=== PATIENT | female | born 1935 | race Caucasian/White ===

== ENCOUNTER 2019-04-03 08:29 | Emergency (ER) | payer MEDICARE, OTHER ==
[2019-04-03 08:42] VITALS: BP 155/90
--- NOTE | 2019-04-03 09:57 | EDM.PDOC ---
ED HPI GENERAL MEDICAL PROBLEM - General Chief Complaint: Respiratory Problem Stated Complaint: RIB PAIN DUE TO FALL Time Seen by Provider: 04/03/19 08:51 Source of Information: Reports: Patient, RN Notes Reviewed History Limitations: Reports: No Limitations - History of Present Illness INITIAL COMMENTS - FREE TEXT/NARRATIVE: The patient states that she tripped and fell over a garden hose in her backyard on 03/24/2019, somehow injuring her lower left ribs. She is not sure what she might have struck them on. Since then, she reports that she feels dyspneic while lying down, especially if lying on her left side, although lying supine is painful as well. Her greatest pain is when she gets into bed. She states that she is able to walk without difficulty. She feels like she may have exacerbated the pain when getting out of a pickup truck yesterday. She has been taking Tylenol for her discomfort. Since she is on Coumadin, she cannot take an NSAID. No prior medical evaluation for this complaint. The patient's PCP is Dr. Geoffrey Tidwell. Her Cardiology contact is JOE Rendon. Left Lower Chest Pain Score (Numeric/FACES): 7 - Related Data Allergies Allergy/AdvReac Type Severity Reaction Status Date / Time morphine Allergy Anaphylactic Verified 04/03/19 08:42 Shock oxycodone Allergy Anaphylactic Verified 04/03/19 08:42 Shock codeine AdvReac Chest Pain Verified 04/03/19 08:42 nitroglycerin AdvReac Change Verified 04/03/19 08:42 [From Nitroglyn] Mental Status tramadol AdvReac Insomnia Verified 04/03/19 08:42 shellfish AdvReac Tachycardia Uncoded 04/03/19 08:42 Home Meds: Home Meds Furosemide [Lasix] 40 tab PO BEDTIME 11/20/14 [History] Furosemide [Lasix] 80 mg PO DAILY 11/20/14 [History] Losartan [Cozaar] 25 tab PO DAILY 11/20/14 [History] Metoprolol Succinate [Toprol Xl] 100 mg PO DAILY 11/20/14 [History] Spironolactone [Aldactone] 12.5 mg PO DAILY 11/20/14 [History] Thyroid [[place] Thyroid] 30 mg PO DAILY 11/20/14 [History] Warfarin [Coumadin] 4 tab PO SUTUWETHSA 11/20/14 [History] Metoprolol Succinate 50 mg PO BEDTIME 04/03/19 [History] Warfarin [Coumadin] 2 mg PO MOFR 04/03/19 [History] Past Medical History Cardiovascular History: Reports: Afib (paroxysmal), CAD, Cardiomyopathy ( Hypertrophic), Heart Failure, High Cholesterol, Hypertension Gastrointestinal History: Reports: Celiac Disease, Colon Polyp, Diverticulosis, PUD Genitourinary History: Reports: Renal Calculus, Urinary Incontinence (stress incontinence) Musculoskeletal History: Reports: Osteoarthritis Neurological History: Reports: TIA, Other (See Below) (Essential tremor) Endocrine/Metabolic History: Reports: Hypothyroidism, Osteopenia - Past Surgical History HEENT Surgical History: Reports: Oral Surgery (Edentulous), Tonsillectomy Cardiovascular Surgical History: Reports: Coronary Artery Stent (x 3), Other ( See Below) (Coronary angiogram x 2) GI Surgical History: Reports: Cholecystectomy (1998), Colonoscopy (x 3), EGD (x 2) Female Surgical History: Reports: Other (See Below) (Repair of uterine prolapse) Musculoskeletal Surgical History: Reports: Amputation (partial, 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 ED EXAM, GENERAL - Physical Exam Exam: See Below Exam Limited By: No Limitations General Appearance: Alert, WD/WN, No Apparent Distress Eye Exam: Bilateral Eye: EOMI, Normal Inspection Ears: Normal External Exam, Hearing Grossly Normal Nose: Normal Inspection Throat/Mouth: Normal Inspection, Normal Lips, Normal Voice, No Airway Compromise Head: Atraumatic, Normocephalic Neck: Normal Inspection Respiratory/Chest: No Respiratory Distress, Lungs Clear, Normal Breath Sounds, No Accessory Muscle Use, Other (The patient is tender to the inferior ribs, left midaxillary line. No visible abnormality at this location, such as swelling , erythema, ecchymosis, abrasion, or rash. No pleural rub heard in this location.). No: Decreased Breath Sounds, Crackles, Rhonchi, Wheezing, Pleural Rub, Prolonged Expiration Cardiovascular: Normal Peripheral Pulses, Regular Rate, Rhythm, No Gallop, No JVD, No Murmur, No Rub Peripheral Pulses: 4+: Radial (L), Radial (R) GI/Abdominal: Normal Bowel Sounds, Soft, Non-Tender, No Organomegaly, No Distention, No Abnormal Bruit, No Mass, Other (5 x 2 cm essentially nontender ecchymosis to the left upper quadrant) (Female) Exam: Deferred Rectal (Female) Exam: Deferred Back Exam: Normal Inspection, Full Range of Motion, NT Extremities: Normal Inspection, Normal Range of Motion, No Pedal Edema, Normal Capillary Refill Neurological: Alert, Oriented, Normal Cognition, No Motor/Sensory Deficits, Other (Essential tremor noted) Psychiatric: Normal Affect Skin Exam: Warm, Dry, Intact, Normal Color, No Rash Course - Vital Signs Last Recorded V/S: Last Vital Signs Temp 36.2 C 04/03/19 08:38 Pulse 68 04/03/19 08:38 Resp 18 04/03/19 08:38 BP 155/90 H 04/03/19 08:38 Pulse Ox 97 04/03/19 08:38 - Re-Assessments/Exams Free Text/Narrative Re-Assessment/Exam: 04/03/19 09:22 I have ordered a chest x-ray to make sure that the patient has not suffered a significant consequence from a rib fracture, such as a hemothorax or pneumothorax. 04/03/19 10:53 2-view chest radiograph reviewed. The cardiac silhouette is within normal limits. No pulmonary vascular congestion. No pleural effusions seen. No focal infiltrate. No pneumothorax. There is mild scoliosis. Left shoulder reverse arthroplasty incidentally noted. Clips in the right upper quadrant, consistent with prior cholecystectomy incidentally noted. Formal read per the Radiologist pending. 04/03/19 11:01 Chest x-ray results discussed with the patient. I see no evidence of a broken rib, hemothorax, or pneumothorax. The patient likely contused the area when she fell. Because she is on Coumadin, I am recommending that she continue Tylenol, only. I explained that I do not feel she would be benefited by treatment with an opioid pain reliever, as it would likely increase her risk of falls. The patient stated that she does not tolerate opioids, anyway. Departure - Departure Time of Disposition: 11:02 Disposition: Home, Self-Care 01 Condition: Good Clinical Impression: Contusion of rib on left side - Discharge Information *PRESCRIPTION DRUG MONITORING PROGRAM REVIEWED*: Not Applicable *COPY OF PRESCRIPTION DRUG MONITORING REPORT IN PATIENT KYLER: Not Applicable Instructions: Rib Contusion Referrals: Geoffrey Tidwell MD [Primary Care Provider] - Hannah Felipe PA-C [Ordering Only Provider] - Forms: ED Department Discharge Additional Instructions: You were seen in the emergency room for left rib pain after tripping and falling 10 days ago. Workup in the ER included a chest x-ray, which did not find any evidence of a rib fracture. Based on your history, physical exam, and ER chest x-ray, you most likely contused (bruised) the area when you fell. We recommend that you continue to take [id number] Tylenol as needed for discomfort. Stay active. Walking is good. Follow-up with your PCP, Dr. Geoffrey Tidwell, as needed. If any other problems, please do not hesitate to return to the ER.
--- NOTE | 2019-04-04 11:18 | CR ---
Chest: Two views of the chest were obtained. Comparison: Previous chest x-ray of 10/12/17. Heart size is slightly enlarged. Tortuous thoracic aorta is seen. Lungs show slight left basilar atelectasis. Lungs otherwise are clear. Left shoulder prosthesis is seen. Mild degenerative change is noted within the spine. Bony structures are osteopenic. Surgical clips are seen from prior cholecystectomy. Lungs are mildly hyperinflated compatible with emphysematous change. Impression: 1. Findings as noted above. Nothing acute is appreciated on two-view chest x-ray. Diagnostic code #2
== END 2019-04-03 11:15 | disposition home or self-care (01) ==
LOC: JD.ED 08:29
DX: S20.212A Contusion of left front wall of thorax, initial encounter (principal); I11.0 Hypertensive heart disease with heart failure; I50.9 Heart failure, unspecified; I48.91 Unspecified atrial fibrillation; I25.10 Atherosclerotic heart disease of native coronary artery without angina pectoris; Z86.73 Personal history of transient ischemic attack (TIA), and cerebral infarction without residual deficits; E03.9 Hypothyroidism, unspecified; Z91.013 Allergy to seafood; Z88.5 Allergy status to narcotic agent; Z88.8 Allergy status to other drugs, medicaments and biological substances; Z79.899 Other long term (current) drug therapy; Z79.01 Long term (current) use of anticoagulants; Z98.890 Other specified postprocedural states; Z90.49 Acquired absence of other specified parts of digestive tract; Z95.5 Presence of coronary angioplasty implant and graft; W01.198A Fall on same level from slipping, tripping and stumbling with subsequent striking against other object, initial encounter
CPT/HCPCS: 71046; 71046-26; 99282; 99283-25

== ENCOUNTER 2019-04-29 13:49 | Inpatient (IN) | payer MEDICARE, OTHER ==
[~2019-04-29 13:49] MED LIST: Enoxaparin 30 MG/0.3 ML Syringe SUBCUT SCH
[2019-04-29] MEDS ORDERED: Diltiazem 50 MG/10 ML SDV IVPUSH ONE ×3 (14:15→14:46)
[2019-04-29] MEDS ORDERED: Sodium Chloride 0.9% 10 ML Syringe FLUSH PRN ×2 (14:16→16:45)
--- NOTE | 2019-04-29 14:43 | EDM.PDOC ---
ED HPI GENERAL MEDICAL PROBLEM - General Chief Complaint: Chest Pain Stated Complaint: SOB/HIGH BP Time Seen by Provider: 04/29/19 13:59 Source of Information: Reports: Patient, RN Notes Reviewed - History of Present Illness INITIAL COMMENTS - FREE TEXT/NARRATIVE: 84-year-old female comes in with anterior chest discomfort, palpitations, dizziness. She had onset of these symptoms about an hour ago. She does have history of hypertension and she states also does have personal history of "cardiomyopathy". She believes she has had atrial fibrillation in the past. She apparently is on Coumadin in addition to her other medications. No abdominal pain nausea or vomiting. She had been feeling totally fine earlier today. It sounds like she does keep quite active for her age with a large outdoor garden keeping her very busy this time of the year. She also does have history of hypertension, type 2 diabetes. Bilateral Chest Pain Score (Numeric/FACES): 7 - Related Data Allergies Allergy/AdvReac Type Severity Reaction Status Date / Time morphine Allergy Anaphylactic Verified 04/03/19 08:42 Shock oxycodone Allergy Anaphylactic Verified 04/03/19 08:42 Shock codeine AdvReac Chest Pain Verified 04/03/19 08:42 nitroglycerin AdvReac Change Verified 04/03/19 08:42 [From Nitroglyn] Mental Status tramadol AdvReac Insomnia Verified 04/03/19 08:42 shellfish AdvReac Tachycardia Uncoded 04/03/19 08:42 Home Meds: Home Meds Furosemide [Lasix] 40 tab PO BEDTIME 11/20/14 [History] Furosemide [Lasix] 80 mg PO DAILY 11/20/14 [History] Metoprolol Succinate [Toprol Xl] 100 mg PO DAILY 11/20/14 [History] Spironolactone [Aldactone] 25 mg PO DAILY 11/20/14 [History] Thyroid [[place] Thyroid] 30 mg PO DAILY 11/20/14 [History] Warfarin [Coumadin] 4 tab PO SUTUWETHSA 11/20/14 [History] Metoprolol Succinate 50 mg PO BEDTIME 04/03/19 [History] Warfarin [Coumadin] 2 mg PO MOFR 04/03/19 [History] Celecoxib [CeleBREX] 100 mg PO BID PRN 04/29/19 [History] Lisinopril 5 mg PO DAILY 04/29/19 [History] Past Medical History Cardiovascular History: Reports: Afib, CAD, Cardiomyopathy, Heart Failure, High Cholesterol, Hypertension Other Cardiovascular History: growth in LL chamber. hypertrophic cardiomyopathy Gastrointestinal History: Reports: Celiac Disease, Colon Polyp, Diverticulosis, PUD Other Gastrointestinal History: celiac disease Genitourinary History: Reports: Renal Calculus, Urinary Incontinence Musculoskeletal History: Reports: Osteoarthritis Neurological History: Reports: TIA, Other (See Below) Endocrine/Metabolic History: Reports: Hypothyroidism, Osteopenia - Past Surgical History HEENT Surgical History: Reports: Oral Surgery, Tonsillectomy Cardiovascular Surgical History: Reports: Coronary Artery Stent, Other (See Below) GI Surgical History: Reports: Cholecystectomy, Colonoscopy, EGD Female Surgical History: Reports: Other (See Below) Musculoskeletal Surgical History: Reports: Amputation, Knee Replacement, Shoulder Replacement Social & Family History - Family History Family Medical History: Noncontributory - Caffeine Use Caffeine Use: Reports: None - Living Situation & Occupation Living situation: Reports: , with Spouse Occupation: Retired ED ROS GENERAL - Review of Systems Review Of Systems: See Below Constitutional: Denies: Fever, Chills, Diaphoresis HEENT: Denies: Throat Pain Respiratory: Denies: Shortness of Breath, Pleuritic Chest Pain Cardiovascular: Reports: Chest Pain GI/Abdominal: Denies: Abdominal Pain, Nausea, Vomiting Musculoskeletal: Reports: Back Pain (Mild). Denies: Shoulder Pain, Arm Pain Skin: Reports: No Symptoms Neurological: Reports: Dizziness (Moderate when standing), Weakness (Mild generalized). Denies: Trouble Speaking ED EXAM, GENERAL - Physical Exam Exam: See Below General Appearance: Alert, Mild Distress Throat/Mouth: Normal Inspection, Normal Oropharynx Head: No: Facial Swelling Neck: Supple Respiratory/Chest: No Respiratory Distress, Lungs Clear, Normal Breath Sounds Cardiovascular: Irregularly Irregular GI/Abdominal: Soft, Non-Tender Extremities: Pedal Edema. No: Leg Pain (Mild bilateral), Redness Neurological: Alert, Oriented, No Motor/Sensory Deficits Skin Exam: Warm, Dry, Normal Color EKG INTERPRETATION EKG Date: 04/29/19 Rhythm: A-Fib Rate (Beats/Min): 143 QRS: Normal ST-T: Depressed (Mild ST depression V3V6) Course - Vital Signs Last Recorded V/S: Last Vital Signs Temp 97.1 F 04/29/19 14:01 Pulse 140 H 04/29/19 14:01 Resp 20 04/29/19 14:01 BP 134/77 04/29/19 14:01 Pulse Ox 95 04/29/19 14:01 - Orders/Labs/Meds Orders: Active Orders 24 hr Category Date Time Status EKG 12 Lead [EKG Documentation Completion] [RC] STAT Care 04/29/19 14:15 Active Peripheral IV Care [RC] . DIRECTED Care 04/29/19 14:17 Active Chest 1V Frontal [CR] Stat Exams 04/29/19 14:20 Taken Diltiazem 125 mg Med 04/29/19 15:15 Active Sodium Chloride 0.9% [Normal Saline] 100 ml IV TITRATE Sodium Chloride 0.9% [Normal Saline] 1,000 ml Med 04/29/19 15:45 Active IV ASDIRECTED Sodium Chloride 0.9% [Saline Flush] Med 04/29/19 14:16 Active 10 ml FLUSH ASDIRECTED PRN Peripheral IV Insertion Adult [OM.PC] Stat Oth 04/29/19 14:16 Ordered Medication Orders Acetaminophen (Tylenol) 650 mg PO Q4H PRN PRN Reason: Pain (Mild 1-3)/fever Enoxaparin Sodium (Lovenox) 40 mg SUBCUT DAILY MARANDA Diltiazem HCl 125 mg/ Sodium (Chloride) 125 mls @ 5 mls/hr IV TITRATE MARANDA; Protocol Last Admin: 04/29/19 15:30 Dose: 5 mg/hr, 5 mls/hr Sodium Chloride (Normal Saline) 1,000 mls @ 75 mls/hr IV ASDIRECTED MARANDA Last Admin: 04/29/19 15:40 Dose: 75 mls/hr Sodium Chloride (Saline Flush) 10 ml FLUSH ASDIRECTED PRN PRN Reason: Keep Vein Open Last Admin: 04/29/19 14:20 Dose: 10 ml Sodium Chloride (Saline Flush) 10 ml FLUSH ASDIRECTED PRN PRN Reason: Keep Vein Open Labs: Laboratory Tests 04/29/19 04/29/19 04/29/19 Range/Units 13:57 13:57 13:57 WBC 6.88 (3.98-10.04) K/mm3 RBC 4.34 (3.98-5.22) M/mm3 Hgb 13.6 (11.2-15.7) gm/L Hct 41.1 (34.1-44.9) % MCV 94.7 D (79.4-94.8) fl MCH 31.3 (25.6-32.2) pg MCHC 33.1 (32.2-35.5) g/dl RDW Std Deviation 42.1 (36.4-46.3) fL Plt Count 179 L (182-369) K/mm3 MPV 10.9 (9.4-12.3) fl Neut % (Auto) 60.0 (34.0-71.1) % Lymph % (Auto) 27.6 (19.3-51.7) % [place] % (Auto) 10.0 (4.7-12.5) % Eos % (Auto) 1.7 (0.7-5.8) Baso % (Auto) 0.6 (0.1-1.2) % Neut # (Auto) 4.12 (1.56-6.13) K/mm3 Lymph # (Auto) 1.90 (1.18-3.74) K/mm3 [place] # (Auto) 0.69 H (0.24-0.36) K/mm3 Eos # (Auto) 0.12 (0.04-0.36) K/mm3 Baso # (Auto) 0.04 (0.01-0.08) K/mm3 PT (9.5-12.1) SECONDS INR Sodium 139 (136-145) mEq/L Potassium 3.1 L (3.5-5.1) mEq/L Chloride 101 (98-107) mEq/L Carbon Dioxide 24 (21-32) mEq/L Anion Gap 17.1 H (5-15) BUN 22 H (7-18) mg/dL Creatinine 1.2 H (0.55-1.02) mg/dL Est Cr Clr Drug Dosing 28.59 mL/min Estimated GFR (MDRD) 43 (>60) mL/min BUN/Creatinine Ratio 18.3 H (14-18) Glucose 192 H (83-115) mg/dL Calcium 9.1 (8.5-10.1) mg/dL Total Bilirubin 0.4 (0.2-1.0) mg/dL AST 26 (15-37) U/L ALT 33 (14-59) U/L Alkaline Phosphatase 60 (46-116) U/L Troponin I 0.022 (0.00-0.056) ng/mL NT-Pro-B Natriuret Pep 580 H (0-450) pg/mL Total Protein 6.4 (6.4-8.2) g/dl Albumin 3.4 (3.4-5.0) g/dl Globulin 3.0 gm/dL Albumin/Globulin Ratio 1.1 (1-2) 04/29/19 Range/Units 13:57 WBC (3.98-10.04) K/mm3 RBC (3.98-5.22) M/mm3 Hgb (11.2-15.7) gm/L Hct (34.1-44.9) % MCV (79.4-94.8) fl MCH (25.6-32.2) pg MCHC (32.2-35.5) g/dl RDW Std Deviation (36.4-46.3) fL Plt Count (182-369) K/mm3 MPV (9.4-12.3) fl Neut % (Auto) (34.0-71.1) % Lymph % (Auto) (19.3-51.7) % [place] % (Auto) (4.7-12.5) % Eos % (Auto) (0.7-5.8) Baso % (Auto) (0.1-1.2) % Neut # (Auto) (1.56-6.13) K/mm3 Lymph # (Auto) (1.18-3.74) K/mm3 [place] # (Auto) (0.24-0.36) K/mm3 Eos # (Auto) (0.04-0.36) K/mm3 Baso # (Auto) (0.01-0.08) K/mm3 PT 15.9 H (9.5-12.1) SECONDS INR 1.47 Sodium (136-145) mEq/L Potassium (3.5-5.1) mEq/L Chloride (98-107) mEq/L Carbon Dioxide (21-32) mEq/L Anion Gap (5-15) BUN (7-18) mg/dL Creatinine (0.55-1.02) mg/dL Est Cr Clr Drug Dosing mL/min Estimated GFR (MDRD) (>60) mL/min BUN/Creatinine Ratio (14-18) Glucose (83-115) mg/dL Calcium (8.5-10.1) mg/dL Total Bilirubin (0.2-1.0) mg/dL AST (15-37) U/L ALT (14-59) U/L Alkaline Phosphatase (46-116) U/L Troponin I (0.00-0.056) ng/mL NT-Pro-B Natriuret Pep (0-450) pg/mL Total Protein (6.4-8.2) g/dl Albumin (3.4-5.0) g/dl Globulin gm/dL Albumin/Globulin Ratio (1-2) Meds: Medications Generic Name Dose Route Start Last Admin Trade Name Freq PRN Reason Stop Dose Admin Acetaminophen 650 mg 04/29/19 16:45 Tylenol PO Q4H PRN Pain (Mild 1-3)/fever Enoxaparin Sodium 40 mg 04/29/19 09:00 Lovenox SUBCUT DAILY MARANDA Diltiazem HCl 125 mg/ Sodium 125 mls @ 5 mls/hr 04/29/19 15:15 04/29/19 15:30 Chloride IV 5 mg/hr TITRATE MARANDA 5 mls/hr Administration Protocol 5 MG/HR Sodium Chloride 1,000 mls @ 75 mls/hr 04/29/19 15:45 04/29/19 15:40 Normal Saline IV 75 mls/hr ASDIRECTED MARANDA Administration Sodium Chloride 10 ml 04/29/19 14:16 04/29/19 14:20 Saline Flush FLUSH 10 ml ASDIRECTED PRN Administration Keep Vein Open Sodium Chloride 10 ml 04/29/19 16:45 Saline Flush FLUSH ASDIRECTED PRN Keep Vein Open Discontinued Medications Generic Name Dose Route Start Last Admin Trade Name Freq PRN Reason Stop Dose Admin Diltiazem HCl 10 mg 04/29/19 14:15 04/29/19 14:20 Cardizem IVPUSH 04/29/19 14:16 5 mg ONETIME ONE Administration Diltiazem HCl 2.5 mg 04/29/19 14:43 04/29/19 14:46 Cardizem IVPUSH 04/29/19 14:44 2.5 mg ONETIME ONE Administration Diltiazem HCl 2.5 mg 04/29/19 14:46 04/29/19 14:56 Cardizem IVPUSH 04/29/19 14:47 2.5 mg ONETIME ONE Administration Potassium Chloride 40 meq 04/29/19 15:30 04/29/19 15:45 Klor-Con M20 PO 04/29/19 15:31 40 meq ONETIME ONE Administration - Re-Assessments/Exams Free Text/Narrative Re-Assessment/Exam: 04/29/19 15:09 Chest x-ray looks fine, we did give diltiazem 5 mg IV and heart rate has come down to the 95 to 115 range. Another 2.5 mg diltiazem IV was ordered. We'll start a diltiazem drip at this time. Labs are as documented. Troponin has come back at 0.0-2. K+ to be 3.1. Other labs were relatively normal. She does not appear to be in any significant heart failure at this time. Patient will be admitted to ICU for further treatment. She will be given potassium 40 mEq by mouth. Departure - Departure Time of Disposition: 15:15 Disposition: Admitted As Inpatient 66 Condition: Fair Clinical Impression: Atrial fibrillation with RVR ED Communication - Discussed Case With (1) Discussed Case With (1): Admitting Provider (Dr Cooper, decision to admit at about 15:05.) - My Orders Last 24 Hours: My Active Orders 04/29/19 14:15 EKG 12 Lead [EKG Documentation Completion] [RC] STAT 04/29/19 14:16 Sodium Chloride 0.9% [Saline Flush] 10 ml FLUSH ASDIRECTED PRN Peripheral IV Insertion Adult [OM.PC] Stat 04/29/19 14:17 Peripheral IV Care [RC] . DIRECTED 04/29/19 14:20 Chest 1V Frontal [CR] Stat 04/29/19 15:15 Diltiazem 125 mg Sodium Chloride 0.9% [Normal Saline] 100 ml IV TITRATE 04/29/19 15:45 Sodium Chloride 0.9% [Normal Saline] 1,000 ml IV ASDIRECTED - Assessment/Plan Last 24 Hours: My Active Orders 04/29/19 14:15 EKG 12 Lead [EKG Documentation Completion] [RC] STAT 04/29/19 14:16 Sodium Chloride 0.9% [Saline Flush] 10 ml FLUSH ASDIRECTED PRN Peripheral IV Insertion Adult [OM.PC] Stat 04/29/19 14:17 Peripheral IV Care [RC] . DIRECTED 04/29/19 14:20 Chest 1V Frontal [CR] Stat 04/29/19 15:15 Diltiazem 125 mg Sodium Chloride 0.9% [Normal Saline] 100 ml IV TITRATE 04/29/19 15:45 Sodium Chloride 0.9% [Normal Saline] 1,000 ml IV ASDIRECTED
[2019-04-29] MEDS ORDERED: Diltiazem 125 MG in Sodium Chloride 0.9% 100 ML IV SCH (15:15)
[2019-04-29] MEDS ORDERED: Potassium Chloride 20 MEQ Tab.ER PO ONE ×2 (15:30→17:43)
[2019-04-29] MEDS: Sodium Chloride 0.9% 1,000 ML IV SCH (15:40)
[2019-04-29] MEDS ORDERED: Acetaminophen 325 MG Tab PO PRN (16:45)
--- NOTE | 2019-04-29 17:14 | PCM.HP ---
H&P History of Present Illness - General Date of Service: 04/29/19 Admit Problem/Dx: Admission Diagnosis/Problem Admission Diagnosis/Problem Atrial fibrillation with rapid ventricular response presented to er with afib and rvr 130s to 140s and having mild banks and not feeling well hx of paf on meds and compliant by hx. on thyroid and multiple meds including beta eber . k low and mag. pending and ca normal . on lasix high dose and working alot in garden but drinks lot of fluid . pt on coumadin subtheraputic . hx of cad and stents x 3 2 years ago . 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 hx of cardiomyaopathy ihss and thinks is obstructing , no hx of cardiac arrest or syncope. on celabrex for arthritis and spironolactone and arb as well . no k suppliments inr 1.47 . started on diltiazem drip and rate coming down. denies other symptoms or cv signs starting oral potassium and checking mag. Source of Information: Patient, EMS Notes Reviewed, Family, Old Records History Limitations: Reports: No Limitations - History of Present Illness Onset of Symptoms: Reports: Today Duration of Symptoms: Reports: Hour(s): (2) Location: Reports: Chest, Generalized Quality: Reports: Same as Previous Episode Improves with: Reports: None Worsens with: Reports: None Associated Symptoms: Reports: No Other Symptoms Bilateral Chest Pain Score (Numeric/FACES): 7 - Related Data Allergies/Adverse Reactions: Allergies Allergy/AdvReac Type Severity Reaction Status Date / Time morphine Allergy Anaphylactic Verified 04/03/19 08:42 Shock oxycodone Allergy Anaphylactic Verified 04/03/19 08:42 Shock codeine AdvReac Chest Pain Verified 04/03/19 08:42 nitroglycerin AdvReac Change Verified 04/03/19 08:42 [From Nitroglyn] Mental Status tramadol AdvReac Insomnia Verified 04/03/19 08:42 shellfish AdvReac Tachycardia Uncoded 04/03/19 08:42 Home Medications: Home Meds Furosemide [Lasix] 40 tab PO BEDTIME 11/20/14 [History] Furosemide [Lasix] 80 mg PO DAILY 11/20/14 [History] Metoprolol Succinate [Toprol Xl] 100 mg PO DAILY 11/20/14 [History] Spironolactone [Aldactone] 25 mg PO DAILY 11/20/14 [History] Thyroid [[place] Thyroid] 30 mg PO DAILY 11/20/14 [History] Warfarin [Coumadin] 4 tab PO SUTUWETHSA 11/20/14 [History] Metoprolol Succinate 50 mg PO BEDTIME 04/03/19 [History] Warfarin [Coumadin] 2 mg PO MOFR 04/03/19 [History] Celecoxib [CeleBREX] 100 mg PO BID PRN 04/29/19 [History] Lisinopril 5 mg PO DAILY 04/29/19 [History] Past Medical History Cardiovascular History: Reports: Afib, CAD, Cardiomyopathy (possable ihss with obstruction of lv), Heart Failure, High Cholesterol, Hypertension, Stents Other Cardiovascular History: growth in LL chamber. hypertrophic cardiomyopathy Gastrointestinal History: Reports: Celiac Disease, Colon Polyp, Diverticulosis, PUD Other Gastrointestinal History: celiac disease Genitourinary History: Reports: Renal Calculus, Urinary Incontinence Musculoskeletal History: Reports: Osteoarthritis Neurological History: Reports: TIA, Other (See Below) Endocrine/Metabolic History: Reports: Hypothyroidism, Osteopenia - Past Surgical History Head Surgeries/Procedures: Reports: None (4th finger rt) HEENT Surgical History: Reports: Oral Surgery, Tonsillectomy Cardiovascular Surgical History: Reports: Coronary Artery Stent, Other (See Below) GI Surgical History: Reports: Cholecystectomy, Colonoscopy, EGD Female Surgical History: Reports: Other (See Below) Musculoskeletal Surgical History: Reports: Amputation, Knee Replacement, Shoulder Replacement Social & Family History - Family History Family Medical History: Noncontributory - Tobacco Use Smoking Status *Q: Never Smoker Tobacco Use Within Last Twelve Months: No Used Tobacco, but Quit: No Second Hand Smoke Exposure: No - Caffeine Use Caffeine Use: Reports: None - Recreational Drug Use Recreational Drug Use: No - Living Situation & Occupation Living situation: Reports: , with Spouse Occupation: Retired H&P Review of Systems - Review of Systems: Review Of Systems: See Below General: Reports: No Symptoms HEENT: Reports: No Symptoms Pulmonary: Reports: No Symptoms Cardiovascular: Reports: No Symptoms Gastrointestinal: Reports: No Symptoms Genitourinary: Reports: No Symptoms Musculoskeletal: Reports: No Symptoms Skin: Reports: No Symptoms Psychiatric: Reports: No Symptoms Neurological: Reports: No Symptoms Hematologic/Lymphatic: Reports: No Symptoms Immunologic: Reports: No Symptoms Exam - Exam Exam: See Below - Vital Signs Vital Signs: Last Vital Signs Temp 36.2 C 04/29/19 14:01 Pulse 140 H 04/29/19 14:01 Resp 20 04/29/19 14:01 BP 134/77 04/29/19 14:01 Pulse Ox 95 04/29/19 14:01 Weight: 67.449 kg - Exam General: Alert, Oriented, 4 HEENT: PERRLA, Hearing Intact, Mucosa Moist & [place], Nares Patent, Normal Nasal Septum, Posterior Pharynx Clear, Conjunctiva Clear, EOMI, EACs Clear, TMs Clear Neck: Supple, Trachea Midline, 2 Lungs: Clear to Auscultation, Normal Respiratory Effort Cardiovascular: Regular Rate, Regular Rhythm GI/Abdominal Exam: Normal Bowel Sounds, Soft, Non-Tender, No Organomegaly, No Distention, No Abnormal Bruit, No Mass, Pelvis Stable (Female) Exam: Normal External Exam, Normal Speculum Exam, Normal Bimanual Exam Rectal (Female) Exam: Normal Exam, Normal Rectal Tone Back Exam: Normal Inspection, Full Range of Motion, NT Extremities: Normal Inspection, Normal Range of Motion, Non-Tender, No Pedal Edema, Normal Capillary Refill Skin: Warm, Dry, Intact Neurological: Cranial Nerves Intact, Reflexes Equal Bilateral Neuro Extensive - Mental Status: Alert, Oriented x3, Normal Mood/Affect, Normal Cognition Neuro Extensive - Motor, Sensory, Reflexes: CN II-XII Intact, Normal Gait, Normal Reflexes Psychiatric: Alert, Normal Affect, Normal Mood - Patient Data Lab Results Last 24 hrs: Laboratory Results - last 24 hr 04/29/19 04/29/19 04/29/19 Range/Units 13:57 13:57 13:57 WBC 6.88 (3.98-10.04) K/mm3 RBC 4.34 (3.98-5.22) M/mm3 Hgb 13.6 (11.2-15.7) gm/L Hct 41.1 (34.1-44.9) % MCV 94.7 D (79.4-94.8) fl MCH 31.3 (25.6-32.2) pg MCHC 33.1 (32.2-35.5) g/dl RDW Std Deviation 42.1 (36.4-46.3) fL Plt Count 179 L (182-369) K/mm3 MPV 10.9 (9.4-12.3) fl Neut % (Auto) 60.0 (34.0-71.1) % Lymph % (Auto) 27.6 (19.3-51.7) % Bertie % (Auto) 10.0 (4.7-12.5) % Eos % (Auto) 1.7 (0.7-5.8) Baso % (Auto) 0.6 (0.1-1.2) % Neut # (Auto) 4.12 (1.56-6.13) K/mm3 Lymph # (Auto) 1.90 (1.18-3.74) K/mm3 Bertie # (Auto) 0.69 H (0.24-0.36) K/mm3 Eos # (Auto) 0.12 (0.04-0.36) K/mm3 Baso # (Auto) 0.04 (0.01-0.08) K/mm3 PT (9.5-12.1) SECONDS INR Sodium 139 (136-145) mEq/L Potassium 3.1 L (3.5-5.1) mEq/L Chloride 101 (98-107) mEq/L Carbon Dioxide 24 (21-32) mEq/L Anion Gap 17.1 H (5-15) BUN 22 H (7-18) mg/dL Creatinine 1.2 H (0.55-1.02) mg/dL Est Cr Clr Drug Dosing 28.59 mL/min Estimated GFR (MDRD) 43 (>60) mL/min BUN/Creatinine Ratio 18.3 H (14-18) Glucose 192 H (83-115) mg/dL Calcium 9.1 (8.5-10.1) mg/dL Total Bilirubin 0.4 (0.2-1.0) mg/dL AST 26 (15-37) U/L ALT 33 (14-59) U/L Alkaline Phosphatase 60 (46-116) U/L Troponin I 0.022 (0.00-0.056) ng/mL NT-Pro-B Natriuret Pep 580 H (0-450) pg/mL Total Protein 6.4 (6.4-8.2) g/dl Albumin 3.4 (3.4-5.0) g/dl Globulin 3.0 gm/dL Albumin/Globulin Ratio 1.1 (1-2) 04/29/19 Range/Units 13:57 WBC (3.98-10.04) K/mm3 RBC (3.98-5.22) M/mm3 Hgb (11.2-15.7) gm/L Hct (34.1-44.9) % MCV (79.4-94.8) fl MCH (25.6-32.2) pg MCHC (32.2-35.5) g/dl RDW Std Deviation (36.4-46.3) fL Plt Count (182-369) K/mm3 MPV (9.4-12.3) fl Neut % (Auto) (34.0-71.1) % Lymph % (Auto) (19.3-51.7) % Bertie % (Auto) (4.7-12.5) % Eos % (Auto) (0.7-5.8) Baso % (Auto) (0.1-1.2) % Neut # (Auto) (1.56-6.13) K/mm3 Lymph # (Auto) (1.18-3.74) K/mm3 Bertie # (Auto) (0.24-0.36) K/mm3 Eos # (Auto) (0.04-0.36) K/mm3 Baso # (Auto) (0.01-0.08) K/mm3 PT 15.9 H (9.5-12.1) SECONDS INR 1.47 Sodium (136-145) mEq/L Potassium (3.5-5.1) mEq/L Chloride (98-107) mEq/L Carbon Dioxide (21-32) mEq/L Anion Gap (5-15) BUN (7-18) mg/dL Creatinine (0.55-1.02) mg/dL Est Cr Clr Drug Dosing mL/min Estimated GFR (MDRD) (>60) mL/min BUN/Creatinine Ratio (14-18) Glucose (83-115) mg/dL Calcium (8.5-10.1) mg/dL Total Bilirubin (0.2-1.0) mg/dL AST (15-37) U/L ALT (14-59) U/L Alkaline Phosphatase (46-116) U/L Troponin I (0.00-0.056) ng/mL NT-Pro-B Natriuret Pep (0-450) pg/mL Total Protein (6.4-8.2) g/dl Albumin (3.4-5.0) g/dl Globulin gm/dL Albumin/Globulin Ratio (1-2) Result Diagrams: 04/29/19 13:57 04/29/19 13:57 EKG INTERPRETATION EKG Date: 04/29/19 Rhythm: A-Fib [place]: Normal P-Wave: Absent QRS: Normal ST-T: Normal QT: Prolonged Comparison: No Change - Problem List (1) Protime monitoring SNOMED Code(s): 463848280, 177726856 ICD Code: Z01.89 - ENCOUNTER FOR OTHER SPECIFIED SPECIAL EXAMINATIONS Status: Acute Priority: Medium Current Visit: Yes Onset Date: 04/29/19 Problem Details: subtheraputic pt inr 1.47 (2) Hypothyroidism SNOMED Code(s): 97885769 ICD Code: E03.9 - HYPOTHYROIDISM, UNSPECIFIED Status: Acute Priority: Medium Current Visit: Yes Onset Date: 04/29/19 Qualifiers: Hypothyroidism type: unspecified Qualified Code(s): E03.9 - Hypothyroidism , unspecified (3) Atrial fibrillation with RVR SNOMED Code(s): 200940230818405 ICD Code: I48.91 - UNSPECIFIED ATRIAL FIBRILLATION Status: Acute Priority : High Current Visit: Yes Onset Date: 04/29/19 Problem Details: recurrant or paroxsimal (4) Hx of idiopathic hypertrophic subaortic stenosis SNOMED Code(s): 136709989 ICD Code: Z86.79 - PERSONAL HISTORY OF OTHER DISEASES OF THE CIRCULATORY SYSTEM Status: Acute Current Visit: Yes Onset Date: 04/29/19 Problem Details: reviewing old echo (5) CAD (coronary artery disease) SNOMED Code(s): 22482289 ICD Code: I25.10 - ATHSCL HEART DISEASE OF [place] CORONARY ARTERY W/O ANG PCTRS Status: Acute Current Visit: Yes Qualifiers: Coronary Disease-Associated Artery/Lesion type: due to lipid rich plaque Qualified Code(s): I25.10 - Atherosclerotic heart disease of [place] coronary artery without angina pectoris; I25.83 - Coronary atherosclerosis due to lipid rich plaque (6) Stented coronary artery Status: Acute Priority: Medium Current Visit: Yes Onset Date: 04/29/19 (7) Hypokalemia SNOMED Code(s): 55713210 ICD Code: E87.6 - HYPOKALEMIA Status: Acute Priority: High Current Visit: Yes Problem Details: contributing to afib recurrance suspected , from high lasix dose (8) Coronary arteriosclerosis, CAD SNOMED Code(s): 80563743 ICD Code: I25.10 - ATHSCL HEART DISEASE OF [place] CORONARY ARTERY W/O ANG PCTRS Status: Acute Current Visit: No Problem List Initiated/Reviewed/Updated: Yes Orders Last 24hrs: Active Orders 24 hr Category Date Time Status Admission Status [Patient Status] [ADT] Routine ADT 04/29/19 16:03 Active Patient Status [ADT] Routine ADT 04/29/19 16:43 Ordered Patient Status [ADT] Routine ADT 04/29/19 16:45 Ordered Bedrest Bathroom Privileges [RC] ASDIRECTED Care 04/29/19 16:45 Ordered Cardiac Monitoring [RC] CONTINUOUS Care 04/29/19 16:47 Ordered EKG 12 Lead [EKG Documentation Completion] [RC] STAT Care 04/29/19 14:15 Active EKG Documentation Completion [RC] ROUTINE Care 04/30/19 16:45 Ordered Oxygen Therapy [RC] PRN Care 04/29/19 16:43 Ordered Oxygen Therapy [RC] PRN Care 04/29/19 16:45 Ordered Peripheral IV Care [RC] . DIRECTED Care 04/29/19 14:17 Active Peripheral IV Care [RC] . DIRECTED Care 04/29/19 16:51 Ordered Up With Assistance [RC] ASDIRECTED Care 04/29/19 16:45 Ordered VTE/DVT Education [RC] PER UNIT ROUTINE Care 04/29/19 16:45 Ordered Vital Signs [RC] Q4H Care 04/29/19 16:43 Ordered Vital Signs [RC] Q4H Care 04/29/19 16:45 Ordered Regular Diet [DIET] Diet 04/29/19 Dinner Ordered Chest 1V Frontal [CR] Stat Exams 04/29/19 14:20 Taken BASIC METABOLIC PANEL,BMP [CHEM] AM Lab 04/30/19 05:11 Ordered INR,PT,PROTHROMBIN TIME [COAG] AM Lab 04/30/19 05:11 Ordered MAGNESIUM [CHEM] Routine Lab 04/29/19 17:07 Ordered Acetaminophen [Tylenol] Med 04/29/19 16:45 Ordered 650 mg PO Q4H PRN Diltiazem 125 mg Med 04/29/19 15:15 Active Sodium Chloride 0.9% [Normal Saline] 100 ml IV TITRATE Enoxaparin [Lovenox] Med 04/29/19 09:00 Ordered 40 mg SUBCUT DAILY Lisinopril [Prinivil] Med 04/30/19 09:00 Ordered 5 mg PO DAILY Metoprolol Succinate Med 04/30/19 09:00 Ordered 100 mg PO DAILY Metoprolol Succinate [Toprol XL] Med 04/29/19 21:00 Ordered 50 mg PO BEDTIME Potassium Chloride [Klor-Con M20] Med 04/29/19 21:00 Ordered 20 meq PO BID Sodium Chloride 0.9% [Normal Saline] 1,000 ml Med 04/29/19 15:45 Active IV ASDIRECTED Sodium Chloride 0.9% [Saline Flush] Med 04/29/19 14:16 Active 10 ml FLUSH ASDIRECTED PRN Sodium Chloride 0.9% [Saline Flush] Med 04/29/19 16:45 Ordered 10 ml FLUSH ASDIRECTED PRN Spironolactone [Aldactone] Med 04/30/19 09:00 Ordered 25 mg PO DAILY Thyroid Med 04/30/19 09:00 Ordered 30 mg PO DAILY Warfarin [Coumadin] Med 04/29/19 16:59 Once 2 mg PO ONETIME ONE Warfarin [Coumadin] Med 04/29/19 18:00 Ordered 4 mg PO DAILY@1800 Peripheral IV Insertion Adult [OM.PC] Routine Oth 04/29/19 16:45 Ordered Peripheral IV Insertion Adult [OM.PC] Stat Oth 04/29/19 14:16 Ordered Resuscitation Status Routine Resus Stat 04/29/19 16:43 Ordered Medication Orders Acetaminophen (Tylenol) 650 mg PO Q4H PRN PRN Reason: Pain (Mild 1-3)/fever Enoxaparin Sodium (Lovenox) 30 mg SUBCUT DAILY MARANDA Diltiazem HCl 125 mg/ Sodium (Chloride) 125 mls @ 5 mls/hr IV TITRATE MARANDA; Protocol Last Admin: 04/29/19 15:30 Dose: 5 mg/hr, 5 mls/hr Sodium Chloride (Normal Saline) 1,000 mls @ 75 mls/hr IV ASDIRECTED MARANDA Last Admin: 04/29/19 15:40 Dose: 75 mls/hr Lisinopril (Prinivil) 5 mg PO DAILY MARANDA Metoprolol Succinate (Toprol Xl) 50 mg PO BEDTIME MARANDA Non-Formulary Medication (Metoprolol Succinate) 100 mg PO DAILY MARANDA Non-Formulary Medication (Thyroid) 30 mg PO DAILY MARANDA Potassium Chloride (Klor-Con M20) 20 meq PO BID MARANDA Sodium Chloride (Saline Flush) 10 ml FLUSH ASDIRECTED PRN PRN Reason: Keep Vein Open Last Admin: 04/29/19 14:20 Dose: 10 ml Sodium Chloride (Saline Flush) 10 ml FLUSH ASDIRECTED PRN PRN Reason: Keep Vein Open Spironolactone (Aldactone) 25 mg PO DAILY MARANDA Warfarin Sodium (Coumadin) 4 mg PO DAILY@1800 MARANDA Warfarin Sodium (Coumadin) 2 mg PO ONETIME ONE Stop: 04/29/19 17:00 titrate diltiazem/ oral k . check mag. repeat ekg minimal changes noted . starting to converta nd recommended high k foods / tsh pending / increased coumadin . no ansiads for now . hold lasix cont iv fluids ns and rechecck blood sugars ( elavated ) Assessment/Plan Comment:: see orders
[2019-04-29] MEDS ORDERED: Potassium Chloride 10 MEQ in Premix Bag 1 BAG IV SCH (17:45)
[2019-04-29] MEDS: Potassium Chloride 10 MEQ in Premix Bag 1 BAG IV SCH ×2 (18:18→19:15)
[2019-04-29] MEDS ORDERED: Warfarin 2 MG Tab PO ONE (19:30)
[2019-04-29] MEDS ORDERED: Warfarin 4 MG Tab PO ONE (19:30)
[2019-04-29] MEDS: Potassium Chloride 20 MEQ Tab.ER PO SCH (20:58)
[2019-04-29] MEDS ORDERED: Metoprolol Succinate 50 MG Tab.ER PO SCH (21:00)
[2019-04-29] MEDS ORDERED: Diltiazem 120 MG Cap.CD PO ONE (21:00)
[2019-04-30] MEDS: Sodium Chloride 0.9% 1,000 ML IV SCH (04:52)
[2019-04-30 06:35] LABS: HEMOGLOBIN A1C 5.8 % (4.50-6.20)
[2019-04-30] MEDS ORDERED: ARMOUR THYROID 30 MG PO SCH (09:00)
[2019-04-30] MEDS ORDERED: Metoprolol Succinate 50 MG Tab.ER PO SCH ×2 (09:00→10:15)
[2019-04-30] MEDS ORDERED: Spironolactone 25 MG Tab PO SCH (09:00)
[2019-04-30] MEDS ORDERED: Lisinopril 10 MG Tab PO SCH (09:00)
[2019-04-30] MEDS ORDERED: Lisinopril 5 MG Tab PO SCH ×2 (09:00→10:15)
[2019-04-30] MEDS ORDERED: Potassium Chloride 20 MEQ Tab.ER PO SCH (10:15)
[2019-04-30] MEDS ORDERED: Diltiazem 120 MG Cap.CD PO SCH (10:15)
[2019-04-30] MEDS: Potassium Chloride 20 MEQ Tab.ER PO SCH (10:28)
--- NOTE | 2019-04-30 12:04 | PCM.DCSUM1 ---
Discharge Summary - Hospital Course HPI Initial Comments: presented to er with afib and rvr 130s to 140s and having mild banks and not feeling well hx of paf on meds and compliant by hx. on thyroid and multiple meds including beta eber . k low and mag. pending and ca normal . on lasix high dose and working alot in garden but drinks lot of fluid . pt on coumadin subtheraputic . hx of cad and stents x 3 2 years ago . no local technical consultant . hx of cardiomyaopathy ihss and thinks is obstructing , no hx of cardiac arrest or syncope. on celabrex for arthritis and spironolactone and arb as well . no k suppliments inr 1.47 . started on diltiazem drip and rate coming down. denies other symptoms or cv signs starting oral potassium and checking mag. Diagnosis: Stroke: No - Discharge Data Discharge Date: 04/30/19 (Admit date: ) Discharge Disposition: Home, Self-Care 01 Condition: Good - Discharge Diagnosis/Problem(s) (1) On warfarin at home SNOMED Code(s): 835948026 ICD Code: Z79.01 - LAUNDRY TUB MAKER (CURRENT) USE OF ANTICOAGULANTS Status: Acute Current Visit: Yes (2) Atrial fibrillation with RVR SNOMED Code(s): 919010904139894 ICD Code: I48.91 - UNSPECIFIED ATRIAL FIBRILLATION Status: Acute Priority : High Current Visit: Yes Onset Date: 04/29/19 Problem Details: recurrant or paroxsimal (3) CAD (coronary artery disease) SNOMED Code(s): 36566808 ICD Code: I25.10 - ATHSCL HEART DISEASE OF [place] CORONARY ARTERY W/O ANG PCTRS Status: Acute Current Visit: Yes Qualifiers: Coronary Disease-Associated Artery/Lesion type: due to lipid rich plaque Qualified Code(s): I25.10 - Atherosclerotic heart disease of [place] coronary artery without angina pectoris; I25.83 - Coronary atherosclerosis due to lipid rich plaque (4) Hx of idiopathic hypertrophic subaortic stenosis SNOMED Code(s): 632857284 ICD Code: Z86.79 - PERSONAL HISTORY OF OTHER DISEASES OF THE CIRCULATORY SYSTEM Status: Acute Current Visit: Yes Onset Date: 04/29/19 Problem Details: reviewing old echo (5) Hypokalemia SNOMED Code(s): 80078303 ICD Code: E87.6 - HYPOKALEMIA Status: Acute Priority: High Current Visit: Yes Problem Details: contributing to afib recurrance suspected , from high lasix dose (6) Hypothyroidism SNOMED Code(s): 27909828 ICD Code: E03.9 - HYPOTHYROIDISM, UNSPECIFIED Status: Acute Priority: Medium Current Visit: Yes Onset Date: 04/29/19 Qualifiers: Hypothyroidism type: unspecified Qualified Code(s): E03.9 - Hypothyroidism , unspecified (7) Stented coronary artery Status: Acute Priority: Medium Current Visit: Yes Onset Date: 04/29/19 (8) Atypical chest pain SNOMED Code(s): 399294793 ICD Code: R07.89 - OTHER CHEST PAIN Status: Acute Current Visit: No (9) Subtherapeutic international normalized ratio (INR) SNOMED Code(s): 912300583, 434831214 ICD Code: R79.1 - ABNORMAL COAGULATION PROFILE Status: Acute Priority: High Current Visit: Yes - Patient Summary/Data Labs Pending at D/C: None Recommended Follow-up Testing/Procedures: Follow-up with PCP within 3-5 days of discharge. -Recommend re-check electrolytes and 12-lead EKG at that appointment Repeat INR ordered for 05/03/[address] [facility] with results to PCP - Dr. Tidwell Follow-up with Hannah Felipe PA-C within the next month Hospital Course: Deb presented to our ED on 04/29/19 with anterior chest discomfort, palpitations , and dizziness. At that time she was noted to be in A. fib with RVR having a rate in the 130s to 140s. She does have a rather significant cardiac history including prior episodes of A. fib, CAD, hypertrophic cardiomyopathy, heart failure, and HLD. She was also noted to be subtherapeutic with her INR of 1.47. In the ED she was given a 5 mg IV push of diltiazem which brought her heart rate down in the 95 to 115 range. This was followed by another 2.5 mg IV push of Cardizem. Cardizem drip was then started at 5 mg. Potassium was noted to be very low at 3.1 and she is given 40 mEq oral potassium. She is then admitted to the ICU. Magnesium is noted to be normal along with calcium. Potassium continued to be supplemented orally. She did respond well to the Cardizem drip and was able to be weaned off. She was then switched to 120 mg by mouth daily Cardizem. She is already on metoprolol and dosing was changed to 50 mg by mouth twice a day. She is on significant amounts of Lasix and it is felt that this is likely a cause of her low potassium. This was decreased to 40 mg twice a day. Discussion ensued about whether or not to increase her lisinopril and ultimately it was decided it should remain at 5 mg by mouth daily. Spironolactone was continued at home dose. She is very hesitant to take new medications or have her medications adjusted as in the past she has reportedly had multiple complications from changes. She is quite convinced that many of these symptoms on this visit were caused by a detox tea she had consumed. Discussion was also had with pharmacy about warfarin dosing and decision was made to set warfarin at 4 mg by mouth every afternoon. She responded well to treatment and heart rate has actually been in the upper 50s to low 60s. She would occasionally drop into the 40s however she remained asymptomatic. We discussed monitoring blood pressure and heart rate after discharge and she does report she has a blood pressure cuff at home. She was instructed to take this twice a day and record blood pressure and heart rate in a journal, bringing this with to all medical appointments. She was instructed to immediately sit down or lie down should she feel dizzy. She has not had any episodes of dizziness or lightheadedness while here. She was instructed to report to [facility] on 05/03/19 and have her INR checked with results to her primary care provider, Dr. Tidwell. She is aware her warfarin dosing may change again. She was instructed to follow-up with her primary care provider within the next 3-5 days. It is recommended that she have a repeat 12-lead EKG looking for QT prolongation at that time. Also recommend rechecking electrolytes, including potassium. She will be discharged on 3 more days of by mouth potassium. She will also be discharged on prior mentioned medication changes as suggested by Dr. Cooper. She was instructed to follow-up with her certified phlebotomist within the next month. She was also told if symptoms return or worsen she should contact her primary care provider's office or come to the emergency room. She will be discharged today. - Patient Instructions Diet: Heart Healthy Diet Activity: As Tolerated Driving: Do Not Drive (today ) Notify Provider of: Fever, Increased Pain, Nausea and/or Vomiting - Discharge Plan *PRESCRIPTION DRUG MONITORING PROGRAM REVIEWED*: No *COPY OF PRESCRIPTION DRUG MONITORING REPORT IN PATIENT KYLER: No Prescriptions/Med Rec: Diltiazem [Cardizem CD] 120 mg PO DAILY #30 cap.cd Furosemide [Lasix] 40 mg PO BIDDIURETIC #60 tablet Metoprolol Succinate [Toprol XL 50mg] 50 mg PO BID #1 tab.er Potassium Chloride [Klor-Con M20] 20 meq PO DAILY #3 tab.er Warfarin [Coumadin] 4 mg PO QPM #1 tablet Home Medications: Home Meds Spironolactone [Aldactone] 25 mg PO DAILY 11/20/14 [History] Thyroid [[place] Thyroid] 30 mg PO DAILY 11/20/14 [History] Celecoxib [CeleBREX] 100 mg PO BID PRN 04/29/19 [History] Lisinopril 5 mg PO DAILY 04/29/19 [History] Diltiazem [Cardizem CD] 120 mg PO DAILY #30 cap.cd 04/30/19 [Rx] Furosemide [Lasix] 40 mg PO BIDDIURETIC #60 tablet 04/30/19 [Rx] Metoprolol Succinate [Toprol XL 50mg] 50 mg PO BID #1 tab.er 04/30/19 [Rx] Potassium Chloride [Klor-Con M20] 20 meq PO DAILY #3 tab.er 04/30/19 [Rx] Warfarin [Coumadin] 4 mg PO QPM #1 tablet 04/30/19 [Rx] Oxygen Therapy Mode: Room Air Patient Handouts: Bleeding Precautions When on Anticoagulant Therapy, Adult, Hypokalemia, Potassium Content of Foods, Atrial Fibrillation, [id number] Forms: ED Department Discharge Referrals: Geoffrey Tidwell MD [Primary Care Provider] - - Discharge Summary/Plan Comment DC Time >30 min.: Yes (45 minutes) - General Info Date of Service: 04/30/19 Admission Dx/Problem (Free Text: Admission Diagnosis/Problem Admission Diagnosis/Problem Atrial fibrillation with rapid ventricular response presented to er with afib and rvr 130s to 140s and having mild banks and not feeling well hx of paf on meds and compliant by hx. on thyroid and multiple meds including beta eber . k low and mag. pending and ca normal . on lasix high dose and working alot in garden but drinks lot of fluid . pt on coumadin subtheraputic . hx of cad and stents x 3 2 years ago . no local technical consultant . hx of cardiomyaopathy ihss and thinks is obstructing , no hx of cardiac arrest or syncope. on celabrex for arthritis and spironolactone and arb as well . no k suppliments inr 1.47 . started on diltiazem drip and rate coming down. denies other symptoms or cv signs starting oral potassium and checking mag. Functional Status: Reports: Pain Controlled, Tolerating Diet, Ambulating, Urinating. Denies: New Symptoms - Review of Systems General: Reports: No Symptoms. Denies: Fever, Weakness, Fatigue, Malaise HEENT: Reports: No Symptoms. Denies: Headaches, Sore Throat Pulmonary: Reports: No Symptoms. Denies: Shortness of Breath, Cough, Sputum, Wheezing Cardiovascular: Reports: Edema (chronic ). Denies: Chest Pain, Palpitations Gastrointestinal: Reports: No Symptoms. Denies: Abdominal Pain, Constipation, Diarrhea, Nausea, Vomiting Genitourinary: Reports: No Symptoms. Denies: Pain Musculoskeletal: Reports: No Symptoms Skin: Reports: No Symptoms. Denies: Cyanosis Neurological: Reports: No Symptoms. Denies: Confusion, Trouble Speaking, Difficulty Walking, Gait Disturbance Psychiatric: Reports: No Symptoms - Patient Data Vitals - Most Recent: Last Vital Signs Temp 97.4 F 04/30/19 09:38 Pulse 60 04/30/19 10:22 Resp 18 04/30/19 09:38 BP 142/73 H 04/30/19 10:22 Pulse Ox 98 04/30/19 09:38 Weight - Most Recent: 150 lb 6.4 oz I&O - Last 24 hours: Intake & Output 04/29/19 04/30/19 04/30/19 22:59 06:59 14:59 Intake Total 320 1478 Output Total 1400 550 400 Balance -1080 928 -400 Lab Results - Last 24 hrs: Laboratory Results - last 24 hr 04/29/19 04/29/19 04/29/19 Range/Units 13:57 13:57 13:57 WBC 6.88 (3.98-10.04) K/mm3 RBC 4.34 (3.98-5.22) M/mm3 Hgb 13.6 (11.2-15.7) gm/L Hct 41.1 (34.1-44.9) % MCV 94.7 D (79.4-94.8) fl MCH 31.3 (25.6-32.2) pg MCHC 33.1 (32.2-35.5) g/dl RDW Std Deviation 42.1 (36.4-46.3) fL Plt Count 179 L (182-369) K/mm3 MPV 10.9 (9.4-12.3) fl Neut % (Auto) 60.0 (34.0-71.1) % Lymph % (Auto) 27.6 (19.3-51.7) % [place] % (Auto) 10.0 (4.7-12.5) % Eos % (Auto) 1.7 (0.7-5.8) Baso % (Auto) 0.6 (0.1-1.2) % Neut # (Auto) 4.12 (1.56-6.13) K/mm3 Lymph # (Auto) 1.90 (1.18-3.74) K/mm3 [place] # (Auto) 0.69 H (0.24-0.36) K/mm3 Eos # (Auto) 0.12 (0.04-0.36) K/mm3 Baso # (Auto) 0.04 (0.01-0.08) K/mm3 PT (9.5-12.1) SECONDS INR Sodium 139 (136-145) mEq/L Potassium 3.1 L (3.5-5.1) mEq/L Chloride 101 (98-107) mEq/L Carbon Dioxide 24 (21-32) mEq/L Anion Gap 17.1 H (5-15) BUN 22 H (7-18) mg/dL Creatinine 1.2 H (0.55-1.02) mg/dL Est Cr Clr Drug Dosing 28.59 mL/min Estimated GFR (MDRD) 43 (>60) mL/min BUN/Creatinine Ratio 18.3 H (14-18) Glucose 192 H (83-115) mg/dL POC Glucose (83-110) mg/dL Hemoglobin A1c (4.50-6.20) % Calcium 9.1 (8.5-10.1) mg/dL Magnesium (1.8-2.4) mg/dl Total Bilirubin 0.4 (0.2-1.0) mg/dL AST 26 (15-37) U/L ALT 33 (14-59) U/L Alkaline Phosphatase 60 (46-116) U/L Troponin I 0.022 (0.00-0.056) ng/mL NT-Pro-B Natriuret Pep 580 H (0-450) pg/mL Total Protein 6.4 (6.4-8.2) g/dl Albumin 3.4 (3.4-5.0) g/dl Globulin 3.0 gm/dL Albumin/Globulin Ratio 1.1 (1-2) 04/29/19 04/29/19 04/29/19 Range/Units 13:57 13:57 18:16 WBC (3.98-10.04) K/mm3 RBC (3.98-5.22) M/mm3 Hgb (11.2-15.7) gm/L Hct (34.1-44.9) % MCV (79.4-94.8) fl MCH (25.6-32.2) pg MCHC (32.2-35.5) g/dl RDW Std Deviation (36.4-46.3) fL Plt Count (182-369) K/mm3 MPV (9.4-12.3) fl Neut % (Auto) (34.0-71.1) % Lymph % (Auto) (19.3-51.7) % [place] % (Auto) (4.7-12.5) % Eos % (Auto) (0.7-5.8) Baso % (Auto) (0.1-1.2) % Neut # (Auto) (1.56-6.13) K/mm3 Lymph # (Auto) (1.18-3.74) K/mm3 [place] # (Auto) (0.24-0.36) K/mm3 Eos # (Auto) (0.04-0.36) K/mm3 Baso # (Auto) (0.01-0.08) K/mm3 PT 15.9 H (9.5-12.1) SECONDS INR 1.47 Sodium (136-145) mEq/L Potassium (3.5-5.1) mEq/L Chloride (98-107) mEq/L Carbon Dioxide (21-32) mEq/L Anion Gap (5-15) BUN (7-18) mg/dL Creatinine (0.55-1.02) mg/dL Est Cr Clr Drug Dosing mL/min Estimated GFR (MDRD) (>60) mL/min BUN/Creatinine Ratio (14-18) Glucose (83-115) mg/dL POC Glucose 118 H (83-110) mg/dL Hemoglobin A1c (4.50-6.20) % Calcium (8.5-10.1) mg/dL Magnesium 2.0 (1.8-2.4) mg/dl Total Bilirubin (0.2-1.0) mg/dL AST (15-37) U/L ALT (14-59) U/L Alkaline Phosphatase (46-116) U/L Troponin I (0.00-0.056) ng/mL NT-Pro-B Natriuret Pep (0-450) pg/mL Total Protein (6.4-8.2) g/dl Albumin (3.4-5.0) g/dl Globulin gm/dL Albumin/Globulin Ratio (1-2) 04/30/19 04/30/19 04/30/19 Range/Units 05:40 05:40 05:40 WBC (3.98-10.04) K/mm3 RBC (3.98-5.22) M/mm3 Hgb (11.2-15.7) gm/L Hct (34.1-44.9) % MCV (79.4-94.8) fl MCH (25.6-32.2) pg MCHC (32.2-35.5) g/dl RDW Std Deviation (36.4-46.3) fL Plt Count (182-369) K/mm3 MPV (9.4-12.3) fl Neut % (Auto) (34.0-71.1) % Lymph % (Auto) (19.3-51.7) % [place] % (Auto) (4.7-12.5) % Eos % (Auto) (0.7-5.8) Baso % (Auto) (0.1-1.2) % Neut # (Auto) (1.56-6.13) K/mm3 Lymph # (Auto) (1.18-3.74) K/mm3 [place] # (Auto) (0.24-0.36) K/mm3 Eos # (Auto) (0.04-0.36) K/mm3 Baso # (Auto) (0.01-0.08) K/mm3 PT 17.0 H (9.5-12.1) SECONDS INR 1.57 Sodium 142 (136-145) mEq/L Potassium 4.1 (3.5-5.1) mEq/L Chloride 109 H (98-107) mEq/L Carbon Dioxide 24 (21-32) mEq/L Anion Gap 13.1 (5-15) BUN 23 H (7-18) mg/dL Creatinine 0.8 (0.55-1.02) mg/dL Est Cr Clr Drug Dosing 42.88 mL/min Estimated GFR (MDRD) > 60 (>60) mL/min BUN/Creatinine Ratio 28.8 H (14-18) Glucose 90 (83-115) mg/dL POC Glucose (83-110) mg/dL Hemoglobin A1c 5.80 (4.50-6.20) % Calcium 8.6 (8.5-10.1) mg/dL Magnesium (1.8-2.4) mg/dl Total Bilirubin (0.2-1.0) mg/dL AST (15-37) U/L ALT (14-59) U/L Alkaline Phosphatase (46-116) U/L Troponin I (0.00-0.056) ng/mL NT-Pro-B Natriuret Pep (0-450) pg/mL Total Protein (6.4-8.2) g/dl Albumin (3.4-5.0) g/dl Globulin gm/dL Albumin/Globulin Ratio (1-2) Med Orders - Current: Current Medications Acetaminophen (Tylenol) 650 mg PO Q4H PRN PRN Reason: Pain (Mild 1-3)/fever Diltiazem HCl (Cardizem Cd) 120 mg PO DAILY [facility] Last Admin: 04/30/19 10:22 Dose: 120 mg Enoxaparin Sodium (Lovenox) 40 mg SUBCUT Q24H MARANDA Furosemide (Lasix) 40 mg PO BIDDIURETIC MARANDA Lisinopril (Prinivil) 5 mg PO DAILY [facility] Last Admin: 04/30/19 10:20 Dose: 5 mg Metoprolol Succinate (Toprol Xl) 50 mg PO BID MARANDA Last Admin: 04/30/19 10:22 Dose: 50 mg [place] Thyroid 30 Mg (Own Med) 0 mg PO DAILY [facility] Last Admin: 04/30/19 10:26 Dose: 30 mg Potassium Chloride (Klor-Con M20) 20 meq PO DAILY [facility] Last Admin: 04/30/19 10:22 Dose: 20 meq Sodium Chloride (Saline Flush) 10 ml FLUSH ASDIRECTED PRN PRN Reason: Keep Vein Open Spironolactone (Aldactone) 25 mg PO DAILY [facility] Last Admin: 04/30/19 10:23 Dose: 25 mg Warfarin Sodium (Coumadin) 4 mg PO QPM [facility] Discontinued Medications Diltiazem HCl (Cardizem) 10 mg IVPUSH ONETIME ONE Stop: 04/29/19 14:16 Last Admin: 04/29/19 14:20 Dose: 5 mg Diltiazem HCl (Cardizem) 2.5 mg IVPUSH ONETIME ONE Stop: 04/29/19 14:44 Last Admin: 04/29/19 14:46 Dose: 2.5 mg Diltiazem HCl (Cardizem) 2.5 mg IVPUSH ONETIME ONE Stop: 04/29/19 14:47 Last Admin: 04/29/19 14:56 Dose: 2.5 mg Diltiazem HCl (Cardizem Cd) 120 mg PO ONETIME ONE Stop: 04/29/19 21:01 Last Admin: 04/29/19 22:08 Dose: 120 mg Enoxaparin Sodium (Lovenox) 30 mg SUBCUT DAILY [facility] Last Admin: 04/29/19 18:14 Dose: 30 mg Diltiazem HCl 125 mg/ Sodium (Chloride) 125 mls @ 5 mls/hr IV TITRATE MARANDA; Protocol Last Titration: 04/29/19 19:01 Dose: 0 mg/hr, 0 mls/hr Sodium Chloride (Normal Saline) 1,000 mls @ 75 mls/hr IV ASDIRECTED [facility] Last Admin: 04/30/19 04:52 Dose: 75 mls/hr Potassium Chloride 10 meq/ (Premix) 100 mls @ 100 mls/hr IV Q1H [facility] Stop: 04/29/19 21:44 Last Admin: 04/29/19 18:02 Dose: Not Given Potassium Chloride 10 meq/ (Premix) 100 mls @ 100 mls/hr IV Q1H [facility] Stop: 04/29/19 19:59 Last Admin: 04/29/19 19:15 Dose: 100 mls/hr Lisinopril (Prinivil) 5 mg PO DAILY [facility] Lisinopril (Prinivil) 10 mg PO DAILY [facility] Last Admin: 04/30/19 10:28 Dose: Not Given Metoprolol Succinate (Toprol Xl) 100 mg PO DAILY [facility] Last Admin: 04/30/19 10:28 Dose: Not Given Metoprolol Succinate (Toprol Xl) 50 mg PO BEDTIME [facility] Last Admin: 04/29/19 21:17 Dose: Not Given Potassium Chloride (Klor-Con M20) 40 meq PO ONETIME ONE Stop: 04/29/19 15:31 Last Admin: 04/29/19 15:45 Dose: 40 meq Potassium Chloride (Klor-Con M20) 20 meq PO BID [facility] Last Admin: 04/30/19 10:28 Dose: Not Given Potassium Chloride (Klor-Con M20) 20 meq PO ONETIME ONE Stop: 04/29/19 17:44 Last Admin: 04/29/19 18:23 Dose: 20 meq Sodium Chloride (Saline Flush) 10 ml FLUSH ASDIRECTED PRN PRN Reason: Keep Vein Open Last Admin: 04/29/19 14:20 Dose: 10 ml Warfarin Sodium (Coumadin) 4 mg PO DAILY@1800 [facility] Warfarin Sodium (Coumadin) 6 mg PO ONETIME ONE Stop: 04/29/19 18:46 Last Admin: 04/29/19 19:10 Dose: Not Given Warfarin Sodium (Coumadin) 4 mg PO ONETIME ONE Stop: 04/29/19 19:31 Last Admin: 04/29/19 19:10 Dose: 4 mg Warfarin Sodium (Coumadin) 2 mg PO ONETIME ONE Stop: 04/29/19 19:31 Last Admin: 04/29/19 19:10 Dose: 2 mg - Exam Quality Assessment: Reports: DVT Prophylaxis General: Reports: Alert, Oriented, Cooperative, No Acute Distress HEENT: Reports: Pupils Equal, Pupils Reactive, EOMI, Mucous Membr. Moist/[place] Neck: Reports: Supple, Trachea Midline, No JVD Lungs: Reports: Clear to Auscultation, Normal Respiratory Effort Cardiovascular: Reports: Regular Rate, Regular Rhythm GI/Abdominal Exam: Normal Bowel Sounds, Soft, Non-Tender, No Distention, No Abnormal Bruit (Female) Exam: Deferred Rectal (Female) Exam: Deferred Back Exam: Reports: Normal Inspection, Full Range of Motion Extremities: Normal Inspection, Normal Range of Motion, Non-Tender, Normal Capillary Refill, Pedal Edema (Trace ) Skin: Reports: Warm, Dry, Intact Neurological: Reports: No New Focal Deficit Psy/Mental Status: Reports: Alert, Normal Affect, Normal Mood
[2019-04-30] MEDS ORDERED: Furosemide 40 MG Tab PO SCH (14:00)
[2019-04-30 14:19] VITALS: BP 142/58
[2019-04-30] MEDS ORDERED: Enoxaparin 40 MG/0.4 ML Syringe SUBCUT SCH (18:00)
[2019-04-30] MEDS ORDERED: Warfarin 4 MG Tab PO SCH ×2 (18:00)
--- NOTE | 2019-05-01 09:36 | CR ---
Chest: Portable view of the chest was obtained. Comparison: Prior chest x-ray of 04/03/19. Heart size is slightly enlarged but accentuated from portable technique. Tortuous thoracic aorta is seen. Pulmonary vessels may be minimally increased. Lungs otherwise are clear. Left shoulder prosthesis is noted. Bony structures are osteopenic. Impression: 1. Difficult to exclude mild pulmonary vascular congestion. 2. Other incidental findings. Diagnostic code #3
== END 2019-04-30 15:30 | disposition home or self-care (01) | DRG 310 ==
LOC: JD.ED 13:49 → JD.ICU 16:03 → UNDOADMOB 16:12 → INTOOBSV 16:12 → JD.ICU 16:12 → OBSVTOIN 16:43
PROVIDERS: ADMIT Pediatrics; ATTEND Pediatrics
DX: I48.91 Unspecified atrial fibrillation (principal); Z88.5 Allergy status to narcotic agent; Z91.013 Allergy to seafood; Z88.8 Allergy status to other drugs, medicaments and biological substances; Z79.01 Long term (current) use of anticoagulants; E87.6 Hypokalemia; I10 Essential (primary) hypertension; Z79.899 Other long term (current) drug therapy; E11.9 Type 2 diabetes mellitus without complications; R79.1 Abnormal coagulation profile; I42.9 Cardiomyopathy, unspecified; M19.91 Primary osteoarthritis, unspecified site; I25.10 Atherosclerotic heart disease of native coronary artery without angina pectoris; I11.0 Hypertensive heart disease with heart failure; I50.9 Heart failure, unspecified; E78.00 Pure hypercholesterolemia, unspecified; Z86.010 Personal history of colon polyps; K90.0 Celiac disease; M19.90 Unspecified osteoarthritis, unspecified site; Z90.49 Acquired absence of other specified parts of digestive tract; Z89.9 Acquired absence of limb, unspecified; Z86.73 Personal history of transient ischemic attack (TIA), and cerebral infarction without residual deficits; E03.9 Hypothyroidism, unspecified; Z95.5 Presence of coronary angioplasty implant and graft; Z96.659 Presence of unspecified artificial knee joint; Z96.619 Presence of unspecified artificial shoulder joint
CPT/HCPCS: 36415; 71045; 80053; 83735; 83880; 84484; 85025; 85610; 93005; 96365; 96376; 99285; A9270; J3490 ×4; J7030; J7040; 80048; 82962; 83036; 93010; 99284; J1650; J3480

== ENCOUNTER 2019-07-08 19:23 | Emergency (ER) | payer MEDICARE, OTHER ==
[2019-07-08 19:33] VITALS: BP 157/73
--- NOTE | 2019-07-08 19:52 | EDM.PDOC ---
ED HPI GENERAL MEDICAL PROBLEM - General Chief Complaint: Chest Pain Stated Complaint: BACK PAIN, CHEST DISCOMFORT Time Seen by Provider: 07/08/19 19:33 Source of Information: Reports: Patient History Limitations: Reports: No Limitations - History of Present Illness INITIAL COMMENTS - FREE TEXT/NARRATIVE: The patient states that she has been experiencing chest and back pain on and off for the past 4 months. When present, her symptoms last from 15-20 minutes up to an hour, and recur about once or twice a week. She is reporting a severe pressure behind her left breast, as well as pain, a sensation similar to being punched, felt between her scapula (although on exam, she actually localized the pain to her mid-thoracic vertebrae) that began around 16:30 this afternoon. She has not identified any modifiers; her symptoms can occur day or night, with rest or with exertion. She denies any associated nausea, dyspnea, diaphoresis, or sense of impending doom, although she notes that she chronically has dyspnea with even minimal exertion, that has not changed. Her most recent episode was about 5 days ago, lasting about 45 minutes to an hour. She states that she discussed her symptoms with her PCP when she saw him on a routine visit but 2 weeks ago. He instructed her that if it continues, that she should go to the ED. In the meantime, he was going to call her Cardiology contact, to see if she should have a cardiac stress test, however, the patient has not heard back either way. She states that her last cardiac stress test was about 1.5 years ago. The patient states that she had similar symptoms, although worse, around 2010. She states that the emergency physicians at that time somehow felt that her symptoms were cardiac, although she states that she was not diagnosed with a KS. She states that she was transferred to [facility], where she went for a coronary angiogram and received 3 coronary stents. The patient denies recent illness, such as fever, chills, dyspnea at rest, palpitations, nausea, vomiting, constipation, diarrhea, abdominal pain, recent weight gain or weight loss, recent bloody bowel movements or black bowel movements, recent urinary symptoms, joint aches, headaches, or rash. The patient states that she has been experiencing an infrequent cough that her PCP thinks may be due to the lisinopril that she is on. At her last visit, a new medicine, whose name she cannot recall, was introduced, with the intention of getting off the lisinopril, however, she states that she is still on the lisinopril. The patient is on Coumadin for paroxysmal atrial fibrillation. The patient's PCP is Dr. Geoffrey Tidwell. Her Cardiology contact is JOE Rendon. Left Chest Pain Score (Numeric/FACES): 5 - Related Data Allergies Allergy/AdvReac Type Severity Reaction Status Date / Time morphine Allergy Anaphylactic Verified 07/08/19 19:30 Shock oxycodone Allergy Anaphylactic Verified 07/08/19 19:30 Shock codeine AdvReac Chest Pain Verified 07/08/19 19:30 nitroglycerin AdvReac Change Verified 07/08/19 19:30 [From Nitroglyn] Mental Status tramadol AdvReac Insomnia Verified 07/08/19 19:30 shellfish AdvReac Tachycardia Uncoded 07/08/19 19:30 Home Meds: Home Meds Spironolactone [Aldactone] 25 mg PO DAILY 11/20/14 [History] Thyroid [[place] Thyroid] 30 mg PO DAILY 11/20/14 [History] Celecoxib [CeleBREX] 100 mg PO BID PRN 04/29/19 [History] Lisinopril 5 mg PO DAILY 04/29/19 [History] Diltiazem [Cardizem CD] 120 mg PO DAILY #30 cap.cd 04/30/19 [Rx] Furosemide [Lasix] 40 mg PO BIDDIURETIC #60 tablet 04/30/19 [Rx] Metoprolol Succinate [Toprol XL 50mg] 50 mg PO BID #1 tab.er 04/30/19 [Rx] Potassium Chloride [Klor-Con M20] 20 meq PO DAILY #3 tab.er 04/30/19 [Rx] Warfarin [Coumadin] 4 mg PO QPM #1 tablet 04/30/19 [Rx] Past Medical History HEENT History: Reports: Impaired Vision Other HEENT History: Wears glasses Cardiovascular History: Reports: Afib (paroxysmal), CAD, Cardiomyopathy ( hypertrophic), Heart Failure, High Cholesterol, Hypertension Gastrointestinal History: Reports: Celiac Disease, Colon Polyp, Diverticulosis, PUD Genitourinary History: Reports: Renal Calculus, Urinary Incontinence (stress incontinence) 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: Musculoskeletal History: Reports: Osteoarthritis Neurological History: Reports: TIA, Other (See Below) (Essential tremor) Endocrine/Metabolic History: Reports: Hypothyroidism, Osteopenia Hematologic History: Reports: Anticoagulation Therapy (Coumadin) - Past Surgical History HEENT Surgical History: Reports: Oral Surgery (edentulous), Tonsillectomy Cardiovascular Surgical History: Reports: Coronary Artery Stent (x 3, around 2011), Other (See Below) (Coronary angiogram x 2) GI Surgical History: Reports: Cholecystectomy (1998), Colonoscopy (x 3), EGD (x 2) Female Surgical History: Reports: Other (See Below) (Repair uterine prolapse) Musculoskeletal Surgical History: Reports: Amputation (partial, 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 ED EXAM, GENERAL - Physical Exam Exam: See Below Exam Limited By: No Limitations General Appearance: Alert, WD/WN, No Apparent Distress Eye Exam: Bilateral Eye: EOMI, Nystagmus Ears: Normal External Exam, Hearing Grossly Normal Nose: Normal Inspection Throat/Mouth: Normal Inspection, Normal Lips, Normal Voice, No Airway Compromise Head: Atraumatic, Normocephalic Neck: Normal Inspection, Full Range of Motion Respiratory/Chest: No Respiratory Distress, Lungs Clear, Normal Breath Sounds, No Accessory Muscle Use, Chest Non-Tender (including to the left breast area) Cardiovascular: Normal Peripheral Pulses, Regular Rate, Rhythm, No Gallop, No JVD, No Murmur, No Rub Peripheral Pulses: 4+: Radial (L), Radial (R) GI/Abdominal: Normal Bowel Sounds, Soft, Non-Tender, No Organomegaly, No Distention, No Abnormal Bruit, No Mass (Female) Exam: Deferred Rectal (Female) Exam: Deferred Back Exam: Normal Inspection, Full Range of Motion, Other (The patient localizes her pain to a relatively small area over the mid thoracic vertebrae. No visible abnormality to this area, such as swelling, erythema, ecchymosis, or abrasion, and the area is completely nontender.) Extremities: Normal Inspection, Normal Range of Motion, No Pedal Edema, Normal Capillary Refill, Other (1+ pitting pretibial edema bilaterally) Neurological: Alert, Oriented, Normal Cognition, No Motor/Sensory Deficits Psychiatric: Normal Affect Skin Exam: Warm, Dry, Intact, Normal Color, No Rash EKG INTERPRETATION EKG Date: 07/08/19 Time: 19:37 Rhythm: Other (Sinus bradycardia) Rate (Beats/Min): 58 [place]: Normal P-Wave: Present (1 AVB) QRS: Normal ST-T: Elevated (A [address] elevation in the anterolateral leads. No T wave inversions, and no recent changes.) QT: Prolonged (QTc 483 ms) Comparison: Change From Previous EKG (ST elevations were not seen on 04/29/2019) Course - Vital Signs Last Recorded V/S: Last Vital Signs Temp Pulse 60 07/08/19 19:30 Resp 15 07/08/19 19:30 BP 157/73 H 07/08/19 19:30 Pulse Ox 98 07/08/19 19:30 - Orders/Labs/Meds Orders: Active Orders 24 hr Category Date Time Status EKG Documentation Completion [RC] STAT Care 07/08/19 19:49 Active Chest 2V [CR] Stat Exams 07/08/19 19:49 Taken Labs: Laboratory Tests 07/08/19 07/08/19 07/08/19 Range/Units 19:52 19:52 19:52 WBC (3.98-10.04) K/mm3 RBC (3.98-5.22) M/mm3 Hgb (11.2-15.7) gm/L Hct (34.1-44.9) % MCV (79.4-94.8) fl MCH (25.6-32.2) pg MCHC (32.2-35.5) g/dl RDW Std Deviation (36.4-46.3) fL Plt Count (182-369) K/mm3 MPV (9.4-12.3) fl Neut % (Auto) (34.0-71.1) % Lymph % (Auto) (19.3-51.7) % Bullock % (Auto) (4.7-12.5) % Eos % (Auto) (0.7-5.8) Baso % (Auto) (0.1-1.2) % Neut # (Auto) (1.56-6.13) K/mm3 Lymph # (Auto) (1.18-3.74) K/mm3 Bullock # (Auto) (0.24-0.36) K/mm3 Eos # (Auto) (0.04-0.36) K/mm3 Baso # (Auto) (0.01-0.08) K/mm3 PT 28.7 H D (9.7-12.0) SECONDS INR 2.79 APTT 39 H (22-31) SECONDS D-Dimer, Quantitative 0.24 (0.19-0.50) mg/L Sodium 142 (136-145) mEq/L Potassium 4.0 (3.5-5.1) mEq/L Chloride 105 (98-107) mEq/L Carbon Dioxide 28 (21-32) mEq/L Anion Gap 13.0 (5-15) BUN 23 H (7-18) mg/dL Creatinine 1.1 H (0.55-1.02) mg/dL Est Cr Clr Drug Dosing 29.75 mL/min Estimated GFR (MDRD) 48 (>60) mL/min BUN/Creatinine Ratio 20.9 H (14-18) Glucose 93 (83-115) mg/dL Calcium 8.6 (8.5-10.1) mg/dL Total Bilirubin 0.3 (0.2-1.0) mg/dL AST 28 (15-37) U/L ALT 14 (14-59) U/L Alkaline Phosphatase 57 (46-116) U/L Troponin I < 0.017 (0.00-0.056) ng/mL NT-Pro-B Natriuret Pep 382 (0-450) pg/mL Total Protein 6.5 (6.4-8.2) g/dl Albumin 3.4 (3.4-5.0) g/dl Globulin 3.1 gm/dL Albumin/Globulin Ratio 1.1 (1-2) 07/08/19 07/08/19 Range/Units 19:52 21:30 WBC 6.51 (3.98-10.04) K/mm3 RBC 4.36 (3.98-5.22) M/mm3 Hgb 13.6 (11.2-15.7) gm/L Hct 41.0 (34.1-44.9) % MCV 94.0 (79.4-94.8) fl MCH 31.2 (25.6-32.2) pg MCHC 33.2 (32.2-35.5) g/dl RDW Std Deviation 41.5 (36.4-46.3) fL Plt Count 196 (182-369) K/mm3 MPV 10.2 (9.4-12.3) fl Neut % (Auto) 53.2 (34.0-71.1) % Lymph % (Auto) 33.5 (19.3-51.7) % Bullock % (Auto) 9.7 (4.7-12.5) % Eos % (Auto) 2.9 (0.7-5.8) Baso % (Auto) 0.5 (0.1-1.2) % Neut # (Auto) 3.47 (1.56-6.13) K/mm3 Lymph # (Auto) 2.18 (1.18-3.74) K/mm3 Bullock # (Auto) 0.63 H (0.24-0.36) K/mm3 Eos # (Auto) 0.19 (0.04-0.36) K/mm3 Baso # (Auto) 0.03 (0.01-0.08) K/mm3 PT (9.7-12.0) SECONDS INR APTT (22-31) SECONDS D-Dimer, Quantitative (0.19-0.50) mg/L Sodium (136-145) mEq/L Potassium (3.5-5.1) mEq/L Chloride (98-107) mEq/L Carbon Dioxide (21-32) mEq/L Anion Gap (5-15) BUN (7-18) mg/dL Creatinine (0.55-1.02) mg/dL Est Cr Clr Drug Dosing mL/min Estimated GFR (MDRD) (>60) mL/min BUN/Creatinine Ratio (14-18) Glucose (83-115) mg/dL Calcium (8.5-10.1) mg/dL Total Bilirubin (0.2-1.0) mg/dL AST (15-37) U/L ALT (14-59) U/L Alkaline Phosphatase (46-116) U/L Troponin I < 0.017 (0.00-0.056) ng/mL NT-Pro-B Natriuret Pep (0-450) pg/mL Total Protein (6.4-8.2) g/dl Albumin (3.4-5.0) g/dl Globulin gm/dL Albumin/Globulin Ratio (1-2) - Re-Assessments/Exams Free Text/Narrative Re-Assessment/Exam: 07/08/19 19:51 The feature that is most concerning to me is that this presentation is the same as when the patient wound up receiving 3 coronary stents around 2010. As the patient tells it, there was something about her presentation that led the emergency physicians to conclude that her presentation was cardiac, even though , according to the patient, she did not suffer a KS. She states that she did not first have a stress test, rather, she states that she was transferred to [place], and went straight for a coronary angiogram, where 3 coronary stents were placed. Unfortunately, I do not have access to those medical records - they are too old. The patient's ECG demonstrates about a [address] elevation in the anterolateral leads, but with no T-wave inversions and no reciprocal changes. Ordinarily, this would not be concerning, as it looks like simple J-point elevation, however, these ST elevations were not seen on her prior ECG dated . I have ordered a workup that includes blood work and a chest x-ray. It is my intention to then discuss her results, whatever they may be, with a Study Director. 07/08/19 20:25 2-view chest radiograph reviewed. There is mild cardiomegaly, but no pulmonary vascular congestion or pleural effusions to suggest decompensated CHF. The cardiac silhouette is otherwise unremarkable. No focal infiltrate. No pneumothorax. Kyphotic spine incidentally noted. Surgical clips in the right upper quadrant, consistent with prior cholecystectomy, noted. Left shoulder reverse arthroplasty noted. 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 Formal read per the Radiologist pending. 07/08/19 20:41 The patient CBC is completely normal. Her CMP is remarkable for a BUN/Cr of 23/1.1, with remainder of the CMP being normal. Her troponin is undetectably low. Her d-dimer is within normal limits at 0.24. Her BNP is within normal limits at 382. Her INR is therapeutic at 2.79. The patient's BUN/Cr was 23/0.8 on 04/30/2019. 07/08/19 21:01 [facility] was contacted at 20:41. Case discussed with Jacey at [facility] at 20:45. Case then discussed with Dr. Flores, Study Director youth liaison officer at [facility] , at 20:49. Notwithstanding the ECG changes, given the patient's 4 month history , without evolution of symptoms, and a negative troponin, he does not feel that the patient needs to be transferred, or even admitted to the hospital. An outpatient stress test could be considered. Since the patient has not heard back from her PCP or Cardiology contact, I will discuss the case with our Hospitalist to see if he would be willing to put the patient in for serial cardiac enzymes and a cardiac stress test. 07/08/19 21:[address] Mehta at 21:05. Unfortunately, because of the , cardiac stress tests will not be available until Wednesday, 2018. He suggested repeating a troponin if it had been less than 3 hours since the onset of her symptoms, however, the patient's symptoms began around 16:30, and the troponin was drawn at 19:52, therefore it should have been elevated already if cardiac injury occurred. Additionally, the patient stated that her last episode was 5 days ago, therefore cardiac injury from then should still have been elevated today, since elevated upon he can persist for about 10 days. 07/08/19 21:23 The above situation was discussed with the patient and her (now present) . As above, I cannot transfer the patient to [place], and I cannot place her into observation here, however, I can draw a second cardiac enzyme, if she desired. She said that she would, therefore I have ordered a second troponin. I am anticipating that it will be negative, for the reasons detailed above, and if so, the patient can then be discharged home, to arrange for an outpatient stress test through her PCP. The patient is agreeable with this plan. 07/08/19 22:06 The patient's repeat troponin is undetectably low. 07/08/19 22:11 Test results discussed with the patient and her . Questions were answered. I will discharge the patient home, to follow-up with her PCP this coming 07/11/2019, to arrange for an outpatient cardiac stress test. Departure - Departure Time of Disposition: 22:11 Disposition: Home, Self-Care 01 Condition: Good Clinical Impression: Chest pain of uncertain etiology, Back pain Referrals: Geoffrey Tidwell MD [Primary Care Provider] - Hannah Felipe PA-C [Ordering Only Provider] - Forms: ED Department Discharge Additional Instructions: You were seen in the emergency room for recurrent left-sided chest pain and mid- back pain. Workup in the ER included blood work, a chest x-ray, and an ECG. Your ECG showed a small change from a prior ECG, however, the remainder of your workup was unremarkable. You have not suffered a heart attack. You do not have a blood clot in your lungs. Your case was discussed with a Study Director at [facility], as well as with the Hospitalist at our hospital, and neither felt that you needed to be admitted to the hospital. We recommend that you follow-up with your PCP, Dr. Geoffrey Tidwell, this coming 07/11/2019, to arrange for an outpatient cardiac stress test. If any other problems, please do not hesitate to return to the ER. - My Orders Last 24 Hours: My Active Orders 07/08/19 19:49 EKG Documentation Completion [RC] STAT Chest 2V [CR] Stat - Assessment/Plan Last 24 Hours: My Active Orders 07/08/19 19:49 EKG Documentation Completion [RC] STAT Chest 2V [CR] Stat
--- NOTE | 2019-07-09 12:23 | CR ---
Chest: Two views of the chest were obtained. Comparison: Prior chest x-ray of 04/29/19. Heart size is mildly enlarged. Tortuous thoracic aorta is noted. Left shoulder prosthesis is seen. Lungs are clear with no acute parenchymal change. Diaphragms are flattened on the lateral view compatible with emphysematous change. Coronary artery stent is present. Scoliosis is noted within the spine. Surgical clips are noted from prior cholecystectomy. Impression: 1. Slight cardiomegaly. 2. Emphysematous change. 3. Other findings believed to be incidental. Nothing acute is seen. Diagnostic code #2
== END 2019-07-08 22:23 | disposition home or self-care (01) ==
LOC: JD.ED 19:23
DX: R07.9 Chest pain, unspecified (principal); M54.6 Pain in thoracic spine; I11.0 Hypertensive heart disease with heart failure; I50.9 Heart failure, unspecified; M19.90 Unspecified osteoarthritis, unspecified site; E03.9 Hypothyroidism, unspecified; Z88.5 Allergy status to narcotic agent; Z88.6 Allergy status to analgesic agent; Z88.8 Allergy status to other drugs, medicaments and biological substances; Z91.013 Allergy to seafood; Z79.01 Long term (current) use of anticoagulants; Z79.899 Other long term (current) drug therapy; Z86.73 Personal history of transient ischemic attack (TIA), and cerebral infarction without residual deficits
CPT/HCPCS: 36415; 71046; 71046-26; 80053; 83880; 84484; 85025; 85379; 85610; 85730; 93005; 99285-25

== ENCOUNTER 2019-08-17 08:56 | Emergency (ER) | payer MEDICARE, OTHER ==
--- NOTE | 2019-08-17 09:55 | EDM.PDOC ---
<Marshal Vu - Last Filed: 08/17/19 09:47> ED HPI GENERAL MEDICAL PROBLEM - General Chief Complaint: General Stated Complaint: POS OP MUSCLE SPASM,UPPER BODY PAIN Time Seen by Provider: 08/17/19 09:23 Source of Information: Reports: Patient History Limitations: Reports: No Limitations - History of Present Illness INITIAL COMMENTS - FREE TEXT/NARRATIVE: Pt is 84 yo female presenting to ED with complaint of lower extremity spasms and chest pain. Pt states that 10 days ago she had a stent placed. Since then she has had about 3 episodes of pain under her left breast radiating back into her shoulder blade. She states this feels similar to the pain she was having when she originally found out she would need heart stents. Pt states this morning she had 3 episodes of lower extremity spasms ("johnny horse"). One in her right leg and two in her left leg. THese episodes lasted 10- 15 minutes each. She states she felt dizzy and needed to go back to bed. THis is when she decided to call her PCP, Dr. Tidwell, who told her to be seen in ED. Pt states she has been eating and drinking well since her procedure, and her activity has been normal. She is usually very active at home. She has had no substernal chest pain, headache, lightheadedness, swelling. She reports some increased constipation. Pt is on coumadin, plavix, and lasix. Onset: Today, Sudden Duration: Minutes: Location: Reports: Lower Extremity, Left, Lower Extremity, Right Quality: Reports: Sharp Severity: Severe Associated Symptoms: Reports: Other (dizziness) Left Breast Pain Score (Numeric/FACES): 2 - Related Data Allergies Allergy/AdvReac Type Severity Reaction Status Date / Time morphine Allergy Anaphylactic Verified 08/17/19 09:15 Shock oxycodone Allergy Anaphylactic Verified 08/17/19 09:15 Shock codeine AdvReac Chest Pain Verified 08/17/19 09:15 nitroglycerin AdvReac Change Verified 08/17/19 09:15 [From Nitroglyn] Mental Status tramadol AdvReac Insomnia Verified 08/17/19 09:15 shellfish AdvReac Tachycardia Uncoded 07/08/19 19:30 Home Meds: Home Meds Spironolactone [Aldactone] 25 mg PO DAILY 01/13/15 [History] Thyroid [[place] Thyroid] 30 mg PO DAILY 11/20/14 [History] Celecoxib [CeleBREX] 100 mg PO BID PRN 04/29/19 [History] Lisinopril 5 mg PO DAILY 04/29/19 [History] Diltiazem [Cardizem CD] 120 mg PO DAILY #30 cap.cd 04/30/19 [Rx] Furosemide [Lasix] 40 mg PO BIDDIURETIC #60 tablet 04/30/19 [Rx] Metoprolol Succinate [Toprol XL 50mg] 50 mg PO BID #1 tab.er 04/30/19 [Rx] Potassium Chloride [Klor-Con M20] 20 meq PO DAILY #3 tab.er 04/30/19 [Rx] Warfarin [Coumadin] 4 mg PO QPM #1 tablet 04/30/19 [Rx] Clopidogrel [Plavix] 75 mg PO DAILY 08/17/19 [History] Past Medical History HEENT History: Reports: Impaired Vision Other HEENT History: Wears glasses Cardiovascular History: Reports: Afib, CAD, Cardiomyopathy, Heart Failure, High Cholesterol, Hypertension Other Cardiovascular History: growth in LL chamber. hypertrophic cardiomyopathy Gastrointestinal History: Reports: Celiac Disease, Colon Polyp, Diverticulosis, PUD Other Gastrointestinal History: celiac disease Genitourinary History: Reports: Renal Calculus, Urinary Incontinence EMPLOYMENT ADVISOR History: Reports: Musculoskeletal History: Reports: Osteoarthritis Neurological History: Reports: TIA, Other (See Below) Endocrine/Metabolic History: Reports: Hypothyroidism, Osteopenia Hematologic History: Reports: Anticoagulation Therapy - Past Surgical History Head Surgeries/Procedures: Reports: None HEENT Surgical History: Reports: Oral Surgery, Tonsillectomy Cardiovascular Surgical History: Reports: Coronary Artery Stent, Other (See Below) GI Surgical History: Reports: Cholecystectomy, Colonoscopy, EGD Female Surgical History: Reports: Other (See Below) Musculoskeletal Surgical History: Reports: Amputation, Knee Replacement, Shoulder Replacement Social & Family History - Family History Family Medical History: Noncontributory - Tobacco Use Smoking Status *Q: Never Smoker - Caffeine Use Caffeine Use: Reports: Coffee, Tea - Recreational Drug Use Recreational Drug Use: No - Living Situation & Occupation Living situation: Reports: , with Spouse Occupation: Retired ED ROS GENERAL - Review of Systems Review Of Systems: See Below Constitutional: Reports: No Symptoms HEENT: Reports: No Symptoms Respiratory: Reports: No Symptoms Cardiovascular: Reports: No Symptoms Endocrine: Reports: No Symptoms GI/Abdominal: Reports: No Symptoms : Reports: No Symptoms Musculoskeletal: Reports: Leg Pain Skin: Reports: No Symptoms Neurological: Reports: No Symptoms Psychiatric: Reports: No Symptoms Hematologic/Lymphatic: Reports: No Symptoms Immunologic: Reports: No Symptoms ED EXAM, GENERAL - Physical Exam Exam: See Below Exam Limited By: No Limitations General Appearance: Alert, No Apparent Distress Eye Exam: Bilateral Eye: Normal Inspection Ears: Normal External Exam, Hearing Grossly Normal Nose: Normal Inspection Throat/Mouth: Normal Inspection, Normal Lips, Normal Teeth, Normal Voice, No Airway Compromise Head: Atraumatic, Normocephalic Neck: Normal Inspection, Supple, Non-Tender, Full Range of Motion Cardiovascular: Regular Rate, Rhythm, No Edema, No JVD, No Rub, Systolic Murmur Peripheral Pulses: 2+: Dorsalis Pedis (L), Dorsalis Pedis (R) GI/Abdominal: Normal Bowel Sounds, Soft, Non-Tender, No Organomegaly, No Distention, No Mass (Female) Exam: Deferred Rectal (Female) Exam: Deferred Back Exam: Normal Inspection, Full Range of Motion Extremities: Normal Inspection, No Pedal Edema, Leg Pain Neurological: Alert, Oriented, CN II-XII Intact, Normal Cognition, No Motor/ Sensory Deficits Psychiatric: Normal Affect, Normal Mood Skin Exam: Warm, Dry, Intact, Normal Color, No Rash Lymphatic: No Adenopathy Course - Vital Signs Last Recorded V/S: Last Vital Signs Temp 98.0 F 08/17/19 09:07 Pulse 56 L 08/17/19 09:07 Resp 16 08/17/19 09:07 BP 134/73 08/17/19 09:07 Pulse Ox 95 08/17/19 09:07 - Orders/Labs/Meds Orders: Active Orders 24 hr Category Date Time Status Cardiac Monitoring [RC] . DIRECTED Care 08/17/19 09:56 Active EKG Documentation Completion [RC] STAT Care 08/17/19 09:56 Active Peripheral IV Care [RC] . DIRECTED Care 08/17/19 09:56 Active TROPONIN I [CHEM] Stat Lab 08/17/19 12:56 Ordered Sodium Chloride 0.9% [Saline Flush] Med 08/17/19 09:56 Active 10 ml FLUSH ASDIRECTED PRN Peripheral IV Insertion Adult [OM.PC] Stat Oth 08/17/19 09:56 Ordered Medication Orders Sodium Chloride (Saline Flush) 10 ml FLUSH ASDIRECTED PRN PRN Reason: Keep Vein Open Labs: Laboratory Tests 08/17/19 08/17/19 Range/Units 10:15 10:15 WBC 5.54 (3.98-10.04) K/mm3 RBC 4.85 (3.98-5.22) M/mm3 Hgb 15.0 (11.2-15.7) gm/dl Hct 45.8 H (34.1-44.9) % MCV 94.4 (79.4-94.8) fl MCH 30.9 (25.6-32.2) pg MCHC 32.8 (32.2-35.5) g/dl RDW Std Deviation 43.0 (36.4-46.3) fL Plt Count 204 (182-369) K/mm3 MPV 9.6 (9.4-12.3) fl Neut % (Auto) 58.0 (34.0-71.1) % Lymph % (Auto) 28.3 (19.3-51.7) % [place] % (Auto) 11.2 (4.7-12.5) % Eos % (Auto) 2.0 (0.7-5.8) Baso % (Auto) 0.5 (0.1-1.2) % Neut # (Auto) 3.21 (1.56-6.13) K/mm3 Lymph # (Auto) 1.57 (1.18-3.74) K/mm3 [place] # (Auto) 0.62 H (0.24-0.36) K/mm3 Eos # (Auto) 0.11 (0.04-0.36) K/mm3 Baso # (Auto) 0.03 (0.01-0.08) K/mm3 Sodium 140 (136-145) mEq/L Potassium 3.6 (3.5-5.1) mEq/L Chloride 103 (98-107) mEq/L Carbon Dioxide 29 (21-32) mEq/L Anion Gap 11.6 (5-15) BUN 31 H (7-18) mg/dL Creatinine 1.1 H (0.55-1.02) mg/dL Est Cr Clr Drug Dosing 32.62 mL/min Estimated GFR (MDRD) 48 (>60) mL/min BUN/Creatinine Ratio 28.2 H (14-18) Glucose 135 H (83-115) mg/dL Calcium 9.6 (8.5-10.1) mg/dL Magnesium 2.0 (1.8-2.4) mg/dl Total Bilirubin 0.4 (0.2-1.0) mg/dL AST 19 (15-37) U/L ALT 28 (14-59) U/L Alkaline Phosphatase 58 (46-116) U/L Troponin I < 0.017 (0.00-0.056) ng/mL Total Protein 6.7 (6.4-8.2) g/dl Albumin 3.4 (3.4-5.0) g/dl Globulin 3.3 gm/dL Albumin/Globulin Ratio 1.0 (1-2) Meds: Medications Generic Name Dose Route Start Last Admin Trade Name Freq PRN Reason Stop Dose Admin Sodium Chloride 10 ml 08/17/19 09:56 Saline Flush FLUSH ASDIRECTED PRN Keep Vein Open - Re-Assessments/Exams Free Text/Narrative Re-Assessment/Exam: 08/17/19 10:04 Pt is 84 yo female with complaint of rib/back pain and lower extremity spasms. Will check CBC, CMP, magnesium, EKG. Departure - Departure Disposition: Home, Self-Care 01 Clinical Impression: Atypical chest pain, Leg cramps - Discharge Information Referrals: Geoffrey Tidwell MD [Primary Care Provider] - Forms: ED Department Discharge Additional Instructions: Follow up with your welder gas on Wednesday. Please return if you are worse. - Problem List Review Problem List Initiated/Reviewed/Updated: Yes - My Orders Last 24 Hours: My Active Orders 08/17/19 09:56 Cardiac Monitoring [RC] . DIRECTED EKG Documentation Completion [RC] STAT Peripheral IV Care [RC] . DIRECTED Sodium Chloride 0.9% [Saline Flush] 10 ml FLUSH ASDIRECTED PRN Peripheral IV Insertion Adult [OM.PC] Stat 08/17/19 12:56 TROPONIN I [CHEM] Stat - Assessment/Plan Last 24 Hours: My Active Orders 08/17/19 09:56 Cardiac Monitoring [RC] . DIRECTED EKG Documentation Completion [RC] STAT Peripheral IV Care [RC] . DIRECTED Sodium Chloride 0.9% [Saline Flush] 10 ml FLUSH ASDIRECTED PRN Peripheral IV Insertion Adult [OM.PC] Stat 08/17/19 12:56 TROPONIN I [CHEM] Stat <ReinaghazalGianlucaDarci - Last Filed: 08/17/19 13:00> Course - Re-Assessments/Exams Free Text/Narrative Re-Assessment/Exam: 08/17/19 12:57 I examined the patient myself and I agree with Marshal's assessment and plan. I ordered an IV saline lock, EKG, CXR and labs. Her EKG shows a sinus bradycardia with no acute changes and no change from prior. Her CXR shows nothing acute. Her CBC looks good. Her creatinine was elevated slightly at 1.1. Her glucose was 135. Her troponin was negative. She feels better. I will order a repeat troponin. I will discharge her home. She sees cardiology in [place] on Wednesday. Departure - Departure Time of Disposition: 13:00 Condition: Good - Discharge Information *PRESCRIPTION DRUG MONITORING PROGRAM REVIEWED*: No *COPY OF PRESCRIPTION DRUG MONITORING REPORT IN PATIENT KYLER: No
[2019-08-17] MEDS ORDERED: Sodium Chloride 0.9% 10 ML Syringe FLUSH PRN (09:56)
--- NOTE | 2019-08-17 11:03 | CR ---
Chest: PA and lateral views of the chest were obtained. Comparison: Prior chest x-ray of 07/08/19. Heart size at the upper limits of normal. Coronary artery calcification is seen. Tortuous thoracic aorta is seen. Scoliosis is noted within the spine with left shoulder prosthesis. Findings suspicious for chronic rotator cuff tear within the right shoulder. Scattered disc space narrowing is seen within the spine. Diaphragms are flattened on the lateral view compatible with emphysematous change. Surgical clips are seen from prior cholecystectomy. Impression: 1. Emphysematous change. 2. Other multiple findings as noted above which are nonacute. 3. Nothing acute is otherwise seen. Diagnostic code #2
[2019-08-17 13:39] VITALS: BP 152/84; PULSE 49
== END 2019-08-17 13:35 | disposition home or self-care (01) ==
LOC: JD.ED 08:56
DX: R07.89 Other chest pain (principal); R25.2 Cramp and spasm; I48.91 Unspecified atrial fibrillation; I25.10 Atherosclerotic heart disease of native coronary artery without angina pectoris; I11.0 Hypertensive heart disease with heart failure; I50.9 Heart failure, unspecified; E78.00 Pure hypercholesterolemia, unspecified; E03.9 Hypothyroidism, unspecified; Z79.01 Long term (current) use of anticoagulants; Z88.5 Allergy status to narcotic agent; Z88.8 Allergy status to other drugs, medicaments and biological substances; Z91.013 Allergy to seafood; Z79.899 Other long term (current) drug therapy; Z79.02 Long term (current) use of antithrombotics/antiplatelets; Z87.442 Personal history of urinary calculi
CPT/HCPCS: 36415; 71046; 71046-26; 80053; 83735; 84484; 85025; 93005; 93010; 99284; 99284-25

== ENCOUNTER 2019-09-10 08:05 | Emergency (ER) | payer MEDICARE, OTHER ==
--- NOTE | 2019-09-10 09:42 | EDM.PDOC ---
ED HPI GENERAL MEDICAL PROBLEM - General Chief Complaint: Cardiovascular Problem Stated Complaint: UNABLE TO WALK WITHOUT ASSISTANCE SHAKEY Time Seen by Provider: 09/10/19 08:35 Source of Information: Reports: Patient, RN Notes Reviewed - History of Present Illness INITIAL COMMENTS - FREE TEXT/NARRATIVE: [id number] female has been having difficulty with intermittent shortness of breath for the past 3 or 4 days. This has been primarily at night when trying to rest. She states her breathing is been better when she sits or stands up. She does not feel short of breath at this time. She states she's been feeling "dizzy and off balance intermittently for the last few nights as well. Again this is mainly at night when trying to go to the bathroom. She feels like her balance is off and she feels very "unsteady on her feet". There has been no focal weakness. No headache nausea or vomiting. Has had some mild intermittent chest discomfort that is not present at this time. She is concerned about low heart rate. She states sometimes her heart rate will be even down into the 40s according to her blood pressure unit. She states she typically does run low heart rate. She states her metoprolol was recently reduced from a full tablet in the morning to a half tablet morning and evening. Chest Pain Score (Numeric/FACES): 0 - Related Data Allergies Allergy/AdvReac Type Severity Reaction Status Date / Time morphine Allergy Anaphylactic Verified 09/10/19 08:22 Shock oxycodone Allergy Anaphylactic Verified 09/10/19 08:22 Shock codeine AdvReac Chest Pain Verified 09/10/19 08:22 nitroglycerin AdvReac Change Verified 09/10/19 08:22 [From Nitroglyn] Mental Status tramadol AdvReac Insomnia Verified 09/10/19 08:22 shellfish AdvReac Tachycardia Uncoded 09/10/19 08:22 Home Meds: Home Meds Spironolactone [Aldactone] 25 mg PO DAILY 11/20/14 [History] Thyroid [[place] Thyroid] 30 mg PO DAILY 11/20/14 [History] Celecoxib [CeleBREX] 100 mg PO BID PRN 04/29/19 [History] Lisinopril 5 mg PO DAILY 04/29/19 [History] Diltiazem [Cardizem CD] 120 mg PO DAILY #30 cap.cd 04/30/19 [Rx] Furosemide [Lasix] 40 mg PO BIDDIURETIC #60 tablet 04/30/19 [Rx] Metoprolol Succinate [Toprol XL 50mg] 50 mg PO BID #1 tab.er 04/30/19 [Rx] Potassium Chloride [Klor-Con M20] 20 meq PO DAILY #3 tab.er 04/30/19 [Rx] Warfarin [Coumadin] 4 mg PO QPM #1 tablet 04/30/19 [Rx] Clopidogrel [Plavix] 75 mg PO DAILY 08/17/19 [History] Past Medical History HEENT History: Reports: Impaired Vision Other HEENT History: Wears glasses Cardiovascular History: Reports: Afib, CAD, Cardiomyopathy, Heart Failure, High Cholesterol, Hypertension Other Cardiovascular History: growth in LL chamber. hypertrophic cardiomyopathy Gastrointestinal History: Reports: Celiac Disease, Colon Polyp, Diverticulosis, PUD Other Gastrointestinal History: celiac disease Genitourinary History: Reports: Renal Calculus, Urinary Incontinence SURFACER History: Reports: Musculoskeletal History: Reports: Osteoarthritis Neurological History: Reports: TIA, Other (See Below) Endocrine/Metabolic History: Reports: Hypothyroidism, Osteopenia Hematologic History: Reports: Anticoagulation Therapy - Past Surgical History Head Surgeries/Procedures: Reports: None HEENT Surgical History: Reports: Oral Surgery, Tonsillectomy Cardiovascular Surgical History: Reports: Coronary Artery Stent, Other (See Below) GI Surgical History: Reports: Cholecystectomy, Colonoscopy, EGD Female Surgical History: Reports: Other (See Below) Musculoskeletal Surgical History: Reports: Amputation, Knee Replacement, Shoulder Replacement Social & Family History - Family History Family Medical History: Noncontributory - Caffeine Use Caffeine Use: Reports: Coffee, Tea - Living Situation & Occupation Living situation: Reports: , with Spouse Occupation: Retired ED [employer] GENERAL - Review of Systems Review Of Systems: See Below Constitutional: Denies: Fever, Chills, Diaphoresis HEENT: Reports: No Symptoms Respiratory: Reports: Shortness of Breath (Intermittent for the past 3-4 days), Cough (Occasional). Denies: Wheezing, Pleuritic Chest Pain Cardiovascular: Reports: Chest Pain (Occasional mild achy discomfort lower chest ), Lightheadedness. Denies: Palpitations GI/Abdominal: Denies: Abdominal Pain, Nausea, Vomiting Musculoskeletal: Denies: Shoulder Pain, Arm Pain, Back Pain Skin: Reports: No Symptoms Neurological: Reports: Dizziness, Difficulty Walking (Mild difficulty due to dizziness, unsteadiness on feet, especially at night). Denies: Numbness, Tingling, Weakness ED EXAM, GENERAL - Physical Exam Exam: See Below General Appearance: Alert, No Apparent Distress Ears: Normal External Exam Throat/Mouth: Normal Inspection, Normal Oropharynx Head: Atraumatic. No: Facial Swelling Neck: Supple, Other (No JVD) Respiratory/Chest: No Respiratory Distress, Lungs Clear, Normal Breath Sounds. No: Rales, Rhonchi, Wheezing Cardiovascular: Systolic Murmur (mild) GI/Abdominal: Soft, Non-Tender Back Exam: No: CVA Tenderness (L), CVA Tenderness (R) Extremities: Normal Inspection, Normal Range of Motion, Non-Tender. No: Pedal Edema, Leg Pain, Increased Warmth, Redness Neurological: Alert, Oriented, No Motor/Sensory Deficits Skin Exam: Warm, Dry, Normal Color EKG INTERPRETATION EKG Date: 09/10/19 Rhythm: Other Rate (Beats/Min): 52 P-Wave: Present QRS: Other (Q waves V2) ST-T: Normal Course - Vital Signs Last Recorded V/S: Last Vital Signs Temp 98.3 F 09/10/19 11:00 Pulse 46 L 09/10/19 11:00 Resp 18 09/10/19 11:00 BP 161/75 H 09/10/19 11:00 Pulse Ox 96 09/10/19 11:00 - Orders/Labs/Meds Orders: Active Orders 24 hr Category Date Time Status EKG 12 Lead [EKG Documentation Completion] [RC] STAT Care 09/10/19 09:05 Active Labs: Laboratory Tests 09/10/19 09/10/19 09/10/19 Range/Units 09:15 09:15 09:15 WBC 4.84 (3.98-10.04) K/mm3 RBC 4.53 (3.98-5.22) M/mm3 Hgb 14.0 (11.2-15.7) gm/dl Hct 42.9 (34.1-44.9) % MCV 94.7 (79.4-94.8) fl MCH 30.9 (25.6-32.2) pg MCHC 32.6 (32.2-35.5) g/dl RDW Std Deviation 43.1 (36.4-46.3) fL Plt Count 171 L (182-369) K/mm3 MPV 9.8 (9.4-12.3) fl Neut % (Auto) 57.0 (34.0-71.1) % Lymph % (Auto) 29.8 (19.3-51.7) % [place] % (Auto) 10.7 (4.7-12.5) % Eos % (Auto) 1.9 (0.7-5.8) Baso % (Auto) 0.6 (0.1-1.2) % Neut # (Auto) 2.76 (1.56-6.13) K/mm3 Lymph # (Auto) 1.44 (1.18-3.74) K/mm3 [place] # (Auto) 0.52 H (0.24-0.36) K/mm3 Eos # (Auto) 0.09 (0.04-0.36) K/mm3 Baso # (Auto) 0.03 (0.01-0.08) K/mm3 PT (9.7-12.0) SECONDS INR Sodium 146 H (136-145) mEq/L Potassium 3.4 L (3.5-5.1) mEq/L Chloride 107 (98-107) mEq/L Carbon Dioxide 29 (21-32) mEq/L Anion Gap 13.4 (5-15) BUN 22 H (7-18) mg/dL Creatinine 0.9 (0.55-1.02) mg/dL Est Cr Clr Drug Dosing 38.12 mL/min Estimated GFR (MDRD) 60 (>60) mL/min BUN/Creatinine Ratio 24.4 H (14-18) Glucose 116 H (83-115) mg/dL Calcium 9.3 (8.5-10.1) mg/dL Total Bilirubin 0.5 (0.2-1.0) mg/dL AST 21 (15-37) U/L ALT 27 (14-59) U/L Alkaline Phosphatase 51 (46-116) U/L Troponin I < 0.017 (0.00-0.056) ng/mL NT-Pro-B Natriuret Pep 639 H (0-450) pg/mL Total Protein 6.4 (6.4-8.2) g/dl Albumin 3.2 L (3.4-5.0) g/dl Globulin 3.2 gm/dL Albumin/Globulin Ratio 1.0 (1-2) 09/10/19 Range/Units 09:15 WBC (3.98-10.04) K/mm3 RBC (3.98-5.22) M/mm3 Hgb (11.2-15.7) gm/dl Hct (34.1-44.9) % MCV (79.4-94.8) fl MCH (25.6-32.2) pg MCHC (32.2-35.5) g/dl RDW Std Deviation (36.4-46.3) fL Plt Count (182-369) K/mm3 MPV (9.4-12.3) fl Neut % (Auto) (34.0-71.1) % Lymph % (Auto) (19.3-51.7) % [place] % (Auto) (4.7-12.5) % Eos % (Auto) (0.7-5.8) Baso % (Auto) (0.1-1.2) % Neut # (Auto) (1.56-6.13) K/mm3 Lymph # (Auto) (1.18-3.74) K/mm3 [place] # (Auto) (0.24-0.36) K/mm3 Eos # (Auto) (0.04-0.36) K/mm3 Baso # (Auto) (0.01-0.08) K/mm3 PT 23.9 H (9.7-12.0) SECONDS INR 2.30 Sodium (136-145) mEq/L Potassium (3.5-5.1) mEq/L Chloride (98-107) mEq/L Carbon Dioxide (21-32) mEq/L Anion Gap (5-15) BUN (7-18) mg/dL Creatinine (0.55-1.02) mg/dL Est Cr Clr Drug Dosing mL/min Estimated GFR (MDRD) (>60) mL/min BUN/Creatinine Ratio (14-18) Glucose (83-115) mg/dL Calcium (8.5-10.1) mg/dL Total Bilirubin (0.2-1.0) mg/dL AST (15-37) U/L ALT (14-59) U/L Alkaline Phosphatase (46-116) U/L Troponin I (0.00-0.056) ng/mL NT-Pro-B Natriuret Pep (0-450) pg/mL Total Protein (6.4-8.2) g/dl Albumin (3.4-5.0) g/dl Globulin gm/dL Albumin/Globulin Ratio (1-2) - Re-Assessments/Exams Free Text/Narrative Re-Assessment/Exam: 09/10/19 18:10 Patient states she does have history of cardiomyopathy. She is on the metoprolol as stated and also on diltiazem. She states that her metoprolol was decreased from 100 mg twice a day to 50 mg twice a day a few months ago. Here in the ED her heart rate has been running in the upper 40s to very low 50s. Due to her current symptoms L increase her evening metoprolol from 50 mg to 25 mg. His comfortable with that plan. Her pressure has been upper range of normal in the 140s, 150s systolic so here in the ED she is showing no sign of hypotension. Discharge instructions as documented. 09/10/19 18:47. Head CT did not show any acute findings. Chest x-ray also relatively normal Departure - Departure Time of Disposition: 11:10 Disposition: Home, Self-Care 01 Condition: Fair Clinical Impression: Dizziness, Bradycardia Instructions: Bradycardia, Adult, Dizziness, [id number] Referrals: Geoffrey Tidwell MD [Primary Care Provider] - Forms: ED Department Discharge Additional Instructions: Cut back on your evening dose of metoprolol to one quarter of a 100 mg tab or 25 mg in the evening. Continue your morning dose of 50 mg and continue your other current medications as previously prescribed. Drink plenty of water to maintain hydration. Follow-up with Dr. Bonner in about 1 week. Call for appointment Wednesday. Keep a log of your blood pressure and heart rate readings and bring that record with you for your next clinic appointment. Return to ED as needed if symptoms worsening in any way. - My Orders Last 24 Hours: My Active Orders 09/10/19 09:05 EKG 12 Lead [EKG Documentation Completion] [RC] STAT - Assessment/Plan Last 24 Hours: My Active Orders 09/10/19 09:05 EKG 12 Lead [EKG Documentation Completion] [RC] STAT
--- NOTE | 2019-09-10 10:18 | CT ---
Head CT Technique: Multiple axial sections through the brain were obtained. Intravenous contrast was not utilized. Comparison: No prior head CT study is available. Findings: Ventricles along with basal cisterns and sulci the convexities are mildly prominent. Diminished density is noted within portions of the periventricular white matter as well as within portions of the basal ganglia compatible with small vessel ischemic demyelination change. 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 No other abnormal parenchymal densities are seen. No evidence of intracranial hemorrhage. No midline shift or mass effect is seen. Slight atherosclerotic calcification is noted within the vertebral vessels and within the carotid siphon. Visualized paranasal sinuses and mastoid sinuses are clear. No acute calvarial abnormality is appreciated. Impression: 1. Senescent change as noted above. 2. Nothing acute is appreciated on noncontrast head CT exam. Diagnostic code #2
[2019-09-10 12:40] VITALS: BP 161/75; PULSE 46
--- NOTE | 2019-09-10 13:42 | CR ---
Chest: Portable view of the chest was obtained. Comparison: Prior chest x-ray of 08/17/19. Heart is felt to be slightly prominent in size. Tortuous thoracic aorta is noted. Left shoulder prosthesis is seen. Lungs are clear with no acute parenchymal change. Impression: 1. Findings as noted above. 2. Nothing acute is appreciated. Diagnostic code #2
== END 2019-09-10 11:45 | disposition home or self-care (01) ==
LOC: JD.ED 08:05
DX: R42 Dizziness and giddiness (principal); R00.1 Bradycardia, unspecified; I48.91 Unspecified atrial fibrillation; I25.10 Atherosclerotic heart disease of native coronary artery without angina pectoris; I11.0 Hypertensive heart disease with heart failure; I50.9 Heart failure, unspecified; Z88.5 Allergy status to narcotic agent; Z88.8 Allergy status to other drugs, medicaments and biological substances; Z79.01 Long term (current) use of anticoagulants; Z86.73 Personal history of transient ischemic attack (TIA), and cerebral infarction without residual deficits
CPT/HCPCS: 36415; 70450; 70450-26; 71045; 71045-26; 80053; 83880; 84484; 85025; 85610; 93005; 93010; 99283; 99284-25

== ENCOUNTER 2020-06-01 09:43 | Emergency (ER) | payer MEDICARE, OTHER ==
--- NOTE | 2020-06-01 11:15 | EDM.PDOC ---
ED HPI GENERAL MEDICAL PROBLEM - General Chief Complaint: Upper Extremity Injury/Pain Stated Complaint: WRIST PAIN Time Seen by Provider: 06/01/20 11:02 Source of Information: Reports: Patient History Limitations: Reports: No Limitations - History of Present Illness INITIAL COMMENTS - FREE TEXT/NARRATIVE: Patient is an 85-year-old female who presents to the emergency department with complaints of pain and swelling to her left hand. She has bilateral wrist fractures. States she broke her right wrist about 4 weeks ago in her left wrist about 2 weeks ago, however she just went to the clinic this past Wednesday for treatment. A cast was placed on her left wrist. She states that she feels like it is too tight. She was seen in the clinic at the end of last week and the cast was cut on one side, however she continues to have swelling of her hand and states that it is cutting into the proximal aspect of her forearm. Her right wrist she had a "net like "splint that she was supposed to be able to remove, however they were unable to get it off due to swelling so her cut it off. She has no splint on at this time. She states that she saw Dr. Carrillo at [facility] for treatment. She has full sensation in her fingers bilaterally. Left Wrist Pain Score (Numeric/FACES): 7 - Related Data Allergies Allergy/AdvReac Type Severity Reaction Status Date / Time morphine Allergy Severe Anaphylactic Verified 06/01/20 10:14 Shock oxycodone Allergy Severe Anaphylactic Verified 06/01/20 10:14 Shock codeine AdvReac Severe Chest Pain Verified 06/01/20 10:14 nitroglycerin AdvReac Severe Change Verified 06/01/20 10:14 [From Nitroglyn] Mental Status tramadol AdvReac Severe Insomnia Verified 06/01/20 10:14 shellfish AdvReac Severe Tachycardia Uncoded 06/01/20 10:14 Home Meds: Home Meds Spironolactone [Aldactone] 25 mg PO DAILY 11/20/14 [History] Thyroid [[place] Thyroid] 30 mg PO DAILY 11/20/14 [History] Celecoxib [CeleBREX] 100 mg PO BID PRN 04/29/19 [History] lisinopriL [Lisinopril] 5 mg PO DAILY 04/29/19 [History] Diltiazem [Cardizem CD] 120 mg PO DAILY #30 cap.cd 04/30/19 [Rx] Furosemide [Lasix] 40 mg PO BIDDIURETIC #60 tablet 04/30/19 [Rx] Metoprolol Succinate [Toprol XL 50mg] 50 mg PO BID #1 tab.er 04/30/19 [Rx] Potassium Chloride [Klor-Con M20] 20 meq PO DAILY #3 tab.er 04/30/19 [Rx] Warfarin [Coumadin] 4 mg PO QPM #1 tablet 04/30/19 [Rx] Clopidogrel [Plavix] 75 mg PO DAILY 08/17/19 [History] Past Medical History HEENT History: Reports: Impaired Vision Other HEENT History: Wears glasses Cardiovascular History: Reports: Afib, CAD, Cardiomyopathy, Heart Failure, High Cholesterol, Hypertension Other Cardiovascular History: growth in LL chamber. 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 Endocrine/Metabolic History: Reports: Hypothyroidism, Osteopenia Hematologic History: Reports: Anticoagulation Therapy - Past Surgical History Head Surgeries/Procedures: Reports: None HEENT Surgical History: Reports: Oral Surgery, Tonsillectomy Cardiovascular Surgical History: Reports: Coronary Artery Stent, Other (See Below) GI Surgical History: Reports: Cholecystectomy, Colonoscopy, EGD Musculoskeletal Surgical History: Reports: Amputation, Knee Replacement, Shoulder Replacement Social & Family History - Family History Family Medical History: Noncontributory - Caffeine Use Caffeine Use: Reports: Coffee, Tea - Living Situation & Occupation Living situation: Reports: , with Spouse Occupation: Retired Review of Systems - Review of Systems Review Of Systems: Comprehensive ROS is negative, except as noted in HPI. ED EXAM, GENERAL - Physical Exam Exam: See Below Exam Limited By: No Limitations General Appearance: Alert, WD/WN, No Apparent Distress Respiratory/Chest: No Respiratory Distress, Lungs Clear, Normal Breath Sounds, No Accessory Muscle Use, Chest Non-Tender Cardiovascular: Normal Peripheral Pulses, Regular Rate, Rhythm, No Edema, No Gallop, No JVD, No Murmur, No Rub Extremities: Other (Redness and edema to the left fingers distal to the cast. CMS is intact. No obvious swelling or deformity to the right wrist.) Neurological: Alert, Oriented, CN II-XII Intact, Normal Cognition, Normal Gait, Normal Reflexes, No Motor/Sensory Deficits Psychiatric: Normal Affect, Normal Mood Skin Exam: Warm, Dry, Intact, Normal Color, No Rash ED TRAUMA EXTREMITY PROCEDURES - Splinting Left Upper Extremity Splint Site: Left wrist Pre-Procedure NV Status: Abnormal (Swelling and limited movement of the fingers. Fingers were warm and patient had full sensation.) Post-Procedure NV Status: Normal Splint Material: Fiberglass Splint Design: Volar Applied & Form Fitted By: Provider Provider Post-Splint Application NV Check: NV Status Normal, Good Position Complications: No Course - Vital Signs Last Recorded V/S: Last Vital Signs Temp 97.8 F 06/01/20 10:10 Pulse 73 06/01/20 10:10 Resp 16 06/01/20 10:10 BP 151/97 H 06/01/20 10:10 Pulse Ox 97 06/01/20 10:10 - Re-Assessments/Exams Free Text/Narrative Re-Assessment/Exam: 06/01/20 11:29 Cast was cut off the left wrist. Patient had significant relief after cast was removed. A volar splint has been applied to the wrist. She states that it feels much better. CMS is intact distal to the splint. We will provide her with a Velcro wrist splint for her right wrist. Recommend that she follow-up with Dr. Carrillo on Wednesday. Departure - Departure Time of Disposition: 11:30 Disposition: Home, Self-Care 01 Condition: Good Clinical Impression: Cast discomfort Wrist fracture, bilateral Qualifiers: Encounter type: initial encounter Fracture type: closed Qualified Code(s): S62.101A - Fracture of unspecified carpal bone, right wrist, initial encounter for closed fracture; S62.102A - Fracture of unspecified carpal bone, left wrist, initial encounter for closed fracture - Discharge Information *PRESCRIPTION DRUG MONITORING PROGRAM REVIEWED*: No *COPY OF PRESCRIPTION DRUG MONITORING REPORT IN PATIENT KYLER: No Instructions: Cast or Splint Care, Adult, [id number] Referrals: PCP,None [Ordering Only Provider] - Edward Carrillo DO [Physician] - Forms: ED Department Discharge Additional Instructions: You were seen in the emergency department today for pain and swelling to your left hand due to your cast fitting too tight. The cast was cut off and a splint has been applied. This should remain clean and dry and intact until you are seen by Dr. Carrillo. You have also been provided with a removable splint for your right wrist. Wear this at all times until seen by orthopedics. Recommend that you call Wednesday morning to schedule follow-up with Dr. Carrillo. Return to the ER as needed. Sepsis Event Note (ED) - Evaluation Sepsis Screening Result: No Definite Risk - Focused Exam Vital Signs: Vital Signs Temp Pulse Resp BP Pulse Ox 06/01/20 10:10 97.8 F 73 16 151/97 H 97
[2020-06-01 13:04] VITALS: BP 160/107; PULSE 72
== END 2020-06-01 11:55 | disposition home or self-care (01) ==
LOC: JD.ED 09:43
DX: S62.101A Fracture of unspecified carpal bone, right wrist, initial encounter for closed fracture (principal); S62.102A Fracture of unspecified carpal bone, left wrist, initial encounter for closed fracture; I11.0 Hypertensive heart disease with heart failure; I50.9 Heart failure, unspecified; I25.10 Atherosclerotic heart disease of native coronary artery without angina pectoris; E03.9 Hypothyroidism, unspecified; Z86.73 Personal history of transient ischemic attack (TIA), and cerebral infarction without residual deficits; Z79.01 Long term (current) use of anticoagulants; Z79.02 Long term (current) use of antithrombotics/antiplatelets; Z79.899 Other long term (current) drug therapy; Z88.5 Allergy status to narcotic agent; Z88.8 Allergy status to other drugs, medicaments and biological substances; Z91.013 Allergy to seafood; X58.XXXA Exposure to other specified factors, initial encounter
CPT/HCPCS: 29125; 99282; 99283-25

== ENCOUNTER 2021-03-31 07:30 | Day surgery (SDC) | payer MEDICARE, OTHER ==
[~2021-03-31 07:30] MED LIST changes: -Enoxaparin 30 MG/0.3 ML Syringe SUBCUT SCH; +Lactated Ringers 1,000 ML IV SCH; +Lidocaine 1%/Sod Bicarbonate in NS 8.4% 1 ML Syringe IDERM PRN; +Sodium Chloride 0.9% 10 ML Syringe FLUSH PRN
--- NOTE | 2021-03-31 08:02 | PCM.PREANE ---
<Lalita Frias - Last Filed: 03/31/21 08:00> Preanesthetic Assessment - Procedure Proposed Procedure: EGD colonoscopy - Allergies Allergies/Adverse Reactions: Allergies Allergy/AdvReac Type Severity Reaction Status Date / Time morphine Allergy Severe Anaphylactic Verified 03/28/21 10:20 Shock oxycodone Allergy Severe Anaphylactic Verified 03/28/21 10:20 Shock codeine AdvReac Severe Chest Pain Verified 03/28/21 10:20 nitroglycerin AdvReac Severe Change Verified 03/28/21 10:20 [From Nitroglyn] Mental Status tramadol AdvReac Severe Insomnia Verified 03/28/21 10:20 shellfish AdvReac Severe Tachycardia Uncoded 03/28/21 10:20 PreAnesthesia Questionnaire HEENT History: Reports: Impaired Vision Other HEENT History: Wears glasses Cardiovascular History: Reports: Afib, CAD, Cardiomyopathy, Heart Failure, Heart Murmur, High Cholesterol, Hypertension Other Cardiovascular History: diastolic dysfunction, chrontropic incompetence, carotid bruit, peripheral edema Respiratory History: Reports: None Gastrointestinal History: Reports: Celiac Disease, Colon Polyp, Diverticulosis, GERD, PUD Other Gastrointestinal History: celiac disease Genitourinary History: Reports: Renal Calculus, Urinary Incontinence, Other (See Below) Other Genitourinary History: CKD II 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: Musculoskeletal History: Reports: Osteoarthritis Neurological History: Reports: TIA Other Neuro History: tremor, cerebellar stroke Psychiatric History: Reports: Anxiety Endocrine/Metabolic History: Reports: Hypothyroidism, Osteopenia Hematologic History: Reports: Anticoagulation Therapy Immunologic History: Reports: None Oncologic (Cancer) History: Reports: None Dermatologic History: Reports: Other (See Below) Other Dermatologic History: actinic keratosis - Past Surgical History Head Surgeries/Procedures: Reports: None HEENT Surgical History: Reports: Oral Surgery, Tonsillectomy Cardiovascular Surgical History: Reports: Coronary Artery Stent Respiratory Surgical History: Reports: None GI Surgical History: Reports: Cholecystectomy, Colonoscopy, EGD Female Surgical History: Reports: Tubal Ligation Other Female Surgeries/Procedures: mesh implant Male Surgical History: Reports: None Endocrine Surgical History: Reports: None Neurological Surgical History: Reports: Lumbar Spine Musculoskeletal Surgical History: Reports: Amputation, Knee Replacement, Shoulder Replacement Oncologic Surgical History: Reports: None Dermatological Surgical History: Reports: None - SUBSTANCE USE Tobacco Use Status *Q: Never Tobacco User Recreational Drug Use History: No - HOME MEDS Home Medications: Home Meds Furosemide [Lasix] 40 mg PO BIDDIURETIC #60 tablet 04/30/19 [Rx] Acetaminophen [Tylenol] 650 mg PO Q4H PRN 03/28/21 [History] Ascorbic Acid [Vitamin C] 250 mg PO DAILY 03/28/21 [History] Proctor 1 dose PO DAILY 03/28/21 [History] C-Biest Cream 1 dose TOP DAILY 03/28/21 [History] Cholecalciferol (Vitamin D3) [Vitamin D3] 1,000 unit PO DAILY 03/28/21 [History] Cod Liver Oil 1 cap PO DAILY 03/28/21 [History] Fish Oil/[employer] Home-3 Fatty Acids [Fish Oil 1,000 MG] 2 gm PO DAILY 03/28/21 [History] Furosemide [Lasix] 40 mg PO DAILY 03/28/21 [History] Garlic 1,000 mg PO DAILY 03/28/21 [History] Glucosamine [Glucosamine Sulfate] 500 mg PO DAILY 03/28/21 [History] Gugulipid 500 mg PO DAILY 03/28/21 [History] Hyalur Ac/Chond Sul/Colg II/AA [Hyaluronic Acid 40 MG] 1 cap PO DAILY 03/28/21 [History] Losartan [Cozaar] 25 mg PO DAILY 03/28/21 [History] Magnesium Carbonate/Asafetida [Dewee's Carminative] 250 mg PO DAILY 03/28/21 [History] Methylsulfonylmethane [MSM] 1,000 mg PO DAILY 03/28/21 [History] Metoprolol Succinate [Toprol XL] 25 g PO DAILY 03/28/21 [History] Milk Thistle 500 mg PO DAILY 03/28/21 [History] Multivitamin 1 tab PO DAILY 03/28/21 [History] Pantoprazole Sodium [Protonix] 20 mg PO DAILY 03/28/21 [History] Potassium Chloride [Klor-Con M20] 40 meq PO DAILY 03/28/21 [History] Prasterone (DHEA)/Calcium Carb [DHEA] 1 tab PO DAILY 03/28/21 [History] Thyroid [[place] Thyroid] 15 mg PO DAILY 03/28/21 [History] Ubidecarenone [Coq-10] 100 mg PO DAILY 03/28/21 [History] Vitamin B Complex [B Complex] 1 tab PO DAILY 03/28/21 [History] Vitamin E 400 unit PO DAILY 03/28/21 [History] Warfarin [Coumadin] 2.5 mg PO SUTUWETHFRSA 03/28/21 [History] Warfarin [Coumadin] 5 mg PO MO 03/28/21 [History] amLODIPine [Norvasc] 10 mg PO DAILY 03/28/21 [History] diphenhydrAMINE HCL [Benadryl] 25 mg PO DAILY 03/28/21 [History] <Caridad Leyva M - Last Filed: 03/31/21 08:40> Preanesthetic Assessment - Anesthesia/Transfusion/Family Hx Anesthesia History: Prior Anesthesia Without Reaction Family History of Anesthesia Reaction: No Transfusion History: No Prior Transfusion(s) - Review of Systems General: No Symptoms Pulmonary: Shortness of Breath (cardiomyopathy) Cardiovascular: Dyspnea on Exertion Gastrointestinal: Abdominal Pain (couple years) Neurological: Dizziness (because sugar drops), Tremors (essential tremors- vs parkinsons), Other (stroke because forgot to take bp pills23 years ago) Other: Reports: Easy Bruising, Thyroid Problems, Neck Pain - Physical Assessment NPO Status Date: 03/30/21 NPO Status Time: 22:00 Vital Signs: 133/74 68 95% 16 97.8 Height: 5 ft 1 in Weight: 59 kg ASA Class: 3 Mental Status: Alert & Oriented x3 Airway Class: Mallampati = 1 Dentition: Reports: Normal Dentition (top and bottom) Thyro-Mental Finger Breadths: 3 Mouth Opening Finger Breadths: 3 ROM/Head Extension: Limited/Partial Lungs: Clear to Auscultation Cardiovascular: Regular Rate, Murmurs - Blood Blood Available: No - Anesthesia Plan Beta Flower: Metoprolol Med Last Dose Date: 03/31/21 Med Last Dose Time: 07:00 - Acknowledgements Anesthesia Type Planned: MAC Pt an Appropriate Candidate for the Planned Anesthesia: Yes Alternatives and Risks of Anesthesia Discussed w Pt/Guardian: Yes Pt/Guardian Understands and Agrees with Anesthesia Plan: Yes PreAnesthesia Questionnaire Cardiovascular History: Reports: Afib, CAD, Cardiomyopathy, Heart Failure, Heart Murmur, High Cholesterol, Hypertension Respiratory History: Reports: Other (See Below) (dorina- denies cpap) Gastrointestinal History: Reports: Celiac Disease, Colon Polyp, Diverticulosis, GERD, PUD Genitourinary History: Reports: Renal Calculus, Urinary Incontinence, Other (See Below) 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: Musculoskeletal History: Reports: Osteoarthritis Psychiatric History: Reports: Anxiety Endocrine/Metabolic History: Reports: Hypothyroidism, Osteopenia Hematologic History: Reports: Anticoagulation Therapy Immunologic History: Reports: None Oncologic (Cancer) History: Reports: None - Past Surgical History Head Surgeries/Procedures: Reports: None HEENT Surgical History: Reports: Oral Surgery, Tonsillectomy Cardiovascular Surgical History: Reports: Coronary Artery Stent Respiratory Surgical History: Reports: None GI Surgical History: Reports: Cholecystectomy, Colonoscopy, EGD Female Surgical History: Reports: Tubal Ligation Neurological Surgical History: Reports: Lumbar Spine Musculoskeletal Surgical History: Reports: Amputation, Knee Replacement, Shoulder Replacement - SUBSTANCE USE Tobacco Use Status *Q: Never Tobacco User Tobacco Use Within Last Twelve Months: No Second Hand Smoke Exposure: No Days Per Week of Alcohol Use: 0 Recreational Drug Use History: No - CURRENT (IN HOUSE) MEDS Current Meds: Current Medications Lactated Ringer's (Ringers, Lactated) 1,000 mls @ 125 mls/hr IV ASDIRECTED MARANDA Stop: 03/31/21 23:00 Last Admin: 03/31/21 08:00 Dose: 125 mls/hr Documented by: Lidocaine/Sodium Bicarbonate (Lidocaine 1%/Sod Bicarbonate In Ns 8.4% 1 Ml Syringe) 0.25 ml IDERM ONETIME PRN PRN Reason: Prior to IV Start Stop: 03/31/21 18:00 Sodium Chloride (Sodium Chloride 0.9% 10 Ml Syringe) 10 ml FLUSH ASDIRECTED PRN PRN Reason: Keep Vein Open Stop: 03/31/21 18:00
[2021-03-31] MEDS ORDERED: Propofol 200 MG/20 ML SDV ONE ×2 (08:34→08:35)
[2021-03-31] MEDS ORDERED: Lidocaine 1% 0 ML ONE (08:36)
[2021-03-31] MEDS ORDERED: Lidocaine 1% 4 ML ONE (09:20)
[2021-03-31] MEDS ORDERED: Midazolam 1 MG/ML 2 ML SDV ONE (09:21)
--- NOTE | 2021-03-31 10:09 | PCM48HPAN ---
Post Anesthesia Note - EVALUATION WITHIN 48HRS OF ANESTHETIC Vital Signs in Normal Range: Yes Patient Participated in Evaluation: Yes Respiratory Function Stable: Yes Airway Patent: Yes Cardiovascular Function Stable: Yes Hydration Status Stable: Yes Pain Control Satisfactory: Yes Nausea and Vomiting Control Satisfactory: Yes Mental Status Recovered: Yes Vital Signs: Last Vital Signs 0958 107/56 98 2l 50 13 96.9 Temp 36.6 C 03/31/21 07:35 Pulse 68 03/31/21 07:35 Resp 16 03/31/21 07:35 BP 133/74 03/31/21 07:35 Pulse Ox 95 03/31/21 07:35
--- NOTE | 2021-03-31 10:29 | PROC ---
DATE OF OPERATION: 03/31/2021 SURGEON: Shaq Celeste MD PREOPERATIVE DIAGNOSES: Abdominal bloating and hematochezia. POSTOPERATIVE DIAGNOSES: 1. Gastritis. 2. Diverticulosis. 3. Grade 3 internal hemorrhoids. OPERATION PERFORMED: 1. Esophagogastroduodenoscopy. 2. Colonoscopy. ANESTHESIA: Monitored anesthesia care. COMPLICATIONS: None. ESTIMATED BLOOD LOSS: Minimal. INDICATIONS AND CONSENT: Ms. Kent is an 86-year-old female who has been having abdominal bloating and gassy abdomen, as well as hematochezia. This has gotten worse in the recent days. The patient presented to my clinic for evaluation and I offered her esophagogastroduodenoscopy and colonoscopy. Of note, she has a history of gastric ulcers as well. We discussed risks, benefits, and alternatives, and informed consent was obtained. DETAILS OF PROCEDURE: The patient was taken to procedure room, placed in left lateral decubitus position. Monitored anesthesia care was induced. Time-out was performed. We began the procedure with an esophagogastroduodenoscopy. Scope was placed into the mouth and taken down to the second portion of duodenum. Duodenum was normal. Antrum had areas of erythema indicating inflammation. Body of the stomach was mildly granulated also indicating slight inflammation. On retroflexion, did not see any abnormalities. Biopsies were taken in the antrum to confirm inflammation in this area, rule out H pylori. I then went back to the esophagus. GE junction was slightly irregular indicating mild esophagitis, likely LA grade A. Biopsies were taken at the GE junction for evaluation, but the rest of the esophagus appeared normal. At this point, this part of the procedure was concluded. Air was suctioned out and we began the colonoscopy. Perianal exam revealed some skin tags as well as internal hemorrhoids. We put the scope in and taken all the way to the cecum. Appendiceal orifice was photographed as well as ileocecal valve. There was some scattered diverticulosis, few in the transverse colon and mostly in the descending and sigmoid colon. Upon retroflexion in the rectum, there were internal hemorrhoids as well. There were no polyps in this examination. Prep was good. Air was suctioned out and procedure was concluded. Therefore, for this procedure, the patient has gastritis, mild esophagitis, diverticulosis, and internal hemorrhoids. The patient was awoken from anesthesia, taken to the recovery area. The patient will be allowed to return home, start her Coumadin today. Follow up in 2 weeks. KRYSTAL /[id number] MTDD
[2021-03-31 10:52] VITALS: BP 110/56; PULSE 52
== END 2021-03-31 11:05 | disposition home or self-care (01) ==
LOC: JD.SDS 07:30
PROVIDERS: ATTEND Surgery
DX: K20.90 Esophagitis, unspecified without bleeding (principal); K64.8 Other hemorrhoids; K57.30 Diverticulosis of large intestine without perforation or abscess without bleeding; K31.89 Other diseases of stomach and duodenum; K22.8 Other specified diseases of esophagus; I50.9 Heart failure, unspecified; I25.10 Atherosclerotic heart disease of native coronary artery without angina pectoris; E78.00 Pure hypercholesterolemia, unspecified; G47.33 Obstructive sleep apnea (adult) (pediatric); E03.9 Hypothyroidism, unspecified; Z86.010 Personal history of colon polyps; I13.0 Hypertensive heart and chronic kidney disease with heart failure and stage 1 through stage 4 chronic kidney disease, or unspecified chronic kidney disease; N18.2 Chronic kidney disease, stage 2 (mild); Z88.6 Allergy status to analgesic agent; Z88.8 Allergy status to other drugs, medicaments and biological substances; Z91.013 Allergy to seafood; Z79.01 Long term (current) use of anticoagulants; Z86.73 Personal history of transient ischemic attack (TIA), and cerebral infarction without residual deficits; Z95.5 Presence of coronary angioplasty implant and graft
CPT/HCPCS: 36415; 43239; 80048; 85610; 88305; J2704; J7120; 00813; 99100; J2250

== ENCOUNTER 2021-06-19 04:58 | Emergency (ER) | payer MEDICARE, OTHER ==
--- NOTE | 2021-06-19 05:14 | EDM.PDOC ---
<JuliaTed German - Last Filed: 06/19/21 19:16> ED HPI GENERAL MEDICAL PROBLEM - General Chief Complaint: Chest Pain Stated Complaint: CHEST PAIN Time Seen by Provider: 06/19/21 05:14 - History of Present Illness INITIAL COMMENTS - FREE TEXT/NARRATIVE: 86-year-old female presents the emergency room with chest and abdominal pain. This pain started yesterday afternoon comes and goes. Yesterday she was doing some yard work and seemed to do okay after she came into the house she developed some discomfort seem to be from below the umbilicus up to the mid chest region. She ate some ice cream and the pain got better. This bothered her again on and off through the evening up until now. Is not associated with any nausea or vomiting no breathing difficulties or shortness of breath. The patient is got significant coronary artery disease she is got multiple stents in has a history of A. fib and is on Coumadin. Chest Pain Score (Numeric/FACES): 0 - Related Data Allergies Allergy/AdvReac Type Severity Reaction Status Date / Time morphine Allergy Severe Anaphylactic Verified 06/19/21 05:14 Shock oxycodone Allergy Severe Anaphylactic Verified 06/19/21 05:14 Shock codeine AdvReac Intermediate Chest Pain Verified 06/19/21 05:14 nitroglycerin AdvReac Intermediate Change Verified 06/19/21 05:14 [From Nitroglyn] Mental Status tramadol AdvReac Mild Insomnia Verified 06/19/21 05:14 shellfish AdvReac Intermediate Tachycardia Uncoded 03/31/21 14:21 Home Meds: Home Meds Furosemide [Lasix] 40 mg PO BIDDIURETIC #60 tablet 04/30/19 [Rx] Acetaminophen [Tylenol] 650 mg PO Q4H PRN 03/28/21 [History] Ascorbic Acid [Vitamin C] 250 mg PO DAILY 03/28/21 [History] [place] 1 dose PO DAILY 03/28/21 [History] C-Biest Cream 1 dose TOP DAILY 03/28/21 [History] Cholecalciferol (Vitamin D3) [Vitamin D3] 1,000 unit PO DAILY 03/28/21 [History] Cod Liver Oil 1 cap PO DAILY 03/28/21 [History] Fish Oil/[place]-3 Fatty Acids [Fish Oil 1,000 MG] 2 gm PO DAILY 03/28/21 [History] Furosemide [Lasix] 40 mg PO DAILY 03/28/21 [History] Garlic 1,000 mg PO DAILY 03/28/21 [History] Glucosamine [Glucosamine Sulfate] 500 mg PO DAILY 03/28/21 [History] Gugulipid 500 mg PO DAILY 03/28/21 [History] Hyalur Ac/Chond Sul/Colg II/AA [Hyaluronic Acid 40 MG] 1 cap PO DAILY 03/28/21 [History] Losartan [Cozaar] 25 mg PO DAILY 03/28/21 [History] Magnesium Carbonate/Asafetida [[place] Carminative] 250 mg PO DAILY 03/28/21 [History] Methylsulfonylmethane [MSM] 1,000 mg PO DAILY 03/28/21 [History] Metoprolol Succinate [Toprol XL] 25 g PO DAILY 03/28/21 [History] Milk Thistle 500 mg PO DAILY 03/28/21 [History] Multivitamin 1 tab PO DAILY 03/28/21 [History] Pantoprazole Sodium [Protonix] 20 mg PO DAILY 03/28/21 [History] Potassium Chloride [Klor-Con M20] 40 meq PO DAILY 03/28/21 [History] Prasterone (DHEA)/Calcium Carb [DHEA] 1 tab PO DAILY 03/28/21 [History] Thyroid [[place] Thyroid] 15 mg PO DAILY 03/28/21 [History] Ubidecarenone [Coq-10] 100 mg PO DAILY 03/28/21 [History] Vitamin B Complex [B Complex] 1 tab PO DAILY 03/28/21 [History] Vitamin E 400 unit PO DAILY 03/28/21 [History] Warfarin [Coumadin] 2.5 mg PO SUTUWETHFRSA 03/28/21 [History] Warfarin [Coumadin] 5 mg PO MO 03/28/21 [History] amLODIPine [Norvasc] 10 mg PO DAILY 03/28/21 [History] diphenhydrAMINE HCL [Benadryl] 25 mg PO DAILY 03/28/21 [History] polyethylene glycoL 3350 [MiraLAX] 17 gm PO DAILY #1 container 06/19/21 [Rx] Past Medical History HEENT History: Reports: Impaired Vision Other HEENT History: Wears glasses Cardiovascular History: Reports: Afib, CAD, Cardiomyopathy, Heart Failure, Heart Murmur, High Cholesterol, Hypertension Other Cardiovascular History: diastolic dysfunction, chrontropic incompetence, carotid bruit, peripheral edema Respiratory History: Reports: Other (See Below) (dorina- denies cpap) Gastrointestinal History: Reports: Celiac Disease, Colon Polyp, Diverticulosis, GERD, PUD Other Gastrointestinal History: celiac disease Genitourinary History: Reports: Renal Calculus, Urinary Incontinence, Other (See Below) Other Genitourinary History: CKD II 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: Musculoskeletal History: Reports: Osteoarthritis Neurological History: Reports: TIA Other Neuro History: tremor, cerebellar stroke Psychiatric History: Reports: Anxiety Endocrine/Metabolic History: Reports: Hypothyroidism, Osteopenia Hematologic History: Reports: Anticoagulation Therapy Immunologic History: Reports: None Oncologic (Cancer) History: Reports: None Dermatologic History: Reports: Other (See Below) Other Dermatologic History: actinic keratosis - Past Surgical History Head Surgeries/Procedures: Reports: None HEENT Surgical History: Reports: Oral Surgery, Tonsillectomy Cardiovascular Surgical History: Reports: Coronary Artery Stent Respiratory Surgical History: Reports: None GI Surgical History: Reports: Cholecystectomy, Colonoscopy, EGD Female Surgical History: Reports: Tubal Ligation Neurological Surgical History: Reports: Lumbar Spine Musculoskeletal Surgical History: Reports: Amputation, Knee Replacement, Shoulder Replacement Social & Family History - Family History Family Medical History: No Pertinent Family History - Caffeine Use Caffeine Use: Reports: Coffee, Tea - Living Situation & Occupation Living situation: Reports: , with Spouse Occupation: Retired ED ROS GENERAL - Review of Systems Review Of Systems: See Below Constitutional: Reports: No Symptoms HEENT: Reports: No Symptoms Respiratory: Reports: No Symptoms Cardiovascular: Reports: Chest Pain. Denies: No Symptoms Endocrine: Reports: No Symptoms GI/Abdominal: Reports: Abdominal Pain. Denies: No Symptoms, Constipation, Diarrhea, Nausea, Vomiting : Reports: No Symptoms Musculoskeletal: Reports: No Symptoms Skin: Reports: No Symptoms Neurological: Reports: No Symptoms ED EXAM, GENERAL - Physical Exam Exam: See Below Exam Limited By: No Limitations General Appearance: Alert, No Apparent Distress Head: Atraumatic, Normocephalic Neck: Normal Inspection, Supple, Non-Tender, Full Range of Motion. No: Carotid Bruit, Lymphadenopathy (R) Respiratory/Chest: No Respiratory Distress, Lungs Clear, Normal Breath Sounds Cardiovascular: Regular Rate, Rhythm, No Edema, Systolic Murmur (2/6 systolic murmur heard best on the right upper sternal border) GI/Abdominal: Normal Bowel Sounds, Soft, Non-Tender, No Abnormal Bruit, No Mass Back Exam: Normal Inspection. No: CVA Tenderness (L), CVA Tenderness (R) Extremities: Normal Inspection, Pedal Edema (Scant amount) Neurological: Alert, Oriented, Normal Cognition Skin Exam: Warm, Dry, Intact #1 Interpretation EKG Date: 06/19/21 Rhythm: Other (Sinus first-degree AV block) Rate (Beats/Min): 60 [place]: Normal P-Wave: Present QRS: Other (Suspect LVH based on the EKG poor voltage limb leads) ST-T: Other (S T elevation V2 no reciprocal changes this is stable or improved compared to 07/08/2019) QT: Normal Comparison: No Change (No significant change compared to 07/08/2019) EKG Interpretation Comments: Abnormal EKG Course - Re-Assessments/Exams Free Text/Narrative Re-Assessment/Exam: 06/19/21 07:21 Chest x-ray slightly rotated borderline cardiomegaly otherwise no acute changes noted she has a left shoulder prosthesis in place. Troponin is negative INR is slightly subtherapeutic. Patient was trialed on a GI cocktail this helped with her upset stomach however this was different from the pain that she has from below her umbilicus to her mid chest intermittently. We will check a aortogram 06/19/21 07:25 Change of shift further care and disposition per Dr. Reddy Departure - Departure Time of Disposition: 20:00 Disposition: Home, Self-Care 01 Clinical Impression: Dyspepsia, Constipation by delayed colonic transit, Hiatal hernia - Discharge Information Prescriptions: polyethylene glycoL 3350 [MiraLAX] 17 gm PO DAILY #1 container Instructions: Hiatal Hernia, Constipation, Adult Referrals: Jen Tamez MD [Primary Care Provider] - Forms: ED Department Discharge Additional Instructions: Evaluation in the emergency room today primarily carried out by . He felt some of your symptoms may be due to gastroesophageal reflux disease. He suggest Pepcid 20 mg once daily at bedtime on a regular basis. CT scan of the chest abdomen pelvis was performed with IV contrast primarily to rule out any problems with your aorta which is the major blood vessel coming off your heart supplying blood to your entire body. CT scan proved to be negative for any aortic aneurysm or dissection of the aorta with any leak. CT scan confirms evidence of a hiatal hernia with approximately 25% of your stomach up in your chest which may give you lower retrosternal chest pressure discomfort with increased risk of reflux of acid from stomach into your lower food pipe. CT reveals normal liver spleen pancreas and kidneys. Bladder was super fall on CT exam. Bowel reveals a large amount of constipation or increased stool throughout the entire colon which is 4 and half feet length. It is likely that the constipation is causing most of your current symptoms. Suggest Citroma or magnesium citrate 8 ounces by mouth with 6 ounces of juice of choice this morning. This will take 1 to 2 hours to start to work and will make the bowels work 3-4 times often ending in the mild diarrhea. After this suggest MiraLAX powder 17 g or 1 scoop every day with beverage of choice to keep the bowels regular which hopefully will reduce your abdominal bloat sensation and increased gas. Follow-up with personal care physician if any further problems occur. Sepsis Event Note (ED) - Evaluation Sepsis Screening Result: No Definite Risk <James Reddy - Last Filed: 06/19/21 20:43> Course - Vital Signs Last Recorded V/S: Last Vital Signs Temp 36.8 C 06/19/21 05:10 Pulse 61 06/19/21 09:46 Resp 21 H 06/19/21 09:46 BP 146/74 H 06/19/21 09:46 Pulse Ox 96 06/19/21 09:46 - Orders/Labs/Meds Labs: Laboratory Tests 06/19/21 06/19/21 06/19/21 Range/Units 05:09 05:09 05:09 WBC 5.99 (3.98-10.04) K/mm3 RBC 4.54 (3.98-5.22) M/mm3 Hgb 14.5 (11.2-15.7) gm/dl Hct 43.1 (34.1-44.9) % MCV 94.9 H (79.4-94.8) fl MCH 31.9 (25.6-32.2) pg MCHC 33.6 (32.2-35.5) g/dl RDW Std Deviation 42.8 (36.4-46.3) fL Plt Count 171 L (182-369) K/mm3 MPV 10.1 (9.4-12.3) fl Neut % (Auto) 50.4 (34.0-71.1) % Lymph % (Auto) 36.6 (19.3-51.7) % [place] % (Auto) 9.7 (4.7-12.5) % Eos % (Auto) 2.8 (0.7-5.8) Baso % (Auto) 0.3 (0.1-1.2) % Neut # (Auto) 3.02 (1.56-6.13) K/mm3 Lymph # (Auto) 2.19 (1.18-3.74) K/mm3 [place] # (Auto) 0.58 H (0.24-0.36) K/mm3 Eos # (Auto) 0.17 (0.04-0.36) K/mm3 Baso # (Auto) 0.02 (0.01-0.08) K/mm3 PT 19.4 H D (9.7-12.0) SECONDS INR 1.83 APTT 38.7 H (21.7-31.4) SECONDS Sodium 141 (136-145) mEq/L Potassium 3.6 (3.5-5.1) mEq/L Chloride 105 (98-107) mEq/L Carbon Dioxide 28 (21-32) mEq/L Anion Gap 11.6 (5-15) BUN 22 H (7-18) mg/dL Creatinine 0.8 (0.55-1.02) mg/dL Est Cr Clr Drug Dosing TNP Estimated GFR (MDRD) > 60 (>60) mL/min BUN/Creatinine Ratio 27.5 H (14-18) Glucose 86 (70-99) mg/dL Calcium 8.7 (8.5-10.1) mg/dL Total Bilirubin 0.5 (0.2-1.0) mg/dL AST 23 (15-37) U/L ALT 32 (14-59) U/L Alkaline Phosphatase 57 (46-116) U/L Troponin I < 0.017 (0.00-0.056) ng/mL Total Protein 6.7 (6.4-8.2) g/dl Albumin 3.5 (3.4-5.0) g/dl Globulin 3.2 gm/dL Albumin/Globulin Ratio 1.1 (1-2) Lipase 172 (73-393) U/L Meds: Medications Discontinued Medications Generic Name Dose Route Start Last Admin Trade Name Kathe PRN Reason Stop Dose Admin Al Hydroxide/Mg Hydroxide 30 0 ml 06/19/21 05:52 06/19/21 06:58 ml/ Lidocaine HCl 15 ml PO 06/19/21 05:53 45 ml ONETIME ONE Administration Lactated Ringer's 500 mls @ 999 mls/hr 06/19/21 07:32 06/19/21 07:39 Ringers, Lactated IV 06/19/21 08:02 999 mls/hr .BOLUS ONE Administration Sodium Chloride 100 mls @ 60 mls/hr 06/19/21 08:00 06/19/21 09:11 Normal Saline IV 60 mls/hr ASDIRECTED MARANDA Administration Iopamidol 100 ml 06/19/21 07:55 06/19/21 09:11 Iopamidol 755 Mg/Ml 100 Ml Bottle IVPUSH 06/19/21 07:56 100 ml ONETIME ONE Administration Iopamidol 25 ml 06/19/21 07:55 06/19/21 09:11 Iopamidol 755 Mg/Ml 50 Ml Bottle IVPUSH 06/19/21 07:56 25 ml ONETIME ONE Administration Magnesium Citrate 240 ml 06/19/21 09:39 Magnesium Citrate Solution 296 Ml Bottle PO 06/19/21 09:40 ONETIME ONE Sodium Chloride 10 ml 06/19/21 07:55 Sodium Chloride 0.9% 10 Ml Syringe FLUSH 06/19/21 07:56 ONETIME ONE - Radiology Interpretation Free Text/Narrative:: Labs reveal a normal white count at 5.99. Differential reveals 50.4% neutrophils and 36.6% lymphocytes. Hemoglobin is 14.5 with hematocrit of 43.1. MCV is mildly elevated at 94.9. Platelet count normal at 171,000. PT is 19.4 with an INR of 1.83 PTT is 38.7. Sodium was 141 with a potassium of 3.6. Chloride 105 with a bicarb of 28. Anion gap is normal at 11.6. BUN minimally elevated at 22 with a creatinine of 0.8 and a GFR greater than 60. Glucose 86 with a calcium of 8.7. Liver function normal. Troponin I was less than 0.017 total protein 6.7 with an albumin fraction of 3.5 serum lipase normal at 172. - Re-Assessments/Exams Free Text/Narrative Re-Assessment/Exam: 06/19/21 09:14 care has been assumed from at change of shift. CT of the abdomen and pelvis with IV contrast performed to rule out any dissection of the thoracic or abdominal aorta. Ascending aorta is slightly ectatic with AP dimension of 3.2 cm. Scattered atherosclerotic changes seen within the thoracic aorta. No focal aneurysm is seen. No dissection is noted. Mild atherosclerotic changes seen within the visualized portions of the coronary arteries. Mediastinum and hilar regions show no adenopathy. No pericardial thickening is seen. Small hiatal hernia is appreciated. Lung window settings were reviewed. Slight linear densities are noted within both posterior lung bases most likely representing areas of scarring. Lungs otherwise are clear with no acute parenchymal change being seen. Bone window settings were reviewed which shows kyphosis within the spine. Compression deformity is seen within T4 which is most likely old. Scattered disc space narrowing is noted with endplate osteophytes. CT of the abdomen pelvis performed with IV contrast obtained at the same time as CT angiogram of the chest. Abdominal aorta shows scattered atherosclerotic change with no aneurysm or dissection. Both renal arteries show no focal stenosis. Superior mesenteric artery and celiac axis show no definite focal stenosis. Inferior mesenteric artery is patent. Both common iliac arteries are patent. The external iliac arteries are also patent. Visualized portions of the liver show no focal parenchymal abnormality. Prior cholecystectomy is noted with slight dilatation of the biliary tree believed to represent change from prior cholecystectomy. Pancreas shows no discrete abnormality. Spleen appears normal in size. Adrenal glands show no nodules. Kidneys show symmetric contrast enhancement with no hydronephrosis or mass. No retroperitoneal adenopathy or mesenteric abnormalities are seen. Bladder is moderately dilated with urine. No pelvic mass or adenopathy noted. Increased stool throughout the entire colon appreciated. Appendix is seen which is normal in size. Bone window settings reviewed. Mild degenerative changes seen within the spine which is most prominent within the apophyseal joints within the lumbar region. Disc space narrowing is seen at the L5-S1 level with vacuum phenomena. I have discussed the findings with both herself and her . She was reassured that she does not have any evidence of dissection of her aorta. The CT primarily reveals significant constipation of the entire colon. She does feel bloated chronically and states that intermittently she does get strong cramping and then some diarrhea which is just by passive fluids around constipated stool. Plan she will be treated with Citroma 8 ounces p.o. today with 6 ounces of juice of choice. She will then start MiraLAX powder 17 g daily to prevent constipation from recurring. She will follow up with her primary care practitioner if any further problems occur. Departure - Departure Time of Disposition: 09:40 - Discharge Information *PRESCRIPTION DRUG MONITORING PROGRAM REVIEWED*: Not Applicable *COPY OF PRESCRIPTION DRUG MONITORING REPORT IN PATIENT KYLER: Not Applicable Sepsis Event Note (ED) - Focused Exam Vital Signs: Vital Signs Pulse Resp BP Pulse Ox 06/19/21 09:46 61 21 H 146/74 H 96
[2021-06-19] MEDS ORDERED: Alum Hydrox/Mag Hydrox/Simeth 30 ML, Lidocaine 2% 15 ML PO ONE ×2 (05:52)
[2021-06-19] MEDS ORDERED: Lactated Ringers 500 ML IV ONE (07:32)
[2021-06-19] MEDS ORDERED: Iopamidol 755 Mg/ML 100 ML Bottle IVPUSH ONE (07:55)
[2021-06-19] MEDS ORDERED: Sodium Chloride 0.9% 10 ML Syringe FLUSH ONE (07:55)
[2021-06-19] MEDS ORDERED: Iopamidol 755 MG/ML 50 ML Bottle IVPUSH ONE (07:55)
[2021-06-19] MEDS ORDERED: Sodium Chloride 0.9% 100 ML IV SCH (08:00)
--- NOTE | 2021-06-19 08:05 | CR ---
Chest: Portable view of the chest was obtained. Comparison: Prior chest x-ray of 09/10/19. Heart size is felt to be slightly prominent. Coronary artery calcification is noted. Tortuous thoracic aorta is seen. Left shoulder prosthesis is noted. Lungs show no acute parenchymal change. Mild scoliosis is noted within the spine. Bony structures are osteopenic. Impression: 1. Findings as described above. 2. Nothing acute is seen. Diagnostic code #2
--- NOTE | 2021-06-19 09:00 | CT ---
CT chest, abdomen and pelvis Comparison: No prior chest CT study is available, prior chest x-ray performed earlier on the same day (5:54 AM). Findings: Ascending aorta is slightly ectatic with AP dimension of 3.2 cm. Scattered atherosclerotic change is seen within the thoracic aorta. No focal aneurysm is seen. No dissection is noted. Mild degenerative change is seen within the visualized portions of the coronary arteries. Mediastinum and hilar regions show no adenopathy. No pericardial thickening is seen. Small hiatal hernia is noted. Lung window settings were reviewed. Slight linear densities are noted within both posterior lung bases most likely representing areas of scarring. Lungs otherwise are clear with no acute parenchymal change being seen. Bone window settings were reviewed which show kyphosis within the spine. Compression deformity is seen within T4 which is most likely old. Scattered disc space narrowing is noted with endplate osteophytes. Impression: 1. Slight ectasia of the ascending aorta with no aneurysm or dissection. Scattered atherosclerotic change is seen within the aorta. 2. Mild atherosclerotic change within the coronary arteries. 3. Other findings as noted above which are felt to be chronic. Diagnostic code #2 CT abdomen and pelvis Technique: Multiple axial sections were obtained from above the dome of the diaphragm inferiorly through the pubic symphysis. Intravenous contrast was utilized during the arterial phase. Reconstructed coronal and sagittal images were obtained. Comparison: Prior CT abdomen and pelvis exam of 11/05/16. Findings: Abdominal aorta show scattered atherosclerotic change with no aneurysm or dissection. Both renal arteries show no focal stenosis. Superior mesenteric artery and celiac axis show no definite focal stenosis. Inferior mesenteric artery is patent. Both common iliac arteries are patent. External iliac arteries are patent. Visualized portions of the liver show no focal parenchymal abnormality. Prior cholecystectomy is noted with slight dilatation of the biliary tree believed to represent change from prior cholecystectomy. Pancreas shows no discrete abnormality. Spleen appears normal in size. Adrenal glands show no nodule. Kidneys show symmetric contrast enhancement with no hydronephrosis or mass. No retroperitoneal adenopathy or mesenteric abnormalities are seen. Bladder is slightly dilated with urine. No pelvic mass or adenopathy is seen. Mild increased stool is seen throughout the colon. Appendix is seen which is normal in size. Bone window settings were reviewed. Mild degenerative change is seen within the spine which is most prominent within the apophyseal joints within the lumbar region. Disc space narrowing is seen at L5-S1 with vacuum phenomena. Impression: 1. Abdominal aorta shows atherosclerotic change with no aneurysm or dissection. 2. Other senescent change as noted above. Diagnostic code #2
[2021-06-19] MEDS ORDERED: Magnesium Citrate Solution 296 ML Bottle PO ONE (09:39)
[2021-06-19 09:47] VITALS: BP 146/74; PULSE 61
== END 2021-06-19 09:46 | disposition home or self-care (01) ==
LOC: JD.ED 04:58
DX: K59.01 Slow transit constipation (principal); K44.9 Diaphragmatic hernia without obstruction or gangrene; I44.0 Atrioventricular block, first degree; I48.91 Unspecified atrial fibrillation; I13.0 Hypertensive heart and chronic kidney disease with heart failure and stage 1 through stage 4 chronic kidney disease, or unspecified chronic kidney disease; N18.2 Chronic kidney disease, stage 2 (mild); I50.9 Heart failure, unspecified; I25.10 Atherosclerotic heart disease of native coronary artery without angina pectoris; K21.9 Gastro-esophageal reflux disease without esophagitis; M19.90 Unspecified osteoarthritis, unspecified site; E03.9 Hypothyroidism, unspecified; Z79.01 Long term (current) use of anticoagulants; Z88.5 Allergy status to narcotic agent; Z88.8 Allergy status to other drugs, medicaments and biological substances; Z91.013 Allergy to seafood; Z79.899 Other long term (current) drug therapy
CPT/HCPCS: 36415; 71045; 71260; 74177; 80053; 83690; 84484; 85025; 85610; 85730; 93005; 99285; A9270; J7120; Q9967; 93010; 99284

== ENCOUNTER 2022-02-05 07:39 | Emergency (ER) | payer MEDICARE, OTHER ==
[2022-02-05 08:02] VITALS: BP 150/93; PULSE 74
[2022-02-05] MEDS ORDERED: Lidocaine 1% with EPINEPHrine 1:100,000 10 ML MDV INJECT ONE (08:12)
== END 2022-02-05 08:35 | disposition home or self-care (01) ==
LOC: JD.ED 07:39
DX: S01.81XA Laceration without foreign body of other part of head, initial encounter (principal); I48.91 Unspecified atrial fibrillation; I25.10 Atherosclerotic heart disease of native coronary artery without angina pectoris; E78.00 Pure hypercholesterolemia, unspecified; I13.0 Hypertensive heart and chronic kidney disease with heart failure and stage 1 through stage 4 chronic kidney disease, or unspecified chronic kidney disease; N18.30 Chronic kidney disease, stage 3 unspecified; I50.9 Heart failure, unspecified; K21.9 Gastro-esophageal reflux disease without esophagitis; M19.90 Unspecified osteoarthritis, unspecified site; Z86.73 Personal history of transient ischemic attack (TIA), and cerebral infarction without residual deficits; Z88.5 Allergy status to narcotic agent; Z91.013 Allergy to seafood; Z88.8 Allergy status to other drugs, medicaments and biological substances; Z79.01 Long term (current) use of anticoagulants; W50.0XXA Accidental hit or strike by another person, initial encounter
CPT/HCPCS: 12011; 99282; 99282-25

== ENCOUNTER 2023-04-06 00:21 | Emergency (ER) | payer MEDICARE, OTHER ==
[2023-04-06] MEDS ORDERED: Sodium Chloride 0.9% 10 ML Syringe FLUSH PRN (00:34)
[2023-04-06 00:42] LABS: BASOPHILS ABSOLUTE AUTO 0.03 K/mm3 (0.01-0.08); BASOPHILS PERCENT AUTO 0.3 % (0.1-1.2); EOSINOPHILS ABSOLUTE AUTO 0.23 K/mm3 (0.04-0.36); EOSINOPHILS PERCENT AUTO 2.5 (0.7-5.8); HEMATOCRIT 45.2 % (34.1-44.9); HEMOGLOBIN 14.9 gm/dl (11.2-15.7); IMMATURE GRAN ABSOLUTE AUTO 0.01 K/mm3 (0.00-0.10); IMMATURE GRAN PERCENT AUTO 0.1 % (<=1.0); LYMPHOCYTES ABSOLUTE AUTO 2.95 K/mm3 (1.18-3.74); MEAN CORPUSCULAR HEMOGLOBIN 31.1 pg (25.6-32.2); MEAN CORPUSCULAR VOLUME 94.4 fl (79.4-94.8); MEAN PLATELET VOLUME 10.4 fl (9.4-12.3); MONOCYTES ABSOLUTE AUTO 0.77 K/mm3 (0.24-0.36); MONOCYTES PERCENT AUTO 8.4 % (4.7-12.5); NEUTROPHILS ABSOLUTE AUTO 5.22 K/mm3 (1.56-6.13); NEUTROPHILS PERCENT AUTO 56.7 % (34.0-71.1); PLATELET COUNT,PLT 224 K/mm3 (182-369); RED BLOOD CELL COUNT 4.79 M/mm3 (3.98-5.22); WHITE BLOOD CELL COUNT,WBC 9.21 K/mm3 (3.98-10.04)
[2023-04-06 01:00] LABS: INR 2.88; PROTHROMBIN TIME 28.5 SECONDS (9.7-12.0)
[2023-04-06 01:07] LABS: ALBUMIN 3.6 g/dl (3.4-5.0); ANION GAP 14.3 (5-15); BILIRUBIN TOTAL 0.3 mg/dL (0.2-1.0); BUN/CREATININE RATIO 32.5 (14-18); CALCIUM 9.6 mg/dL (8.5-10.1); CREATININE 0.8 mg/dL (0.55-1.02); EST CRCL DRUG DOSING (CG) 38.09 mL/min; POTASSIUM,K 3.3 mEq/L (3.5-5.1); PROTEIN TOTAL,TP 7.1 g/dl (6.4-8.2)
[2023-04-06 02:18] VITALS: BP 163/81; PULSE 77
== END 2023-04-06 02:53 ==
LOC: JD.ED 00:21
DX: I24.9 Acute ischemic heart disease, unspecified (principal); I48.91 Unspecified atrial fibrillation; I25.10 Atherosclerotic heart disease of native coronary artery without angina pectoris; I11.0 Hypertensive heart disease with heart failure; I50.9 Heart failure, unspecified; I25.2 Old myocardial infarction; K21.9 Gastro-esophageal reflux disease without esophagitis; E03.9 Hypothyroidism, unspecified; Z79.01 Long term (current) use of anticoagulants; Z79.899 Other long term (current) drug therapy; Z88.5 Allergy status to narcotic agent; Z88.8 Allergy status to other drugs, medicaments and biological substances; Z91.013 Allergy to seafood
CPT/HCPCS: 36415; 71045; 71045-26; 80053; 83690; 84484; 85025; 85610; 93005; 93010; 99285

== ENCOUNTER 2023-04-30 10:16 | Emergency (ER) | payer MEDICARE, OTHER ==
[2023-04-30] MEDS ORDERED: Ketorolac 30 MG/ML SDV IM ONE (10:56)
[2023-04-30] MEDS ORDERED: Cyclobenzaprine 10 MG Tab PO ONE (10:57)
[2023-04-30 12:27] VITALS: BP 153/95; PULSE 83
== END 2023-04-30 12:27 | disposition home or self-care (01) ==
LOC: JD.ED 10:16
DX: S32.020A Wedge compression fracture of second lumbar vertebra, initial encounter for closed fracture (principal); M47.816 Spondylosis without myelopathy or radiculopathy, lumbar region; I48.91 Unspecified atrial fibrillation; I25.10 Atherosclerotic heart disease of native coronary artery without angina pectoris; I25.2 Old myocardial infarction; I12.9 Hypertensive chronic kidney disease with stage 1 through stage 4 chronic kidney disease, or unspecified chronic kidney disease; N18.2 Chronic kidney disease, stage 2 (mild); K21.9 Gastro-esophageal reflux disease without esophagitis; E03.9 Hypothyroidism, unspecified; Z95.5 Presence of coronary angioplasty implant and graft; Z79.01 Long term (current) use of anticoagulants; Z79.899 Other long term (current) drug therapy; Z88.5 Allergy status to narcotic agent; Z91.013 Allergy to seafood; Z88.8 Allergy status to other drugs, medicaments and biological substances
CPT/HCPCS: 72100; 96372; 99283; A9270; J1885

== ENCOUNTER 2023-05-04 05:51 | Observation (INO) | payer MEDICARE, OTHER ==
[2023-05-04] MEDS ORDERED: Ondansetron 4 MG/2 ML SDV IV PRN (07:49)
[2023-05-04] MEDS ORDERED: Acetaminophen 325 MG Tab PO PRN (07:49)
[2023-05-04] MEDS ORDERED: Docusate Sodium 100 MG Cap PO PRN (07:49)
[2023-05-04] MEDS ORDERED: Ondansetron 4 MG Tab.DIS PO PRN (07:49)
[2023-05-04] MEDS ORDERED: Temazepam 7.5 MG Cap PO PRN (07:49)
[2023-05-04] MEDS ORDERED: Polyethylene Glycol 3350 Powder 17 GM Packet PO PRN (07:49)
[2023-05-04] MEDS ORDERED: oxyCODONE 5 MG Tab PO PRN (07:49)
[2023-05-04] MEDS: Ibuprofen 600 MG Tab PO PRN ×2 (09:58→19:15)
[2023-05-04] MEDS: Cyclobenzaprine 10 MG Tab PO PRN ×2 (09:59→19:13)
[2023-05-04 10:36] LABS: INR 2.48; PROTHROMBIN TIME 24.8 SECONDS (9.7-12.0)
[2023-05-04] MEDS: Clopidogrel 75 MG Tab PO SCH (13:37)
[2023-05-04] MEDS ORDERED: Warfarin 5 MG Tab PO SCH (18:00)
[2023-05-04] MEDS ORDERED: Losartan 25 MG Tab PO SCH ×2 (21:00)
[2023-05-04] MEDS ORDERED: amLODIPine 5 MG Tab PO ONE (21:12)
[2023-05-04] MEDS ORDERED: Losartan 25 MG Tab PO ONE (21:30)
[2023-05-04] MEDS: Potassium Chloride 20 MEQ Tab.ER PO SCH (21:35)
[2023-05-05 06:11] LABS: BASOPHILS ABSOLUTE AUTO 0.03 K/mm3 (0.01-0.08); BASOPHILS PERCENT AUTO 0.7 % (0.1-1.2); EOSINOPHILS ABSOLUTE AUTO 0.24 K/mm3 (0.04-0.36); EOSINOPHILS PERCENT AUTO 5.2 (0.7-5.8); HEMATOCRIT 39.8 % (34.1-44.9); IMMATURE GRAN ABSOLUTE AUTO 0.01 K/mm3 (0.00-0.10); IMMATURE GRAN PERCENT AUTO 0.2 % (<=1.0); LYMPHOCYTES ABSOLUTE AUTO 1.45 K/mm3 (1.18-3.74); LYMPHOCYTES PERCENT AUTO 31.6 % (19.3-51.7); MEAN CORPUSCULAR HEMOGLOBIN 31.1 pg (25.6-32.2); MEAN CORPUSCULAR HGB CONC 32.7 g/dl (32.2-35.5); MEAN CORPUSCULAR VOLUME 95.2 fl (79.4-94.8); MEAN PLATELET VOLUME 10.9 fl (9.4-12.3); MONOCYTES ABSOLUTE AUTO 0.56 K/mm3 (0.24-0.36); MONOCYTES PERCENT AUTO 12.2 % (4.7-12.5); NEUTROPHILS PERCENT AUTO 50.1 % (34.0-71.1); PLATELET COUNT,PLT 154 K/mm3 (182-369); RED BLOOD CELL COUNT 4.18 M/mm3 (3.98-5.22); WHITE BLOOD CELL COUNT,WBC 4.59 K/mm3 (3.98-10.04)
[2023-05-05 06:29] LABS: INR 2.25; PROTHROMBIN TIME 22.7 SECONDS (9.7-12.0)
[2023-05-05 06:32] LABS: ANION GAP 10.9 (5-15); BUN/CREATININE RATIO 31.4 (14-18); CALCIUM 8.9 mg/dL (8.5-10.1); CREATININE 0.7 mg/dL (0.55-1.02); EST CRCL DRUG DOSING (CG) 43.53 mL/min; POTASSIUM,K 3.9 mEq/L (3.5-5.1)
[2023-05-05] MEDS ORDERED: Thyroid 60 MG Tab PO SCH (08:00)
[2023-05-05] MEDS: Cyclobenzaprine 10 MG Tab PO PRN (08:19)
[2023-05-05] MEDS: Ibuprofen 600 MG Tab PO PRN (08:21)
[2023-05-05] MEDS: Potassium Chloride 20 MEQ Tab.ER PO SCH (08:23)
[2023-05-05] MEDS: Clopidogrel 75 MG Tab PO SCH (08:23)
[2023-05-05] MEDS ORDERED: Multivitamin Tab PO SCH (09:00)
[2023-05-05] MEDS ORDERED: Metoprolol Succinate 25 MG Tab.ER PO SCH (09:00)
[2023-05-05] MEDS ORDERED: amLODIPine 5 MG Tab PO SCH ×2 (09:00→10:15)
[2023-05-05] MEDS ORDERED: Losartan 25 MG Tab PO SCH (09:00)
[2023-05-05] MEDS ORDERED: Fish Oil/Omega-3 Fatty Acids 1 Gm Cap PO SCH (09:00)
[2023-05-05] MEDS ORDERED: Vitamin B Complex With Vitamin C Cap PO SCH (09:00)
[2023-05-05] MEDS ORDERED: Furosemide 20 MG Tab PO SCH (09:00)
[2023-05-05] MEDS ORDERED: Ascorbic Acid 500 MG Tab PO SCH (09:00)
[2023-05-05 13:44] VITALS: BP 123/77; PULSE 75
[2023-05-05] MEDS ORDERED: Warfarin 2.5 MG Tab PO SCH (18:00)
[2023-05-05] MEDS ORDERED: Losartan 25 MG Tab PO ONE (21:30)
== END 2023-05-05 13:35 | disposition home or self-care (01) ==
LOC: JD.ED 05:51 → JD.MS 07:49
PROVIDERS: ADMIT Hospitalist; ATTEND Hospitalist
DX: M54.50 Low back pain, unspecified (principal); S32.020D Wedge compression fracture of second lumbar vertebra, subsequent encounter for fracture with routine healing; I48.20 Chronic atrial fibrillation, unspecified; I10 Essential (primary) hypertension; E78.00 Pure hypercholesterolemia, unspecified; I25.10 Atherosclerotic heart disease of native coronary artery without angina pectoris; K21.9 Gastro-esophageal reflux disease without esophagitis; I42.9 Cardiomyopathy, unspecified; F41.9 Anxiety disorder, unspecified; M81.0 Age-related osteoporosis without current pathological fracture; Z79.899 Other long term (current) drug therapy; Z79.890 Hormone replacement therapy; Z79.01 Long term (current) use of anticoagulants; Z88.5 Allergy status to narcotic agent; Z98.890 Other specified postprocedural states; Z90.49 Acquired absence of other specified parts of digestive tract
CPT/HCPCS: 36415; 80048; 85025; 85610; 97161; 97530; A9270; 99222; 99239; 99284; G0378

== ENCOUNTER 2023-06-01 21:06 | Emergency (ER) | payer MEDICARE, OTHER ==
[2023-06-01 22:00] LABS: BASOPHILS ABSOLUTE AUTO 0.02 K/mm3 (0.01-0.08); BASOPHILS PERCENT AUTO 0.2 % (0.1-1.2); EOSINOPHILS ABSOLUTE AUTO 0.11 K/mm3 (0.04-0.36); EOSINOPHILS PERCENT AUTO 1.3 (0.7-5.8); HEMATOCRIT 41.4 % (34.1-44.9); HEMOGLOBIN 13.3 gm/dl (11.2-15.7); IMMATURE GRAN ABSOLUTE AUTO 0.03 K/mm3 (0.00-0.10); IMMATURE GRAN PERCENT AUTO 0.3 % (<=1.0); LYMPHOCYTES ABSOLUTE AUTO 1.46 K/mm3 (1.18-3.74); LYMPHOCYTES PERCENT AUTO 16.8 % (19.3-51.7); MEAN CORPUSCULAR HEMOGLOBIN 31.4 pg (25.6-32.2); MEAN CORPUSCULAR HGB CONC 32.1 g/dl (32.2-35.5); MEAN CORPUSCULAR VOLUME 97.6 fl (79.4-94.8); MEAN PLATELET VOLUME 10.6 fl (9.4-12.3); MONOCYTES PERCENT AUTO 8.1 % (4.7-12.5); NEUTROPHILS ABSOLUTE AUTO 6.36 K/mm3 (1.56-6.13); NEUTROPHILS PERCENT AUTO 73.3 % (34.0-71.1); PLATELET COUNT,PLT 219 K/mm3 (182-369); RED BLOOD CELL COUNT 4.24 M/mm3 (3.98-5.22); WHITE BLOOD CELL COUNT,WBC 8.68 K/mm3 (3.98-10.04)
[2023-06-01 22:06] LABS: INR 2.34; PROTHROMBIN TIME 23.5 SECONDS (9.7-12.0)
[2023-06-01 22:10] LABS: ALBUMIN 3.6 g/dl (3.4-5.0); ANION GAP 12.9 (5-15); BILIRUBIN TOTAL 0.2 mg/dL (0.2-1.0); BUN/CREATININE RATIO 26.7 (14-18); CALCIUM 9.5 mg/dL (8.5-10.1); CREATININE 1.2 mg/dL (0.55-1.02); EST CRCL DRUG DOSING (CG) 25.39 mL/min; POTASSIUM,K 3.9 mEq/L (3.5-5.1); PROTEIN TOTAL,TP 7.1 g/dl (6.4-8.2)
[2023-06-01] MEDS ORDERED: Acetaminophen 325 MG/10.15 ML ML PO PRN (23:49)
[2023-06-02] MEDS ORDERED: Acetaminophen 325 MG Tab PO PRN ×2 (01:04→01:20)
[2023-06-02 06:48] VITALS: BP 139/70; PULSE 73
== END 2023-06-02 03:02 | disposition home or self-care (01) ==
LOC: JD.ED 21:06
DX: S32.021D Stable burst fracture of second lumbar vertebra, subsequent encounter for fracture with routine healing (principal); S70.02XA Contusion of left hip, initial encounter; S40.212A Abrasion of left shoulder, initial encounter; I48.91 Unspecified atrial fibrillation; K21.9 Gastro-esophageal reflux disease without esophagitis; I25.10 Atherosclerotic heart disease of native coronary artery without angina pectoris; E78.00 Pure hypercholesterolemia, unspecified; I13.0 Hypertensive heart and chronic kidney disease with heart failure and stage 1 through stage 4 chronic kidney disease, or unspecified chronic kidney disease; N18.9 Chronic kidney disease, unspecified; I50.9 Heart failure, unspecified; Z86.73 Personal history of transient ischemic attack (TIA), and cerebral infarction without residual deficits; Z88.5 Allergy status to narcotic agent; Z91.013 Allergy to seafood; Z79.899 Other long term (current) drug therapy; Z79.01 Long term (current) use of anticoagulants; W01.0XXA Fall on same level from slipping, tripping and stumbling without subsequent striking against object, initial encounter
CPT/HCPCS: 36415; 70450; 71250; 72125; 74176; 80053; 85025; 85610; 99284; A9270

== ENCOUNTER 2023-06-08 11:34 | Emergency (ER) | payer MEDICARE, OTHER ==
[2023-06-08] MEDS ORDERED: Metoprolol Tartrate 5 MG/5 ML SDV ONE ×2 (11:55→12:01)
[2023-06-08] MEDS ORDERED: Metoprolol Tartrate 5 MG/5 ML SDV IVPUSH ONE ×2 (12:02→12:41)
[2023-06-08 12:10] LABS: BASOPHILS ABSOLUTE AUTO 0.04 K/mm3 (0.01-0.08); BASOPHILS PERCENT AUTO 0.6 % (0.1-1.2); EOSINOPHILS ABSOLUTE AUTO 0.15 K/mm3 (0.04-0.36); EOSINOPHILS PERCENT AUTO 2.1 (0.7-5.8); HEMATOCRIT 39.4 % (34.1-44.9); HEMOGLOBIN 12.6 gm/dl (11.2-15.7); LYMPHOCYTES ABSOLUTE AUTO 1.86 K/mm3 (1.18-3.74); LYMPHOCYTES PERCENT AUTO 26.3 % (19.3-51.7); MEAN CORPUSCULAR HEMOGLOBIN 31.3 pg (25.6-32.2); MEAN CORPUSCULAR VOLUME 97.8 fl (79.4-94.8); MEAN PLATELET VOLUME 10.5 fl (9.4-12.3); MONOCYTES PERCENT AUTO 9.9 % (4.7-12.5); NEUTROPHILS ABSOLUTE AUTO 4.32 K/mm3 (1.56-6.13); NEUTROPHILS PERCENT AUTO 61.1 % (34.0-71.1); PLATELET COUNT,PLT 247 K/mm3 (182-369); RED BLOOD CELL COUNT 4.03 M/mm3 (3.98-5.22); WHITE BLOOD CELL COUNT,WBC 7.07 K/mm3 (3.98-10.04)
[2023-06-08 12:37] LABS: ALBUMIN 3.5 g/dl (3.4-5.0); ANION GAP 15.4 (5-15); BILIRUBIN TOTAL 0.6 mg/dL (0.2-1.0); EST CRCL DRUG DOSING (CG) 31.94 mL/min; POTASSIUM,K 3.4 mEq/L (3.5-5.1)
[2023-06-08] MEDS ORDERED: Metoprolol Succinate 25 MG Tab.ER PO ONE (13:21)
[2023-06-08 18:02] VITALS: BP 119/82; PULSE 67
== END 2023-06-08 16:40 | disposition home or self-care (01) ==
LOC: JD.ED 11:34
DX: I48.91 Unspecified atrial fibrillation (principal); I25.10 Atherosclerotic heart disease of native coronary artery without angina pectoris; I13.0 Hypertensive heart and chronic kidney disease with heart failure and stage 1 through stage 4 chronic kidney disease, or unspecified chronic kidney disease; N18.9 Chronic kidney disease, unspecified; I50.9 Heart failure, unspecified; E78.00 Pure hypercholesterolemia, unspecified; K21.9 Gastro-esophageal reflux disease without esophagitis; Z88.5 Allergy status to narcotic agent; Z88.1 Allergy status to other antibiotic agents; Z91.013 Allergy to seafood; Z79.899 Other long term (current) drug therapy; Z79.01 Long term (current) use of anticoagulants; Z79.02 Long term (current) use of antithrombotics/antiplatelets; Z86.73 Personal history of transient ischemic attack (TIA), and cerebral infarction without residual deficits
CPT/HCPCS: 36415; 71045; 80053; 84484; 85025; 96374; 96376; 99285; A9270; J3490

== ENCOUNTER 2023-11-03 16:43 | Emergency (ER) | payer MEDICARE, OTHER ==
[2023-11-03] MEDS ORDERED: Aspirin 81 MG Tab.Chew PO ONE (17:01)
[2023-11-03] MEDS ORDERED: Sodium Chloride 0.9% 10 ML Syringe FLUSH PRN (17:01)
[2023-11-03] MEDS ORDERED: Alum Hydrox/Mag Hydrox/Simeth 30 ML, Lidocaine 2% 15 ML PO ONE ×2 (17:22)
[2023-11-03 17:42] LABS: BASOPHILS PERCENT AUTO 0.6 % (0.0-1.0); EOSINOPHILS PERCENT AUTO 0.8 % (0.0-6.0); HEMATOCRIT 40.9 % (37.0-47.0); HEMOGLOBIN 13.6 gm/dl (12.0-16.0); IMMATURE GRAN ABSOLUTE AUTO 0.01 K/mm3 (0.00-0.05); IMMATURE GRAN PERCENT AUTO 0.2 % (0.0-0.4); LYMPHOCYTES ABSOLUTE AUTO 1.6 K/mm3 (1.0-4.8); LYMPHOCYTES PERCENT AUTO 30.6 % (24.0-44.0); MEAN CORPUSCULAR HEMOGLOBIN 30.5 pg (28.0-32.0); MEAN CORPUSCULAR HGB CONC 33.3 g/dl (32.0-36.0); MEAN CORPUSCULAR VOLUME 91.7 fl (83.0-99.0); MEAN PLATELET VOLUME 9.7 fl (9.4-12.3); MONOCYTES ABSOLUTE AUTO 0.5 K/mm3 (0.0-0.8); MONOCYTES PERCENT AUTO 8.8 % (0.0-8.0); PLATELET COUNT,PLT 160 K/mm3 (150-400); RED BLOOD CELL COUNT 4.46 M/mm3 (4.10-5.30); WHITE BLOOD CELL COUNT,WBC 5.09 K/mm3 (3.9-11.3)
[2023-11-03 18:20] LABS: INR 2.34; PROTHROMBIN TIME 23.5 SECONDS (9.7-12.0)
[2023-11-03 18:22] LABS: ALBUMIN 3.2 g/dl (3.4-5.0); ANION GAP 13.6 (5-15); BILIRUBIN TOTAL 0.3 mg/dL (0.2-1.0); CREATININE 1.1 mg/dL (0.55-1.02); EST CRCL DRUG DOSING (CG) 27.7 mL/min; MAGNESIUM 1.9 mg/dL (1.8-2.4); POTASSIUM,K 3.6 mEq/L (3.5-5.1); PROTEIN TOTAL,TP 6.4 g/dl (6.4-8.2)
[2023-11-03 19:38] VITALS: BP 164/84; PULSE 75
== END 2023-11-03 19:40 | disposition home or self-care (01) ==
LOC: JD.ED 16:43
DX: R07.89 Other chest pain (principal); I13.0 Hypertensive heart and chronic kidney disease with heart failure and stage 1 through stage 4 chronic kidney disease, or unspecified chronic kidney disease; I50.9 Heart failure, unspecified; N18.9 Chronic kidney disease, unspecified; E78.00 Pure hypercholesterolemia, unspecified; I25.10 Atherosclerotic heart disease of native coronary artery without angina pectoris; I48.91 Unspecified atrial fibrillation; K21.9 Gastro-esophageal reflux disease without esophagitis; E03.9 Hypothyroidism, unspecified; Z86.16 Personal history of COVID-19; Z95.5 Presence of coronary angioplasty implant and graft; Z90.710 Acquired absence of both cervix and uterus; Z79.01 Long term (current) use of anticoagulants; Z79.899 Other long term (current) drug therapy; Z88.5 Allergy status to narcotic agent; Z91.041 Radiographic dye allergy status; Z88.6 Allergy status to analgesic agent; Z91.013 Allergy to seafood; Z88.8 Allergy status to other drugs, medicaments and biological substances
CPT/HCPCS: 36415; 71045; 80053; 83735; 83880; 84484; 85025; 85610; 93005; 99285; A9270; 93010

== ENCOUNTER 2024-04-08 12:37 | Emergency (ER) | payer MEDICARE ==
[2024-04-08] MEDS: Acetaminophen 325 MG Tab PO ONE (16:49)
[2024-04-08 17:07] VITALS: BP 124/71; PULSE 53
== END 2024-04-08 17:07 | disposition home or self-care (01) ==
LOC: JD.ED 12:37
DX: M25.511 Pain in right shoulder (principal); I13.0 Hypertensive heart and chronic kidney disease with heart failure and stage 1 through stage 4 chronic kidney disease, or unspecified chronic kidney disease; I50.9 Heart failure, unspecified; N18.9 Chronic kidney disease, unspecified; I25.10 Atherosclerotic heart disease of native coronary artery without angina pectoris; I48.91 Unspecified atrial fibrillation; K21.9 Gastro-esophageal reflux disease without esophagitis; E03.9 Hypothyroidism, unspecified; E78.00 Pure hypercholesterolemia, unspecified; Z88.5 Allergy status to narcotic agent; Z91.018 Allergy to other foods; Z91.013 Allergy to seafood; Z88.8 Allergy status to other drugs, medicaments and biological substances; Z79.02 Long term (current) use of antithrombotics/antiplatelets; Z79.899 Other long term (current) drug therapy; Z86.73 Personal history of transient ischemic attack (TIA), and cerebral infarction without residual deficits; Z86.16 Personal history of COVID-19; Z95.5 Presence of coronary angioplasty implant and graft; X50.0XXA Overexertion from strenuous movement or load, initial encounter
CPT/HCPCS: 71045; 73030; 99283; A9270

== ENCOUNTER 2024-04-11 13:07 | Emergency (ER) | payer MEDICARE ==
[2024-04-11] MEDS: Sodium Chloride 0.9% 10 ML Syringe FLUSH PRN (13:53)
[2024-04-11 13:56] LABS: BASOPHILS PERCENT AUTO 0.8 % (0.0-1.0); EOSINOPHILS ABSOLUTE AUTO 0.1 K/mm3 (0.0-0.4); EOSINOPHILS PERCENT AUTO 1.9 % (0.0-6.0); HEMOGLOBIN 14.2 gm/dl (12.0-16.0); IMMATURE GRAN ABSOLUTE AUTO 0.01 K/mm3 (0.00-0.05); IMMATURE GRAN PERCENT AUTO 0.2 % (0.0-0.4); LYMPHOCYTES ABSOLUTE AUTO 1.7 K/mm3 (1.0-4.8); LYMPHOCYTES PERCENT AUTO 34.3 % (24.0-44.0); MEAN CORPUSCULAR HEMOGLOBIN 31.1 pg (28.0-32.0); MEAN CORPUSCULAR VOLUME 94.3 fl (83.0-99.0); MEAN PLATELET VOLUME 10.7 fl (9.4-12.3); MONOCYTES ABSOLUTE AUTO 0.5 K/mm3 (0.0-0.8); MONOCYTES PERCENT AUTO 9.3 % (0.0-8.0); NEUTROPHILS ABSOLUTE AUTO 2.6 K/mm3 (1.8-7.7); NEUTROPHILS PERCENT AUTO 53.5 % (41.0-71.0); PLATELET COUNT,PLT 194 K/mm3 (150-400); RED BLOOD CELL COUNT 4.56 M/mm3 (4.10-5.30); WHITE BLOOD CELL COUNT,WBC 4.84 K/mm3 (3.9-11.3)
[2024-04-11 14:15] LABS: ALBUMIN 3.4 g/dl (3.4-5.0); ANION GAP 13.8 (5-15); BILIRUBIN TOTAL 0.3 mg/dL (0.2-1.0); EST CRCL DRUG DOSING (CG) 32.79 mL/min; MAGNESIUM 2.1 mg/dL (1.8-2.4); POTASSIUM,K 3.8 mEq/L (3.5-5.1); PROTEIN TOTAL,TP 6.7 g/dl (6.4-8.2)
[2024-04-11 16:14] VITALS: BP 166/86; PULSE 53
== END 2024-04-11 16:05 | disposition home or self-care (01) ==
LOC: JD.ED 13:07
DX: R07.89 Other chest pain (principal); I13.0 Hypertensive heart and chronic kidney disease with heart failure and stage 1 through stage 4 chronic kidney disease, or unspecified chronic kidney disease; I50.9 Heart failure, unspecified; N18.9 Chronic kidney disease, unspecified; K21.9 Gastro-esophageal reflux disease without esophagitis; I25.10 Atherosclerotic heart disease of native coronary artery without angina pectoris; E03.9 Hypothyroidism, unspecified; I48.91 Unspecified atrial fibrillation; Z88.5 Allergy status to narcotic agent; Z91.018 Allergy to other foods; Z91.013 Allergy to seafood; Z79.01 Long term (current) use of anticoagulants; Z79.899 Other long term (current) drug therapy; Z86.16 Personal history of COVID-19; Z95.5 Presence of coronary angioplasty implant and graft; Z90.49 Acquired absence of other specified parts of digestive tract
CPT/HCPCS: 36415; 71045; 71045-26; 80053; 83735; 83880; 84484; 85025; 93005; 93010; 99284; 99285; J3490

== ENCOUNTER 2024-04-29 09:41 | Emergency (ER) | payer MEDICARE ==
[2024-04-29 10:03] VITALS: BP 135/75; PULSE 57
[2024-04-29 10:36] LABS: BASOPHILS PERCENT AUTO 0.6 % (0.0-1.0); EOSINOPHILS ABSOLUTE AUTO 0.1 K/mm3 (0.0-0.4); EOSINOPHILS PERCENT AUTO 0.8 % (0.0-6.0); HEMATOCRIT 42.3 % (37.0-47.0); HEMOGLOBIN 13.8 gm/dl (12.0-16.0); IMMATURE GRAN ABSOLUTE AUTO 0.02 K/mm3 (0.00-0.05); IMMATURE GRAN PERCENT AUTO 0.3 % (0.0-0.4); LYMPHOCYTES ABSOLUTE AUTO 1.6 K/mm3 (1.0-4.8); LYMPHOCYTES PERCENT AUTO 21.6 % (24.0-44.0); MEAN CORPUSCULAR HEMOGLOBIN 31.3 pg (28.0-32.0); MEAN CORPUSCULAR HGB CONC 32.6 g/dl (32.0-36.0); MEAN CORPUSCULAR VOLUME 95.9 fl (83.0-99.0); MEAN PLATELET VOLUME 10.1 fl (9.4-12.3); MONOCYTES ABSOLUTE AUTO 0.7 K/mm3 (0.0-0.8); MONOCYTES PERCENT AUTO 9.3 % (0.0-8.0); NEUTROPHILS ABSOLUTE AUTO 4.9 K/mm3 (1.8-7.7); NEUTROPHILS PERCENT AUTO 67.4 % (41.0-71.0); PLATELET COUNT,PLT 190 K/mm3 (150-400); RED BLOOD CELL COUNT 4.41 M/mm3 (4.10-5.30); WHITE BLOOD CELL COUNT,WBC 7.23 K/mm3 (3.9-11.3)
[2024-04-29 11:09] LABS: A/G RATIO 1.1 (1-2); ALBUMIN 3.3 g/dl (3.4-5.0); ANION GAP 9.9 (5-15); BILIRUBIN TOTAL 0.5 mg/dL (0.2-1.0); BUN/CREATININE RATIO 22.2 (14-18); CALCIUM 9.2 mg/dL (8.5-10.1); CREATININE 0.9 mg/dL (0.55-1.02); EST CRCL DRUG DOSING (CG) 33.23 mL/min; POTASSIUM,K 3.9 mEq/L (3.5-5.1); PROTEIN TOTAL,TP 6.4 g/dl (6.4-8.2)
[2024-04-29] MEDS: Iopamidol 612 MG/ML 100 ML Bottle IVPUSH ONE (11:41)
[2024-04-29] MEDS: Sodium Chloride 0.9% 10 ML Syringe FLUSH ONE (11:41)
[2024-04-29 14:40] LABS: APPEARANCE,URINE CLEAR (Clear); BILIRUBIN,URINE NEGATIVE (Negative); COLOR,URINE YELLOW (Yellow); GLUCOSE,URINE NEGATIVE (Negative); KETONES,URINE NEGATIVE (Negative); LEUKOCYTE ESTERASE,URINE NEGATIVE (Negative); NITRITE,URINE NEGATIVE (Negative); OCCULT BLOOD,URINE NEGATIVE (Negative); PH,URINE 7.5 (5.0-8.0); PROTEIN,URINE NEGATIVE (Negative); UROBILINOGEN,URINE 0.2 (0.2-1.0)
[2024-04-29 14:50] LABS: RBC,URINE 0-5 /hpf (0-5); WBC,URINE 0-5 /hpf (0-5)
[2024-04-29 14:51] LABS: BACTERIA,URINE MODERATE /hpf (FEW); MUCUS,URINE FEW /hpf (FEW)
== END 2024-04-29 17:15 | disposition home or self-care (01) ==
LOC: JD.ED 09:41
DX: R10.11 Right upper quadrant pain (principal); R10.31 Right lower quadrant pain; I13.0 Hypertensive heart and chronic kidney disease with heart failure and stage 1 through stage 4 chronic kidney disease, or unspecified chronic kidney disease; I50.9 Heart failure, unspecified; N18.9 Chronic kidney disease, unspecified; I25.10 Atherosclerotic heart disease of native coronary artery without angina pectoris; I48.91 Unspecified atrial fibrillation; K21.9 Gastro-esophageal reflux disease without esophagitis; Z86.73 Personal history of transient ischemic attack (TIA), and cerebral infarction without residual deficits; Z79.02 Long term (current) use of antithrombotics/antiplatelets; Z79.899 Other long term (current) drug therapy; Z88.8 Allergy status to other drugs, medicaments and biological substances; Z88.6 Allergy status to analgesic agent; Z88.5 Allergy status to narcotic agent; Z91.013 Allergy to seafood
CPT/HCPCS: 36415; 74177; 80053; 81001; 83605; 83690; 85025; 99284; J3490; Q9967

== ENCOUNTER 2025-06-06 01:23 | Emergency (ER) | payer MEDICARE ==
[2025-06-06] MEDS ORDERED: Sodium Chloride 0.9% 10 ML Syringe FLUSH PRN (01:24)
[2025-06-06] MEDS: methylPREDNISolone Sodium Succinate 125 MG/2 ML SDV IVPUSH ONE (01:43)
[2025-06-06] MEDS: Furosemide 100 MG/10 ML SDV IVPUSH ONE (01:44)
[2025-06-06 01:55] LABS: BASOPHILS ABSOLUTE AUTO 0.0 K/mm3 (0.0-0.2); BASOPHILS PERCENT AUTO 0.4 % (0.0-1.0); EOSINOPHILS ABSOLUTE AUTO 0.2 K/mm3 (0.0-0.4); EOSINOPHILS PERCENT AUTO 3.0 % (0.0-6.0); IMMATURE GRAN ABSOLUTE AUTO 0.02 K/mm3 (0.00-0.05); IMMATURE GRAN PERCENT AUTO 0.3 % (0.0-0.4); LYMPHOCYTES ABSOLUTE AUTO 1.7 K/mm3 (1.0-4.8); LYMPHOCYTES PERCENT AUTO 25.0 % (24.0-44.0); MEAN PLATELET VOLUME 10.4 fl (9.4-12.3); MONOCYTES ABSOLUTE AUTO 0.6 K/mm3 (0.0-0.8); MONOCYTES PERCENT AUTO 8.6 % (0.0-8.0); NEUTROPHILS ABSOLUTE AUTO 4.2 K/mm3 (1.8-7.7); NEUTROPHILS PERCENT AUTO 62.7 % (41.0-71.0); NRBC ABSOLUTE 0.00 (0.00-0.02); NRBC PERCENT 0.0 % (0.0-0.2); PLATELET COUNT,PLT 137 K/mm3 (150-400); RED BLOOD CELL COUNT 4.42 M/mm3 (4.10-5.30); WHITE BLOOD CELL COUNT,WBC 6.71 K/mm3 (3.9-11.3)
[2025-06-06 01:59] LABS: BASE EXCESS ARTERIAL 1.3 (-2-2.0); BICARBONATE,ARTERIAL 25.9 meq/L (22.0-26.0); O2 SATURATION ARTERIAL 100.0 % (96.0-97.0); PCO2 ARTERIAL 40.0 mmHg (35.0-45.0); PO2 ARTERIAL 142.0 mmHg (80.0-100.0)
[2025-06-06 02:00] LABS: PATIENT RESPIRATORY RATE 32.0 /MIN
[2025-06-06 02:15] LABS: INR 1.04
[2025-06-06 02:16] LABS: PTT,PARTIAL THROMBOPLSTIN TIME 26.7 SECONDS (21.7-31.4)
[2025-06-06 02:18] LABS: A/G RATIO 1.0 (1-2); ALANINE AMINOTRANSFERASE,ALT 79.0 U/L (14-59); ASPARTATE AMNIOTRANSFERASE,AST 59.0 U/L (15-37); BILIRUBIN TOTAL 0.4 mg/dL (0.2-1.0); BLOOD UREA NITROGEN,BUN 28.0 mg/dL (7-18); CARBON DIOXIDE,CO2 26.0 mEq/L (21-32); CHLORIDE,CL 108.0 mEq/L (98-107); CREATININE 0.8 mg/dL (0.55-1.02); EST CRCL DRUG DOSING (CG) 34.91 mL/min; ESTIMATED GFR 71.0 mL/min (>60); GLUCOSE RANDOM 125.0 mg/dL (70-99); POTASSIUM,K 3.5 mEq/L (3.5-5.1); PROTEIN TOTAL,TP 6.3 g/dl (6.4-8.2); SODIUM,NA 143.0 mEq/L (136-145); TROPONIN I HIGH SENSITIVITY 47.0 pg/mL (<=51)
[2025-06-06 02:24] LABS: APPEARANCE,URINE CLEAR (Clear); GLUCOSE,URINE NEGATIVE (Negative); OCCULT BLOOD,URINE TRACE-INTACT (Negative)
[2025-06-06 02:53] LABS: EPITHELIAL CELLS,URINE 0-5 /hpf (0-5)
[2025-06-06 05:04] VITALS: BP 160/79; PULSE 63
== END 2025-06-06 06:31 | disposition home or self-care (01) ==
LOC: JD.ED 01:23
DX: I13.0 Hypertensive heart and chronic kidney disease with heart failure and stage 1 through stage 4 chronic kidney disease, or unspecified chronic kidney disease (principal); I50.33 Acute on chronic diastolic (congestive) heart failure; N18.9 Chronic kidney disease, unspecified; I25.10 Atherosclerotic heart disease of native coronary artery without angina pectoris; Z90.49 Acquired absence of other specified parts of digestive tract; Z88.5 Allergy status to narcotic agent; Z88.8 Allergy status to other drugs, medicaments and biological substances; Z91.013 Allergy to seafood; Z79.899 Other long term (current) drug therapy
CPT/HCPCS: 36415; 36600; 71045; 80053; 81001; 82803; 83605; 83735; 83880; 84484; 85025; 85610; 85730; 86140; 93005; 94640; 94660; 94762; 96374; 96375; 99285; A9270; J1938; J2919; 93010; 99284